=== PATIENT | female | born 1955 | race African-American/Black ===

== ENCOUNTER → 2016-05-21 | Outpatient (REF) | payer MEDICARE, MEDICAID ==
[~2016-05-21] MED LIST: /BISO10TA OR; /PANT40TA; /SUCR1TA OR; ACET65TA OR; ALDA25TA2 OR; ASPI1TAB PO; ASPI325T; ASPI325T OR; ASPI81TA85 PO; BISO5TAB5 PO; CARA1TAB2 PO; COLA100C2 OR; DOXY100T OR; DRIS50002 PO; FERR325T OR; FERR325T PO; FURO20TA2 PO; FURO40TA2 PO; LIPI20TA OR; LOPR50TA OR; MULTIVIT OR; OMEP40CA2 PO; PERC5TAB8 OR; PERC7.5T8 OR; POTA10CA PO; POTA20TA2 OR; PRIL40CA OR; PROT1TAB2 PO; SENO8.6T5 OR; SPIR25TA2 PO; TRAM50TA2 OR; VITA500C OR; VITA500T88 PO; VITMTA PO; ZANT150T OR; atenolol PO; protonix; protonix PO
[2016-05-21 20:23] LABS: ALBUMIN 3.7 GM/DL (3.2-5.2); ALBUMIN/GLOBULIN RATIO 0.95 (1.00-1.93); ALKALINE PHOSPHATASE 99 U/L (45-117); ALT/SGPT 21 U/L (12-78); ANION GAP 7 MEQ/L (8-16); AST/SGOT 15 U/L (15-37); BILIRUBIN,TOTAL 0.4 MG/DL (0.2-1.0); BLOOD UREA NITROGEN 18 MG/DL (7-18); CALCIUM LEVEL 8.6 MG/DL (8.8-10.2); CARBON DIOXIDE LEVEL 30 MEQ/L (21-32); CHLORIDE LEVEL 104 MEQ/L (98-107); CREATININE FOR GFR 0.69 MG/DL (0.55-1.02); GLOMERULAR FILTRATION RATE > 60.0 (>45); GLUCOSE, FASTING 80 MG/DL (80-110); PERCENT SATURATION 4.6 % (13.2-37.4); POTASSIUM SERUM 4.5 MEQ/L (3.5-5.1); SODIUM LEVEL 141 MEQ/L (136-145); TOTAL IRON BINDING CAPACITY 454 UG/DL (250-450); TOTAL PROTEIN 7.6 GM/DL (6.4-8.2)
[2016-05-21 20:27] LABS: BASO % 0.5 % (0.0-1.0); EOS # 0.1 K/mm3 (0.0-0.50); EOS % 1.1 % (0.0-3.0); LARGE UNSTAINED CELL # 0.3 K/mm3 (0.0-0.4); LARGE UNSTAINED CELL % 3.5 % (0.0-4.0); LYMPH # 1.7 K/mm3 (1.5-4.5); LYMPH % 23.4 % (24.0-44.0); MEAN CORPUSCULAR HGB CONC 27.5 g/dl (32.0-36.5); MONO # 0.9 K/mm3 (0.0-0.8); MONO % 12.5 % (0.0-5.0); NEUTROPHILS # 4.2 K/mm3 (1.8-7.7); NEUTROPHILS % 58.9 % (36.0-66.0); PLATELET COUNT, AUTOMATED 267 k/mm3 (150-450); RED CELL DISTRIBUTION WIDTH 18.9 % (11.5-14.5)
[2016-05-21 20:48] LABS: ADD MORPHOLOGY? YES
[2016-05-21 21:01] LABS: ANISOCYTOSIS 1+; HYPOCHROMASIA 2+; POLYCHROMASIA 1+
== END ==
LOC: M SFHCADAM 15:45
PROVIDERS: ATTEND Physician Assistant Medical
DX: D50.9 Iron deficiency anemia, unspecified (principal); R73.01 Impaired fasting glucose; E55.9 Vitamin D deficiency, unspecified
CPT/HCPCS: 80053; 82306; 83036; 83550; 85025; G0463

== ENCOUNTER 2016-05-22 18:03 | Outpatient (CLI) | payer MEDICARE, MEDICAID ==
[~2016-05-22] VITALS: Ht 160 cm; Wt 84.1 kg
[2016-05-22] VITALS (7 sets, daily range): BP systolic 138–150; BP diastolic 61–95
[~2016-05-22 18:03] MED LIST changes: -PROT1TAB2 PO
[2016-05-23 00:35] VITALS: BP 138/65
[2016-05-23 01:10] VITALS: BP 129/71
[2016-05-23 02:10] VITALS: BP 144/67
== END 2016-05-23 02:10 | disposition home or self-care (01) ==
LOC: M OPCLIPED 18:03 → M PED 18:05 → M OPCLIPED 05-23 02:10
PROVIDERS: ATTEND Physician Assistant Medical
DX: D50.9 Iron deficiency anemia, unspecified (principal); Z88.0 Allergy status to penicillin; Z88.2 Allergy status to sulfonamides; Z79.82 Long term (current) use of aspirin; Z79.899 Other long term (current) drug therapy
CPT/HCPCS: 36415; 36430; 86850; 86900; 86901; 86920; P9016

== ENCOUNTER 2016-06-04 08:51 | Outpatient (CLI) | payer MEDICARE, MEDICAID ==
[2016-06-04] MEDS ORDERED: IRON SUCROSE 25 MG in NS 50 ML IV ONE (09:15)
[2016-06-04] MEDS ORDERED: IRON SUCROSE 75 MG in NS 100 ML IV ONE (10:00)
== END 2016-06-04 12:25 | disposition home or self-care (01) ==
LOC: M INFU 08:51
PROVIDERS: ATTEND Physician Assistant Medical
DX: D50.9 Iron deficiency anemia, unspecified (principal); E66.2 Morbid (severe) obesity with alveolar hypoventilation; Z88.0 Allergy status to penicillin; Z88.2 Allergy status to sulfonamides; Z88.8 Allergy status to other drugs, medicaments and biological substances; Z79.82 Long term (current) use of aspirin; Z79.899 Other long term (current) drug therapy
CPT/HCPCS: 96365; 96366; J1756

== ENCOUNTER 2016-06-06 18:44 | Observation (INO) | payer MEDICARE, MEDICAID ==
[~2016-06-06] VITALS: Ht 160 cm; Wt 84.1 kg
[2016-06-06 20:15] LABS: INR 1.03
[2016-06-06 20:22] LABS: ANION GAP 8 MEQ/L (8-16); BLOOD UREA NITROGEN 26 MG/DL (7-18); CALCIUM LEVEL 8.3 MG/DL (8.8-10.2); CARBON DIOXIDE LEVEL 29 MEQ/L (21-32); CHLORIDE LEVEL 106 MEQ/L (98-107); CREATININE FOR GFR 0.81 MG/DL (0.55-1.02); GLOMERULAR FILTRATION RATE > 60.0 (>45); GLUCOSE, FASTING 183 MG/DL (80-110); POTASSIUM SERUM 3.9 MEQ/L (3.5-5.1); SODIUM LEVEL 143 MEQ/L (136-145)
[2016-06-06 20:27] LABS: BASO % 0.3 % (0.0-1.0); EOS # 0.2 K/mm3 (0.0-0.50); EOS % 1.6 % (0.0-3.0); LARGE UNSTAINED CELL # 0.3 K/mm3 (0.0-0.4); LARGE UNSTAINED CELL % 2.6 % (0.0-4.0); LYMPH # 1.9 K/mm3 (1.5-4.5); LYMPH % 17.9 % (24.0-44.0); MEAN CORPUSCULAR HEMOGLOBIN 24.3 pg (27.0-33.0); MEAN CORPUSCULAR HGB CONC 28.5 g/dl (32.0-36.5); MEAN CORPUSCULAR VOLUME 85.1 fl (80.0-96.0); MONO # 0.7 K/mm3 (0.0-0.8); MONO % 6.7 % (0.0-5.0); NEUTROPHILS # 7.4 K/mm3 (1.8-7.7); NEUTROPHILS % 70.9 % (36.0-66.0); PLATELET COUNT, AUTOMATED 192 k/mm3 (150-450); RED CELL DISTRIBUTION WIDTH 22.5 % (11.5-14.5); WHITE BLOOD COUNT 10.4 K/mm3 (4.0-10.0)
[2016-06-06 20:29] LABS: ADD MORPHOLOGY? YES
[2016-06-06 21:40] LABS: ANISOCYTOSIS 3+; POIKILOCYTOSIS 1+; TEAR DROP CELLS 1+
[2016-06-06 21:41] LABS: POLYCHROMASIA 1+; SCHISTOCYTES 1+
[2016-06-06 21:42] LABS: HYPOCHROMASIA 2+
[2016-06-06] MEDS ORDERED: ISOVUE-370 76% 100ML VIAL (Q9967) As Ordered ONE (23:43)
--- NOTE | 2016-06-07 00:30 | REPUSA ---
CLINICAL HISTORY: Dyspnea, exclude PE. TECHNIQUE: Multiple incremental axial, coronal and oblique images are obtained from the thoracic inle t to the upper abdomen. Intravenous contrast material was administered as per pulmonary embolism prot ocol. COMMENTS: There is excellent opacification of pulmonary arterial system without evidence for pulmonary embolism . Aorta is of normal caliber without evidence for dissection or aneurysm. RLL opacity is compaible with pnemonia. There is no evidence of pleural or parenchymal mass. There are no pleural effusions. There is no evid ence of hilar or mediastinal lymphadenopathy. The heart and great vessels are within normal limits. Images of the upper abdomen demonstrate no evidence of adrenal mass. The bony structures are free of lytic or blastic lesions. Multilevel degenerative changes are seen in volving the visualized thoracolumbar spine. Scattered calcifications are seen involving the aorta and major branches compatible with atherosclero sis. IMPRESSION: No evidence for pulmonary embolism. RLL opacity is compaible with pnemonia. Thank you for your kind referral of this patient.
[2016-06-07] MEDS ORDERED: ONDANSETRON 4 MG TAB (S0181) PO PRN (01:00)
[2016-06-07] MEDS ORDERED: PERCOCET 5MG/325MG TAB PO PRN (01:00)
[2016-06-07] MEDS ORDERED: ONDANSETRON 4MG/2ML VIAL (J2405) IV PRN (01:00)
[2016-06-07] MEDS ORDERED: ACETAMINOPHEN TAB 650MG DOSE (2X325MG) PO PRN (01:00)
--- NOTE | 2016-06-07 01:05 | ECGEPIP ---
Stationary ECG Study [facility] Test Date: 2016-06-06 Pat Name: GHADA GARNICA Department: Room: - Gender: F Apprentice: ion : 1955 Requested By: NIKOLAI Vieyra Order Number: [id number] Reading MD: Maximiliano Dodson Measurements Intervals [place] Rate: 105 P: 47 NC: 170 QRS: 60 QRSD: 82 T: 57 QT: 363 QTc: 480 Interpretive Statements SINUS TACHYCARDIA LEFT VENTRICULAR HYPERTROPHY AND ST-T CHANGES Last tracing on 03/27/2016 at 17:27:11. The is now less ST-T abnormality Electronically Signed On 06-07-2016 1:05:10 EST by Maximiliano Dodson
[2016-06-07] MEDS ORDERED: NS 1,000 ML IV SCH (01:26)
[2016-06-07] MEDS ORDERED: FUROSEMIDE 40 MG/4 ML VIAL (J1940) IV ONE (01:30)
[2016-06-07] MEDS ORDERED: diphenhydrAMINE 25 MG CAP PO ONE (01:30)
[2016-06-07] MEDS ORDERED: ACETAMINOPHEN TAB 650MG DOSE (2X325MG) PO ONE (01:30)
[2016-06-07] MEDS ORDERED: BISO5TAB5 PO (01:39)
[2016-06-07] MEDS ORDERED: PROT1TAB2 PO (01:39)
--- NOTE | 2016-06-07 01:56 | EDDOCDS ---
Nurse's Notes [facility] Name: Ghada Garnica Age: 60 yrs Sex: Female : 1955 Arrival Date: 06/06/2016 Time: 18:44 Bed OBSERVATION Private MD: Mattie Moseley N. Diagnosis: Anemia in chronic diseases classified elsewhere-symptomatic;Shortness of breath Presentation: 06/06 18:47 Presenting complaint: Patient states: chest tightness over past 2 weeks approx but over jjr past few days it takes less activity for pt to experience tightness and SOB, blood transfusion of 2 units 10 days ago and iron transfusion this past . Adult Sepsis Screening: The patient does not have new or worsening altered mentation. Patient has a respiratory rate of greater than or equal to 22 (1 point). Systolic blood pressure is greater than 100. Patient has a qSOFA score of 1- Negative Sepsis Screen. Suicide/Homicide risk assessment- the patient denies having any suicidal and/or homicidal ideations and does not present with any other emotional, behavioral or mental health complaints. Status: Patient is not a food service coordinator or dependent. Transition of care: patient was not received from another setting of care. 18:47 Acuity: HERBIE Level 3 jjr 18:47 Method Of Arrival: Walkin/Carried/Asstd jjr Triage Assessment: 18:53 General: Appears in no apparent distress. Pain: Location: chest. HIV screening NA for jjr this visit Offered previously. Respiratory: Onset: The symptoms/episode began/occurred gradually, Airway is patent Respiratory effort is even, labored, Respiratory pattern is regular. Historical: - Allergies: PENICILLINS (Upset stomach); SULFA (SULFONAMIDES) (Upset stomach, Vomit); - Home Meds: 1. aspirin 81 mg Oral tab 1 tab once daily 2. Carafate 1 gram Oral tab 1 tab 4 times per day 3. Colace 100 mg oral cap 1 cap prn PRN 4. ferrous sulfate 325 mg (65 mg iron) Oral tab daily 5. furosemide 40 mg Oral tab 1.5 tabs once daily 6. potassium chloride 20 mEq Oral TbER 1 tab once daily 7. Protonix 40 mg Oral TbEC 1 tab once daily 8. tramadol 50 mg Oral TbDL 50 mg every 6 hours 9. Zantac 150 mg Oral tab 1 tab once daily 10. Zebeta 7.5 mg oral tab 1 tab once daily 11. spironolactone Unknown Oral once daily - PMHx: CHF; Anemia; Hypertension; hypokalemia; - PSHx: Aortic valve replacement; Cholecystectomy; Hysterectomy; ; Colonoscopy; - Social history: Smoking status: Patient states was never smoker of tobacco. No barriers to communication noted, The patient speaks fluent Hungarian. - Family history: Not pertinent. - : The pt / caregiver states he / she is not on anticoagulants. Home medication list is obtained from the patient. - Exposure Risk Screening:: None identified. Screenin:44 Screening information is obtained from the patient. Fall risk: No risks identified. kas2 Assistance ADL's: requires no assistance with activities of daily living. Abuse/DV Screen: The patient / caregiver reports he/she is: not in a situation that causes fear, pain or injury. Nutritional screening: No deficits noted. Advance Directives: Currently, there is no health care proxy. There is no active DNR order. There is no living will. There is no Power of Community Service Manager. home support is adequate. Assessment: 19:42 General: Appears in no apparent distress, uncomfortable, well nourished, well groomed, kas2 Behavior is appropriate for age, cooperative. Pain: Location: chest Pain currently is 5 out of 10 on a pain scale. Pain does not radiate. Quality of pain is described as pressure, Pain began 2-3 days ago Is intermittent. Neurological: Level of Consciousness is awake, alert, Oriented to person, place, time. Cardiovascular: Capillary refill < 3 seconds Heart tones S1 S2 present Rhythm is sinus tachycardia No ectopy. Chest pain is described as Pain is 5 out of 10 on a pain scale. quality is pressure, is located in epigastric area radiates Does not radiate. episodes are intermittent. Respiratory: Airway is patent Respiratory effort is even, unlabored, Respiratory pattern is regular, symmetrical, Breath sounds are clear. Derm: Skin is intact, Skin is dry, Skin temperature is warm. Musculoskeletal: Circulation, motion, and sensation intact Range of motion intact in all extremities. Injury Description: No known injury. 20:15 General: Patient gone to Xray via stretcher with tech.. kas2 20:32 General: Patient back from Xray via stretcher with tech. Patient resettled in bed. No kas2 distress noted. Call sherwood within reach. Will continue to monitor.. 21:21 General: Appears in no apparent distress, comfortable, Behavior is appropriate for age, kas2 cooperative. Pain: Denies pain. Neurological: Level of Consciousness is awake, alert, Oriented to person, place, time. Cardiovascular: Rhythm is sinus tachycardia No ectopy. Respiratory: Airway is patent Respiratory effort is even, unlabored, Respiratory pattern is regular, symmetrical. Derm: Skin is intact, Skin is dry, Skin temperature is warm. 22:31 General: Patient resting in bed talking on the phone. No apparent distress. Appears kas2 comfortable. Call sherwood within reach. Will continue to monitor.. 23:26 General: Appears in no apparent distress, comfortable, Behavior is appropriate for age, kas2 cooperative. Pain: Denies pain. Neurological: Level of Consciousness is awake, alert, Oriented to person, place, time. Cardiovascular: Rhythm is sinus tachycardia No ectopy. Respiratory: Airway is patent Respiratory effort is even, unlabored, Respiratory pattern is regular, Breath sounds are clear bilaterally. Derm: Skin is intact, Skin is dry, Skin temperature is warm. 23:26 General: 1st unit of PRBC's initiated. VSS. RN in room at this time for first 15 min to kas2 monitor patient. Appears comfortable. No apparent distress. Airway patent and respiratory effort even and unlabored. . 06/07 00:05 General: Patient gone to CT scan with RN via stretcher.. kas2 00:14 General: Patient back from CT scan via stretcher with RN. Resettled in bed. No distress kas2 noted. Denies pain or discomfort. Call sherwood within reach. Will continue to monitor.. 01:14 General: 1st unit of PRBC's finished running. VSS. No reaction. Patient tolerated blood kas2 well. Hospitalist in the room assessing patient at this time.. Vital Signs: 06/06 18:46 BP 173 / 76; Pulse 123; Resp 22; Temp 99.0(O); Pulse Ox 99% on R/A; elp 19:19 BP 152 / 72 (auto/); kas2 19:19 Pulse 116 MON; Pulse Ox 96% ; kas2 19:34 BP 134 / 66 (auto/); kas2 19:34 Pulse 114 MON; Pulse Ox 95% ; kas2 19:49 BP 133 / 65 (auto/); kas2 19:49 Pulse 114 MON; Pulse Ox 96% ; kas2 20:19 BP 154 / 67 (auto/); kas2 20:19 Pulse 112 MON; Pulse Ox 94% ; kas2 20:34 BP 139 / 63 (auto/); kas2 20:34 Pulse 112 MON; Pulse Ox 96% ; kas2 20:49 BP 133 / 61 (auto/); kas2 20:49 Pulse 110 MON; Pulse Ox 96% ; kas2 21:04 BP 127 / 63 (auto/); kas2 21:04 Pulse 108 MON; Pulse Ox 96% ; kas2 21:19 BP 125 / 86 (auto/); kas2 21:19 Pulse 106 MON; Pulse Ox 94% ; kas2 21:34 BP 117 / 68 (auto/); kas2 21:34 Pulse 106 MON; Pulse Ox 94% ; kas2 21:49 BP 144 / 82 (auto/); kas2 21:49 Pulse 108 MON; Pulse Ox 96% ; kas2 22:04 BP 153 / 66 (auto/); kas2 22:04 Pulse 116 MON; Pulse Ox 92% ; kas2 22:19 BP 125 / 59 (auto/); kas2 22:19 Pulse 106 MON; Pulse Ox 96% ; kas2 22:34 BP 130 / 61 (auto/); kas2 22:34 Pulse 108 MON; Pulse Ox 94% ; kas2 22:49 BP 129 / 64 (auto/); kas2 22:49 Pulse 102 MON; Pulse Ox 92% ; kas2 23:04 BP 121 / 58 (auto/); kas2 23:04 Pulse 102 MON; Pulse Ox 93% ; kas2 23:19 BP 113 / 58 (auto/); kas2 23:19 Pulse 96 MON; Pulse Ox 96% ; kas2 23:28 Resp 18; Temp 97.7(O); Pain 0/10; kas2 23:34 BP 111 / 59 (auto/); kas2 23:34 Pulse 96 MON; Pulse Ox 96% ; kas2 23:41 BP 112 / 66 (auto/); kas2 23:41 Pulse 96 MON; Pulse Ox 96% ; kas2 23:49 BP 122 / 66 (auto/); kas2 23:49 Pulse 98 MON; Pulse Ox 95% ; kas2 06/07 00:04 BP 114 / 59 (auto/); kas2 00:04 Pulse 104 MON; Pulse Ox 95% ; kas2 00:19 BP 114 / 78 (auto/); kas2 00:19 Pulse 92 MON; Pulse Ox 94% ; kas2 00:34 BP 108 / 69 (auto/); kas2 00:34 Pulse 92 MON; Pulse Ox 93% ; kas2 00:41 BP 142 / 71 (auto/); kas2 00:41 Pulse 92 MON; Pulse Ox 95% ; kas2 00:49 BP 136 / 73 (auto/); kas2 00:49 Pulse 92 MON; Pulse Ox 94% ; kas2 01:04 BP 124 / 58 (auto/); kas2 01:04 Pulse 90 MON; Pulse Ox 96% ; kas2 01:10 BP 127 / 71 (auto/); kas2 01:10 Pulse 90 MON; Pulse Ox 96% ; kas2 01:15 Resp 18; Temp 98.0(O); Pain 0/10; [facility] 01:16 BP 127 / 71; Pulse 90; Resp 18; Temp 98.0(O); Pulse Ox 96% on R/A; Pain 0/10; [facility] Vitals: 06/06 18:46 Log In Time: June 06, 2016 at 18:44. RN notified that patient meets Red Flag elp criteria. ED Course: 18:46 Patient visited by Noreen Cain PCA. elp 18:46 Mattie Moseley is Private Physician. elp 18:46 Patient visited by Noreen Cain PCA. elp 18:46 Patient moved to Waiting elp 18:47 Patient moved to Pre RCE elp 18:50 Triage Initiated jjr 18:54 Adilene Felix,DINO is Primary Nurse. jjr 18:54 Patient moved to 5 jjr 19:09 Maryana Holt RN is Primary Nurse. kas2 19:33 Nikolai Goodson DO is Attending Physician. mm11 19:36 Patient visited by Nikolai Goodson DO. mm11 19:44 Inserted saline lock: 18 gauge in right antecubital area and blood collected. The kas2 patient tolerated the procedure well. No procedures done that require assistance. 19:45 Patient visited by Maryana Holt RN. kas2 19:46 Patient visited by Nikolai Goodson DO. mm11 19:49 Type & Screen Sent. kas2 19:49 B-Type Natiuretic Peptide Sent. kas2 19:49 Basic Metabolic Profile Sent. kas2 19:49 CBC with Diff Sent. kas2 19:49 Cardiac Injury Profile Sent. kas2 19:49 Partial Thromboplastin Time Sent. kas2 19:49 Prothrombin Time Profile\E\INR Sent. kas2 19:49 Troponin Sent. kas2 19:54 Patient visited by Maryana Holt RN. kas2 20:06 EKG done. (by ED staff). Reviewed by Nikolai Goodson DO. jmv 20:07 Patient visited by Eliezer Bowden PCA. jmv 20:37 Patient visited by Maryana Holt RN. kas2 21:18 Patient visited by Maryana Holt RN. kas2 21:22 Patient visited by Maryana Holt RN. kas2 22:04 Patient moved to OBSERVATION mm11 22:15 CARDIAC INJURY PROFILE Sent. kas2 22:17 Patient visited by Maryana Holt RN. kas2 22:20 EKG done. (by ED staff). Reviewed by Nikolai Goodson DO. jmv 22:21 Patient visited by Eliezer Bowden PCA. jmv 22:32 Patient visited by Maryana Holt RN. kas2 22:45 PACKED CELLS Sent. kas2 23:28 Patient visited by Maryana Holt RN. kas2 23:44 Patient visited by Maryana Holt RN. kas2 06/07 00:08 Patient name changed from Ghada\S\\S\Hibbler\S\ to Ghada\S\ \S\Hibbler. EDMS 00:09 [facility] Payment Agreement was scanned into [employer] and attached to record. [id number] 00:19 Patient visited by Maryana Holt RN. kas2 00:34 CT Chest Angio R/O PE Returned. EDMS 01:00 Geraldine Mason is Hospitalizing Provider. mm11 01:17 ELECTROCARDIOGRAM ADULT Returned. EDMS 01:19 Patient visited by Maryana Holt RN. kas2 01:28 The patient / caregiver is instructed regarding the plan of care and ED course. kas2 Administered Medications: 06/06 19:54 Drug: NS 0.9% 500 ml [sodium chloride 0.9 % intravenous solution] Route: IV; Rate: kas2 bolus; Site: right antecubital; 22:17 Follow up: IV Status: Completed infusion; IV Intake: 500ml kas2 Intake: 22:17 IV: 500.00ml; Total: 500.00ml. kas2 Order Results: Lab Order: B-Type Natiuretic Peptide; SPEC'M 06/06/16 19:32 Test: BRAIN NATRIURETIC PEPTIDE; Value: 43.3; Range: <100; Units: PG/ML; Status: F Lab Order: Basic Metabolic Profile; SPEC'M 06/06/16 19:32 Test: GLUCOSE, FASTING; Value: 183; Range: 80-110; Abnormal: Above high normal; Units: MG/DL; Status: F Test: BLOOD UREA NITROGEN; Value: 26; Range: 7-18; Abnormal: Above high normal; Units: MG/DL; Status: F Test: CREATININE FOR GFR; Value: 0.81; Range: 0.55-1.02; Units: MG/DL; Status: F Test: GLOMERULAR FILTRATION RATE; Value: > 60.0; Range: >45; Status: F Test: SODIUM LEVEL; Value: 143; Range: 136-145; Units: MEQ/L; Status: F Test: POTASSIUM SERUM; Value: 3.9; Range: 3.5-5.1; Units: MEQ/L; Status: F Test: CHLORIDE LEVEL; Value: 106; Range: 98-107; Units: MEQ/L; Status: F Test: CARBON DIOXIDE LEVEL; Value: 29; Range: 21-32; Units: MEQ/L; Status: F Test: ANION GAP; Value: 8; Range: 8-16; Units: MEQ/L; Status: F Test: CALCIUM LEVEL; Value: 8.3; Range: 8.8-10.2; Abnormal: Below low normal; Units: MG/DL; Status: F Test Note: ; Units are mL/min/1.73 m2 Chronic Kidney Disease Staging per NKF: Stage I & II GFR >=60 Normal to Mildly Decreased Stage III GFR 30-59 Moderately Decreased Stage IV GFR 15-29 Severely Decreased Stage V GFR <15 Very Little GFR Left ESRD GFR <15 on [facility] Lab Order: CBC with Diff; SPEC'M 06/06/16 19:32 Test: WHITE BLOOD COUNT; Value: 10.4; Range: 4.0-10.0; Abnormal: Above high normal; Units: K/mm3; Status: F Test: RED BLOOD COUNT; Value: 3.38; Range: 4.00-5.40; Abnormal: Below low normal; Units: M/mm3; Status: F Test: HEMOGLOBIN; Value: 8.2; Range: 12.0-16.0; Abnormal: Below low normal; Units: g/dl; Status: F Test: HEMATOCRIT; Value: 28.7; Range: 36.0-47.0; Abnormal: Below low normal; Units: %; Status: F Test: MEAN CORPUSCULAR VOLUME; Value: 85.1; Range: 80.0-96.0; Units: fl; Status: F Test: MEAN CORPUSCULAR HEMOGLOBIN; Value: 24.3; Range: 27.0-33.0; Abnormal: Below low normal; Units: pg; Status: F Test: MEAN CORPUSCULAR HGB CONC; Value: 28.5; Range: 32.0-36.5; Abnormal: Below low normal; Units: g/dl; Status: F Test: RED CELL DISTRIBUTION WIDTH; Value: 22.5; Range: 11.5-14.5; Abnormal: Above high normal; Units: %; Status: F Test: PLATELET COUNT, AUTOMATED; Value: 192; Range: 150-450; Units: k/mm3; Status: F Test: NEUTROPHILS %; Value: 70.9; Range: 36.0-66.0; Abnormal: Above high normal; Units: %; Status: F Test: LYMPH %; Value: 17.9; Range: 24.0-44.0; Abnormal: Below low normal; Units: %; Status: F Test: MONO %; Value: 6.7; Range: 0.0-5.0; Abnormal: Above high normal; Units: %; Status: F Test: EOS %; Value: 1.6; Range: 0.0-3.0; Units: %; Status: F Test: BASO %; Value: 0.3; Range: 0.0-1.0; Units: %; Status: F Test: LARGE UNSTAINED CELL %; Value: 2.6; Range: 0.0-4.0; Units: %; Status: F Test: NEUTROPHILS #; Value: 7.4; Range: 1.8-7.7; Units: K/mm3; Status: F Test: LYMPH #; Value: 1.9; Range: 1.5-4.5; Units: K/mm3; Status: F Test: MONO #; Value: 0.7; Range: 0.0-0.8; Units: K/mm3; Status: F Test: EOS #; Value: 0.2; Range: 0.0-0.50; Units: K/mm3; Status: F Test: BASO #; Value: 0.0; Range: 0.0-0.2; Units: K/mm3; Status: F Test: LARGE UNSTAINED CELL #; Value: 0.3; Range: 0.0-0.4; Units: K/mm3; Status: F Lab Order: Cardiac Injury Profile; [facility] 06/06/16 19:32 Test: CPK CREATINE PHOSPHOKINASE; Value: 165; Range: 26-192; Units: U/L; Status: F Test: CK-MB VALUE MASS; Value: 1.8; Range: 0.0-3.6; Units: NG/ML; Status: F Test: MB/CK RELATIVE INDEX; Value: 1.09; Range: < OR =4; Status: F Test Note: ; DIAGNOSIS CRITERIA MMB ng/ml Relative Index (RI) NON-AMI < or = 5 N/A MORGAN ZONE > 5 < or = 4 AMI > 5 > 4 Lab Order: Partial Thromboplastin Time; [facility] 06/06/16 19:32 Test: PARTIAL THROMBOPLASTIN TIME; Value: 30.8; Range: 26.6-37.1; Units: SECONDS; Status: F Lab Order: Prothrombin Time Profile\E\INR; [facility] 06/06/16 19:32 Test: PROTHROMBIN TIME; Value: 13.6; Range: 12.3-14.5; Units: SECONDS; Status: F Test: INR; Value: 1.03; Status: F Test Note: ; THERAPUTIC HUMAN INR VALUES INDICATIONS NORMAL RANGES PROPHYLAXIS/TREATMENT OF: VENOUS THROMBOSIS 2.0-3.0 PULMONARY EMBOLISM 2.0-3.0 PREVENTION OF SYSTEMIC EMBOLISM FROM: TISSUE HEART VALVES 2.0-3.0 ACUTE MYOCARDIAL INFARCTION 2.0-3.0 VALVULAR HEART DISEASE 2.0-3.0 ATRIAL FIBRILLATION 2.0-3.0 MECHANICAL VALVES(HIGH RISK) 2.5-3.5 RECURRENT MYOCARDIAL INFARCTION 2.5-3.5 Lab Order: Troponin; [facility] 06/06/16 19:32 Test: TROPONIN I; Value: 0.03; Range: < 0.10; Units: NG/ML; Status: F Test Note: ; Troponin I Reference Interval for Siemens [place] LOCI: 99th Percentile= 0.00-0.045 ng/ml Risk Stratification: <= 0.10 ng/ml Decreased Risk for Adverse Clinical Events. 0.10-1.50 ng/ml Increased Risk for Adverse Clinical Events. Evaluation of additional criterion and/or repeat testing in 2-6 hours is suggested to rule out myocardial damage. >= 1.50 ng/ml Indicative of Myocardial Injury. Lab Order: Type & Screen; [facility] 06/06/16 19:32 Test: BLOOD TYPE; Value: O POS; Status: F Test: AB SCREEN (INDIRECT HAYDEN)GEL; Value: NEGATIVE; Status: F Test: IMMEDIATE SPIN CROSSMATCH; Value: [id number] O NEGATIVE Compatible? Y; Status: F Test: IMMEDIATE SPIN CROSSMATCH; Value: [id number] O POSITIVE Compatible? Y; Status: F Lab Order: RBC MORPH PROF NO CHARGE; [facility] 06/06/16 19:32 Test: PLATELET ESTIMATE; Range: NORMAL; Status: I Test: POLYCHROMASIA; Value: 1+; Status: F Test: HYPOCHROMASIA; Value: 2+; Status: F Test: POIKILOCYTOSIS; Value: 1+; Status: F Test: BASOPHILIC STIPPLING; Value: 1+; Status: F Test: ANISOCYTOSIS; Value: 3+; Status: F Test: SCHISTOCYTES; Value: 1+; Status: F Test: TEAR DROP CELLS; Value: 1+; Status: F Test: PLATELET ESTIMATE; Value: NORMAL; Range: NORMAL; Status: F Lab Order: CARDIAC INJURY PROFILE; [facility] 06/06/16 22:09 Test: CPK CREATINE PHOSPHOKINASE; Value: 240; Range: 26-192; Abnormal: Above high normal; Units: U/L; Status: F Test: CK-MB VALUE MASS; Value: 1.3; Range: 0.0-3.6; Units: NG/ML; Status: F Test: MB/CK RELATIVE INDEX; Value: 0.54; Range: < OR =4; Status: F Test Note: ; DIAGNOSIS CRITERIA MMB ng/ml Relative Index (RI) NON-AMI < or = 5 N/A MORGAN ZONE > 5 < or = 4 AMI > 5 > 4 Lab Order: TROPONIN; SPEC'M 06/06/16 22:09 Test: TROPONIN I; Value: 0.03; Range: < 0.10; Units: NG/ML; Status: F Test Note: ; Troponin I Reference Interval for Siemens [place] LOCI: 99th Percentile= 0.00-0.045 ng/ml Risk Stratification: <= 0.10 ng/ml Decreased Risk for Adverse Clinical Events. 0.10-1.50 ng/ml Increased Risk for Adverse Clinical Events. Evaluation of additional criterion and/or repeat testing in 2-6 hours is suggested to rule out myocardial damage. >= 1.50 ng/ml Indicative of Myocardial Injury. Radiology Order: CT Chest Angio R/O PE Test: CT Chest Angio R/O PE REASON FOR EXAMINATION: Shortness of Breath; ; CLINICAL HISTORY: Dyspnea, exclude PE.; TECHNIQUE: Multiple incremental axial, coronal and oblique images are obtained from the thoracic inle; t to the upper abdomen. Intravenous contrast material was administered as per pulmonary embolism prot; ocol.; COMMENTS:; There is excellent opacification of pulmonary arterial system without evidence for pulmonary embolism; . Aorta is of normal caliber without evidence for dissection or aneurysm.; RLL opacity is compaible with pnemonia.; There is no evidence of pleural or parenchymal mass. There are no pleural effusions. There is no evid; ence of hilar or mediastinal lymphadenopathy. The heart and great vessels are within normal limits.; Images of the upper abdomen demonstrate no evidence of adrenal mass.; The bony structures are free of lytic or blastic lesions. Multilevel degenerative changes are seen in; volving the visualized thoracolumbar spine.; Scattered calcifications are seen involving the aorta and major branches compatible with atherosclero; sis.; IMPRESSION:; No evidence for pulmonary embolism.; RLL opacity is compaible with pnemonia.; Thank you for your kind referral of this patient.; ; Radiology Order: ELECTROCARDIOGRAM ADULT Test: ELECTROCARDIOGRAM ADULT REASON FOR EXAMINATION: REPEAT; Stationary ECG Study; [facility]; ; Test Date: 2016-06-06; Pat Name: GHADA GARNICA Department:; Room: -; Gender: F Bench Scientist: ion; : 1955 Requested By: NIKOLAI Vieyra; Order Number: [id number] Reading MD: Maximiliano Dodson; Measurements; Intervals [place]; Rate: 105 P: 47; HI: 170 QRS: 60; QRSD: 82 T: 57; QT: 363; QTc: 480; Interpretive Statements; SINUS TACHYCARDIA; LEFT VENTRICULAR HYPERTROPHY AND ST-T CHANGES; Last tracing on 03/27/2016 at 17:27:11. The is now less ST-T abnormality; Electronically Signed On 06-07-2016 1:05:10 EST by Maximiliano Dodson; Outcome: 06/07 01:01 Decision to Hospitalize by Provider. mm11 01:27 Discharge Assessment: patient administered narcotics - no. The following High Risk [facility] Discharge criteria are identified: None. Admitted to Med/Surg accompanied by tech, via stretcher, with chart. Condition: good Condition: stable Condition: improved. CT Study completed. Property :Personal belongings accompany Pt. 01:55 Patient left the ED. [facility] Signatures: Dispatcher [employer] EDMS Nikolai Goodson, DO DO mm11 Solange Gipson RN RN jjr Patchen, Erin, FIELD MARKETING LEAD FIELD MARKETING LEAD Tania Zavala, Reg Reg [id number] Maryana Holt RN RN kas2 Eliezer Bowden, FIELD MARKETING LEAD FIELD MARKETING LEAD jmv Corrections: (The following items were deleted from the chart) 06/06 22:24 22:17 PACKED CELLS+BBK sent. [facility] EDID [id number]
--- NOTE | 2016-06-07 01:56 | EDDOCDS ---
Physician Documentation [facility] Name: Nedra Astudillo Age: 60 yrs Sex: Female : 1955 Arrival Date: 06/06/2016 Time: 18:44 Bed OBSERVATION Private MD: Mattie Moseley N. Disposition: 06/07/16 01:01 Hospitalization ordered by Geraldine Mason for Inpatient Admission. Preliminary diagnosis are Anemia in chronic diseases classified elsewhere - symptomatic, Shortness of breath. - Bed requested for [address] [place]. - Status is Inpatient Admission. kas2 - Condition is Stable. - Problem is an acute exacerbation. - Symptoms have improved. Historical: - Allergies: PENICILLINS (Upset stomach); SULFA (SULFONAMIDES) (Upset stomach, Vomit); - Home Meds: 1. aspirin 81 mg Oral tab 1 tab once daily 2. Carafate 1 gram Oral tab 1 tab 4 times per day 3. Colace 100 mg oral cap 1 cap prn PRN 4. ferrous sulfate 325 mg (65 mg iron) Oral tab daily 5. furosemide 40 mg Oral tab 1.5 tabs once daily 6. potassium chloride 20 mEq Oral TbER 1 tab once daily 7. Protonix 40 mg Oral TbEC 1 tab once daily 8. tramadol 50 mg Oral TbDL 50 mg every 6 hours 9. Zantac 150 mg Oral tab 1 tab once daily 10. Zebeta 7.5 mg oral tab 1 tab once daily 11. spironolactone Unknown Oral once daily - PMHx: CHF; Anemia; Hypertension; hypokalemia; - PSHx: Aortic valve replacement; Cholecystectomy; Hysterectomy; ; Colonoscopy; - Social history: Smoking status: Patient states was never smoker of tobacco. No barriers to communication noted, The patient speaks fluent Khmer. - Family history: Not pertinent. - : The pt / caregiver states he / she is not on anticoagulants. Home medication list is obtained from the patient. - Exposure Risk Screening:: None identified. Vital Signs: 06/06 18:46 BP 173 / 76; Pulse 123; Resp 22; Temp 99.0(O); Pulse Ox 99% on R/A; elp 19:19 BP 152 / 72 (auto/); kas2 19:19 Pulse 116 MON; Pulse Ox 96% ; kas2 19:34 BP 134 / 66 (auto/); kas2 19:34 Pulse 114 MON; Pulse Ox 95% ; kas2 19:49 BP 133 / 65 (auto/); kas2 19:49 Pulse 114 MON; Pulse Ox 96% ; kas2 20:19 BP 154 / 67 (auto/); kas2 20:19 Pulse 112 MON; Pulse Ox 94% ; kas2 20:34 BP 139 / 63 (auto/); kas2 20:34 Pulse 112 MON; Pulse Ox 96% ; kas2 20:49 BP 133 / 61 (auto/); kas2 20:49 Pulse 110 MON; Pulse Ox 96% ; kas2 21:04 BP 127 / 63 (auto/); kas2 21:04 Pulse 108 MON; Pulse Ox 96% ; kas2 21:19 BP 125 / 86 (auto/); kas2 21:19 Pulse 106 MON; Pulse Ox 94% ; kas2 21:34 BP 117 / 68 (auto/); kas2 21:34 Pulse 106 MON; Pulse Ox 94% ; kas2 21:49 BP 144 / 82 (auto/); kas2 21:49 Pulse 108 MON; Pulse Ox 96% ; kas2 22:04 BP 153 / 66 (auto/); kas2 22:04 Pulse 116 MON; Pulse Ox 92% ; kas2 22:19 BP 125 / 59 (auto/); kas2 22:19 Pulse 106 MON; Pulse Ox 96% ; kas2 22:34 BP 130 / 61 (auto/); kas2 22:34 Pulse 108 MON; Pulse Ox 94% ; kas2 22:49 BP 129 / 64 (auto/); kas2 22:49 Pulse 102 MON; Pulse Ox 92% ; kas2 23:04 BP 121 / 58 (auto/); kas2 23:04 Pulse 102 MON; Pulse Ox 93% ; kas2 23:19 BP 113 / 58 (auto/); kas2 23:19 Pulse 96 MON; Pulse Ox 96% ; kas2 23:28 Resp 18; Temp 97.7(O); Pain 0/10; kas2 23:34 BP 111 / 59 (auto/); kas2 23:34 Pulse 96 MON; Pulse Ox 96% ; kas2 23:41 BP 112 / 66 (auto/); kas2 23:41 Pulse 96 MON; Pulse Ox 96% ; kas2 23:49 BP 122 / 66 (auto/); kas2 23:49 Pulse 98 MON; Pulse Ox 95% ; kas2 06/07 00:04 BP 114 / 59 (auto/); kas2 00:04 Pulse 104 MON; Pulse Ox 95% ; kas2 00:19 BP 114 / 78 (auto/); kas2 00:19 Pulse 92 MON; Pulse Ox 94% ; kas2 00:34 BP 108 / 69 (auto/); kas2 00:34 Pulse 92 MON; Pulse Ox 93% ; kas2 00:41 BP 142 / 71 (auto/); kas2 00:41 Pulse 92 MON; Pulse Ox 95% ; kas2 00:49 BP 136 / 73 (auto/); kas2 00:49 Pulse 92 MON; Pulse Ox 94% ; kas2 01:04 BP 124 / 58 (auto/); kas2 01:04 Pulse 90 MON; Pulse Ox 96% ; kas2 01:10 BP 127 / 71 (auto/); kas2 01:10 Pulse 90 MON; Pulse Ox 96% ; kas2 01:15 Resp 18; Temp 98.0(O); Pain 0/10; kas2 01:16 BP 127 / 71; Pulse 90; Resp 18; Temp 98.0(O); Pulse Ox 96% on R/A; Pain 0/10; kas2 MDM: 06/06 19:46 NS 0.9% 500 ml IV at bolus once ordered. mm11 19:46 Chemical Laboratory Chief/Pulse Ox/q 30 min VS ordered. mm11 19:46 IV Saline Lock ordered. mm11 19:46 Rhythm Strip to chart ordered. mm11 19:46 Undress patient appropriately for examination ordered. mm11 19:48 Chest, 2 View (pa\E\lat) Ordered. EDMS 19:48 B-Type Natiuretic Peptide Ordered. EDMS 19:48 Basic Metabolic Profile Ordered. EDMS 19:48 CBC with Diff Ordered. EDMS 19:48 Cardiac Injury Profile Ordered. EDMS 19:48 Partial Thromboplastin Time Ordered. EDMS 19:48 Prothrombin Time Profile\E\INR Ordered. EDMS 19:48 Troponin Ordered. EDMS 19:48 Type & Screen Ordered. EDMS 19:48 ECG WITH READING ER PHYS+CARDIAG ordered. EDMS 20:30 RBC MORPH PROF NO CHARGE Ordered. EDMS 21:03 Basic Metabolic Profile Reviewed. mm11 21:03 CBC with Diff Reviewed. mm11 21:03 B-Type Natiuretic Peptide Reviewed. mm11 21:03 Cardiac Injury Profile Reviewed. mm11 21:03 Partial Thromboplastin Time Reviewed. mm11 21:03 Prothrombin Time Profile\E\INR Reviewed. mm11 21:03 Troponin Reviewed. mm11 21:03 Type & Screen Reviewed. mm11 21:05 The patient was assigned to Observation Status due to uncertainty of mm11 diagnosis/disposition, The patient was assigned to Observation Status due to the intensity of required treatment, and remained under my care. 21:59 Redraw CIP &Troponin (put time in details section) ordered. mm11 21:59 Repeat EKG (put time details section) ordered. mm11 22:01 CT Chest Angio R/O PE Ordered. EDMS 22:01 Repeat EKG (put time details section) complete. jlm 22:01 Redraw CIP &Troponin (put time in details section) complete. jlm 22:03 CARDIAC INJURY PROFILE Ordered. EDMS 22:03 TROPONIN Ordered. EDMS 22:04 ELECTROCARDIOGRAM ADULT ordered. EDMS 22:19 CBC with Diff Reviewed. mm11 22:19 RBC MORPH PROF NO CHARGE Reviewed. mm11 22:24 PACKED CELLS Ordered. EDMS 22:25 Transfuse PRBC's 1 unit, ensure PRBCs ordered in lab ordered. mm11 22:56 CARDIAC INJURY PROFILE Reviewed. mm11 22:56 Type & Screen Reviewed. mm11 22:56 TROPONIN Reviewed. mm11 23:36 Financial registration complete. [facility] 06/07 00:09 [facility] Payment Agreement was scanned into [employer] and attached to record. [email or web address] 00:38 Type & Screen Reviewed. mm11 00:38 CT Chest Angio R/O PE Reviewed. mm11 01:00 Admission / Observation Status ordered. EDMS 01:00 NO ADDED SALT DIET ordered. EDMS 01:00 CARDIAC MARKER PANEL Ordered. EDMS 01:01 CARDIAC MARKER PANEL Ordered. EDMS 01:01 BED REQUEST+ADM ordered. EDMS 01:36 PACKED CELLS Ordered. EDMS 01:36 TYPE & SCREEN Ordered. EDMS Administered Medications: 06/06 19:54 Drug: NS 0.9% 500 ml [sodium chloride 0.9 % intravenous solution] Route: IV; Rate: kas2 bolus; Site: right antecubital; 22:17 Follow up: IV Status: Completed infusion; IV Intake: 500ml kas2 Signatures: Dispatcher [employer] EDMS Goodson Lenard, DO DO mm11 Solange Gipson, RN RN Lisa Hannah RN RN [email or web address] Nancy Oglesby, Quality Assurance Assessor Unit [facility] Tania Crandall, Reg Reg [email or web address] Maryana HoltRN RN kas2 The chart was reviewed and I authenticate all verbal orders and agree with the evaluation and treatment provided.Corrections: (The following items were deleted from the chart) 22: 22:01 PACKED CELLS+BBK ordered. EDMS EDMS : 22:02 TYPE & SCREEN ordered. EDMS EDMS Attachments: 06/07 00:09 [facility] Payment Agreement [email or web address] MTDD
[2016-06-07 02:00] VITALS: BP 130/77
--- NOTE | 2016-06-07 02:08 | HPEPDOC ---
Medical History and Physical Date of Admission Jun 07, 2016 at 00:54 History and Physical HISTORY AND PHYSICAL Date of admission: 06/07/2016 PCP: JESSE Chau Chief complaint: Short of breath with chest pressure HPI: 60-year-old female with chronic diastolic CHF, hypertension, aortic stenosis status post biosynthetic valve replacement, chronic anemia requiring monthly transfusions for the past 5 years, who presented with shortness of breath and chest pressure. She reports that her most recent transfusion was approximately 2 weeks ago when her hemoglobin was 8.0. She did not feel much better after this so her PCP ordered an iron transfusion which happened this past week. She states that over the last several days she has had severe progression of her shortness of breath and has also had central chest pressure any time she exerts herself even the slightest. She states that this chest pressure does not radiate anywhere. Her primary physicians suspect that this is secondary to her chronic GI bleed. The patient has had multiple scopes done, with the most recent EGD and colonoscopy being in 2014, but no bleed was ever identified. However, a small bowel capsule endoscopy in [place] did reveal the source to be from the second part of the duodenum. She states that she has also had some dizziness while standing, but she denies any dark or tarry stool. Past medical history: Chronic diastolic CHF, hypertension, aortic stenosis status post biosynthetic valve replacement, chronic anemia requiring monthly transfusions Past surgical history: Hysterectomy, BSO, cholecystectomy, , bioprosthetic aortic valve replacement Family history: Diabetes mellitus, pancreatic cancer Social history: The patient does not smoke, drink any alcohol, or use drugs. She is normally independent at baseline. She is a mother of 4, and currently has one of her children living with her. Allergies: Penicillin, sulfa Review of systems: General: Positive for chills. Negative for fever Eyes: Negative for vision changes and ocular discharge ENT: Negative for sore throat and nose bleed Cardiovascular: Positive for chest pressure, negative for palpitations Respiratory: Positive for shortness of breath, negative for cough GI: Negative for nausea, vomiting, diarrhea, constipation Musculoskeletal: Negative for neck and back pain Skin: Negative for rash Neuro: Positive for headache and dizziness with exertion, negative for numbness and tingling Psych: Negative for depression and suicidal ideation Endocrine: Negative for polyuria : Negative for dysuria Heme: Negative for bruising and bleeding Home meds: See below Physical exam: Vital signs: Blood pressure 127/71, HR 89, temperature 99.0, O2 sat 97% on room air, RR 16 Gen.: awake, alert, no acute distress Eyes: Extraocular movements intact, normal sclera ENT: Moist mucous membranes Cardiovascular: RRR, no murmurs rubs or gallops Lungs: clear to auscultation bilaterally, no rales, rhonchi, or wheeze Abdomen: Soft, NT/ND, normal BS Musculoskeletal: normal range of motion Extremities: No peripheral edema Neuro: alert and oriented 3, normal speech, no focal deficits Psych: Normal mood with congruent affect Labs and radiology: See below Hemoglobin 8.2 Troponin negative [address] of the chest is negative for pulmonary embolism does show a potential right lower lobe infiltrate Assessment and plan: 60-year-old female with chronic diastolic CHF, hypertension, aortic stenosis status post biosynthetic valve replacement, chronic anemia requiring monthly transfusions for the past 5 years, who presented with shortness of breath and chest pressure. She is admitted for symptomatic anemia. 1. Symptomatic anemia: The patient has a known chronic GI bleed, requiring recurrent transfusion. Her most recent transfusion was 2 weeks ago when her hemoglobin was 8.0. She is only at 8.2 today and demonstrates classic symptoms of anemia, with chest pressure and shortness of breath that worsened with exertion. We will transfuse her another 2 units of PRBCs. Continue home iron and PPI. 2. Shortness of breath: I suspect that this is entirely secondary to her symptomatic anemia. The CT of her chest does not show any pulmonary embolism, but it does report a possible right lower lobe infiltrate. Since she is afebrile , has a normal white count, and denies cough, I do not suspect that this is pneumonia. However, we will continue to follow her vital signs and clinical course closely. 3. Chest pressure: Again, I suspect that this is entirely secondary to her symptomatic anemia. Her EKG is unchanged, and her initial 2 troponins are negative. We will check another troponin, but I do not suspect that this will be revealing. 4. Chronic diastolic CHF: The patient currently appears compensated. We will continue her home Lasix, spironolactone, and potassium supplement. We will give her a dose of IV Lasix after her transfusion. 5. Hypertension: Continue home beta desirae, spironolactone, and Lasix. 6. Aortic stenosis status post biosynthetic valve replacement: Continue home baby aspirin. DVT prophylaxis: SCDs Dispo: in place in observation status on the service of Dr. Moy CODE STATUS: Full code Vital Signs see above Laboratory Data Labs 24H Laboratory Tests 2 06/06/16 19:32: Activated Partial Thromboplast Time 30.8, Anion Gap 8, Anisocytosis 3+, B-Type Natriuretic Peptide 43.3, Basophilic Stippling 1+, White Blood Count 10.4H, Red Blood Count 3.38L, Hemoglobin 8.2L, Hematocrit 28.7L, Mean Corpuscular Volume 85.1, Mean Corpuscular Hemoglobin 24.3L, Mean Corpuscular Hemoglobin Concent 28.5L, Red Cell Distribution Width 22.5H, Platelet Count 192, Neutrophils (%) ( Auto) 70.9H, Lymphocytes (%) (Auto) 17.9L, Monocytes (%) (Auto) 6.7H, Eosinophils (%) (Auto) 1.6, Basophils (%) (Auto) 0.3, Neutrophils # (Auto) 7.4, Lymphocytes # (Auto) 1.9, Monocytes # (Auto) 0.7, Eosinophils # (Auto) 0.2, Basophils # (Auto) 0.0, Blood Urea Nitrogen 26H, Creatinine 0.81, Sodium Level 143, Potassium Level 3.9, Chloride Level 106, Carbon Dioxide Level 29, Calcium Level 8.3L, Total Creatine Kinase 165, Creatine Kinase MB 1.8, Creatine Kinase MB Relative Index 1.09, Glomerular Filtration Rate > 60.0, Hypochromasia 2+, Large Unclassified Cells # 0.3, Large Unclassified Cells % 2.6, Platelet Estimate NORMAL, Poikilocytosis 1+, Polychromasia 1+, Prothromb Time International Ratio 1.03, Prothrombin Time 13.6, Schistocytes 1+, Tear Drop Cells 1+, Troponin I 0.03 06/06/16 22:09: Total Creatine Kinase 240H, Creatine Kinase MB 1.3, Creatine Kinase MB Relative Index 0.54, Troponin I 0.03 CBC/BMP Laboratory Tests 06/06/16 19:32 Calcium Level 8.3 L, Total Creatine Kinase 165, Red Blood Count 3.38 L, Mean Corpuscular Volume 85.1, Mean Corpuscular Hemoglobin 24.3 L, Mean Corpuscular Hemoglobin Concent 28.5 L, Red Cell Distribution Width 22.5 H, Neutrophils (%) ( Auto) 70.9 H, Lymphocytes (%) (Auto) 17.9 L, Monocytes (%) (Auto) 6.7 H, Eosinophils (%) (Auto) 1.6, Basophils (%) (Auto) 0.3, Neutrophils # (Auto) 7.4, Lymphocytes # (Auto) 1.9, Monocytes # (Auto) 0.7, Eosinophils # (Auto) 0.2, Basophils # (Auto) 0.0 Home Medications Scheduled Aspirin (Aspirin 81) 81 Mg Tab 81 MG PO DAILY Bisoprolol Fumarate (Bisoprolol Fumarate) 5 Mg Tab 5 MG PO DAILY Ferrous Sulfate (Ferrous Sulfate) 325 Mg Tab 325 MG PO DAILY Furosemide (Furosemide) 40 Mg Tab 60 MG PO DAILY Pantoprazole Sodium Sesquihydr (Protonix) 40 Mg Tab 40 MG PO DAILY Potassium Chloride (Klor-Con M10) 10 Meq Tabcr 20 MEQ PO DAILY Spironolactone (Spironolactone) 25 Mg Tab 25 MG PO DAILY Sucralfate (Carafate) 1 Gm Tab 1 GM PO QID Allergies Coded Allergies: Sulfa Drugs (Verified Adverse Reaction, Intermediate, UPSET STOMACH, ) Sulfamethoxazole (Verified Adverse Reaction, Intermediate, UPSET STOMACH, 08/10/12) Trimethoprim (Verified Adverse Reaction, Intermediate, UPSET STOMACH, ) Penicillins (Verified Adverse Reaction, Mild, UPSET STOMACH, 08/10/12) NAUSEA CRISTAL LIU Jun 07, 2016 02:08
[2016-06-07] MEDS ORDERED: FUROSEMIDE 100 MG/10 ML VIAL (J1940) IV ONE (02:15)
[2016-06-07 06:00] VITALS: BP 122/74
[2016-06-07 06:18] LABS: MEAN CORPUSCULAR HEMOGLOBIN 25.8 pg (27.0-33.0); MEAN CORPUSCULAR HGB CONC 30.7 g/dl (32.0-36.5); MEAN CORPUSCULAR VOLUME 84.2 fl (80.0-96.0); RED CELL DISTRIBUTION WIDTH 22.6 % (11.5-14.5); WHITE BLOOD COUNT 8.8 K/mm3 (4.0-10.0)
[2016-06-07] MEDS ORDERED: SUCRALFATE 1 GM TAB PO SCH (09:00)
[2016-06-07] MEDS ORDERED: SPIRONOLACTONE 25 MG TAB PO SCH (09:00)
[2016-06-07] MEDS ORDERED: ASPIRIN 81 MG ENTERIC TAB PO SCH (09:00)
[2016-06-07] MEDS ORDERED: PANTOPRAZOLE 40MG TAB (PROTONIX) PO SCH (09:00)
[2016-06-07] MEDS ORDERED: POTASSIUM CHLORIDE 10 MEQ SR TABLET PO SCH (09:00)
[2016-06-07] MEDS ORDERED: FERROUS SULFATE 325MG TAB PO SCH (09:00)
[2016-06-07] MEDS ORDERED: BISOPROLOL FUMARATE 5 MG TAB PO SCH (09:00)
[2016-06-07] MEDS ORDERED: FUROSEMIDE 20 MG TAB PO SCH (09:00)
[2016-06-07 09:01] VITALS: BP 122/74
--- NOTE | 2016-06-07 15:46 | ECGEPIP ---
Stationary ECG Study [facility] - ED Test Date: 2016-06-06 Pat Name: GHADA GARNICA Department: Room: [place] [address] Gender: F Etiology Teacher: ion : 1955 Requested By: NIKOLAI Vieyra Order Number: [id number] Reading MD: Geeta Morrow Measurements Intervals [place] Rate: 111 P: 24 UT: 120 QRS: 64 QRSD: 85 T: 51 QT: 351 QTc: 478 Interpretive Statements SINUS TACHYCARDIA LEFT VENTRICULAR HYPERTROPHY AND ST-T CHANGE VS ISCHEMIA INCREASED RATE 03/27/16 Electronically Signed On 06-07-2016 15:45:47 EST by Geeta Morrow
--- NOTE | 2016-06-08 11:06 | REP ---
PA and lateral chest: Comparison is 03/27/2016. There is elevation of both hemidiaphragms, as previously. There is chronic atelectasis above the elevated right hemidiaphragm. There is a large air bubble in the gastric fundus beneath the left hemidiaphragm. These findings are unchanged. The lung cunha otherwise clear. Cardiac size is normal. The jaden, mediastinum, and bony thorax are unremarkable. There is a prosthetic cardiac valve, unchanged. Impression: No new or acute cardiopulmonary findings. No change from the previous study. Signed by Baltazar Huff MD 06/07/2016 08:21 A
--- NOTE | 2016-06-09 02:56 | EDDOCDS ---
Nurse's Notes [facility] Name: Nedra Garnica Age: 60 yrs Sex: Female : 1955 Arrival Date: 06/06/2016 Time: 18:44 Bed OBSERVATION Private MD: Mattie Moseley N. Diagnosis: Anemia in chronic diseases classified elsewhere-symptomatic;Shortness of breath Presentation: 06/06 18:47 Presenting complaint: Patient states: chest tightness over past 2 weeks approx but over jjr past few days it takes less activity for pt to experience tightness and SOB, blood transfusion of 2 units 10 days ago and iron transfusion this past . Adult Sepsis Screening: The patient does not have new or worsening altered mentation. Patient has a respiratory rate of greater than or equal to 22 (1 point). Systolic blood pressure is greater than 100. Patient has a qSOFA score of 1- Negative Sepsis Screen. Suicide/Homicide risk assessment- the patient denies having any suicidal and/or homicidal ideations and does not present with any other emotional, behavioral or mental health complaints. Status: Patient is not a check services clerk or dependent. Transition of care: patient was not received from another setting of care. 18:47 Acuity: HERBIE Level 3 jjr 18:47 Method Of Arrival: Walkin/Carried/Asstd jjr Triage Assessment: 18:53 General: Appears in no apparent distress. Pain: Location: chest. HIV screening NA for jjr this visit Offered previously. Respiratory: Onset: The symptoms/episode began/occurred gradually, Airway is patent Respiratory effort is even, labored, Respiratory pattern is regular. Historical: - Allergies: PENICILLINS (Upset stomach); SULFA (SULFONAMIDES) (Upset stomach, Vomit); - Home Meds: 1. aspirin 81 mg Oral tab 1 tab once daily 2. Carafate 1 gram Oral tab 1 tab 4 times per day 3. Colace 100 mg oral cap 1 cap prn PRN 4. ferrous sulfate 325 mg (65 mg iron) Oral tab daily 5. furosemide 40 mg Oral tab 1.5 tabs once daily 6. potassium chloride 20 mEq Oral TbER 1 tab once daily 7. Protonix 40 mg Oral TbEC 1 tab once daily 8. tramadol 50 mg Oral TbDL 50 mg every 6 hours 9. Zantac 150 mg Oral tab 1 tab once daily 10. Zebeta 7.5 mg oral tab 1 tab once daily 11. spironolactone Unknown Oral once daily - PMHx: CHF; Anemia; Hypertension; hypokalemia; - PSHx: Aortic valve replacement; Cholecystectomy; Hysterectomy; ; Colonoscopy; - Social history: Smoking status: Patient states was never smoker of tobacco. No barriers to communication noted, The patient speaks fluent Nepali. - Family history: Not pertinent. - : The pt / caregiver states he / she is not on anticoagulants. Home medication list is obtained from the patient. - Exposure Risk Screening:: None identified. Screenin:44 Screening information is obtained from the patient. Fall risk: No risks identified. kas2 Assistance ADL's: requires no assistance with activities of daily living. Abuse/DV Screen: The patient / caregiver reports he/she is: not in a situation that causes fear, pain or injury. Nutritional screening: No deficits noted. Advance Directives: Currently, there is no health care proxy. There is no active DNR order. There is no living will. There is no Power of Medical Pathology Teacher. home support is adequate. Assessment: 19:42 General: Appears in no apparent distress, uncomfortable, well nourished, well groomed, kas2 Behavior is appropriate for age, cooperative. Pain: Location: chest Pain currently is 5 out of 10 on a pain scale. Pain does not radiate. Quality of pain is described as pressure, Pain began 2-3 days ago Is intermittent. Neurological: Level of Consciousness is awake, alert, Oriented to person, place, time. Cardiovascular: Capillary refill < 3 seconds Heart tones S1 S2 present Rhythm is sinus tachycardia No ectopy. Chest pain is described as Pain is 5 out of 10 on a pain scale. quality is pressure, is located in epigastric area radiates Does not radiate. episodes are intermittent. Respiratory: Airway is patent Respiratory effort is even, unlabored, Respiratory pattern is regular, symmetrical, Breath sounds are clear. Derm: Skin is intact, Skin is dry, Skin temperature is warm. Musculoskeletal: Circulation, motion, and sensation intact Range of motion intact in all extremities. Injury Description: No known injury. 20:15 General: Patient gone to Xray via stretcher with tech.. kas2 20:32 General: Patient back from Xray via stretcher with tech. Patient resettled in bed. No kas2 distress noted. Call sherwood within reach. Will continue to monitor.. 21:21 General: Appears in no apparent distress, comfortable, Behavior is appropriate for age, kas2 cooperative. Pain: Denies pain. Neurological: Level of Consciousness is awake, alert, Oriented to person, place, time. Cardiovascular: Rhythm is sinus tachycardia No ectopy. Respiratory: Airway is patent Respiratory effort is even, unlabored, Respiratory pattern is regular, symmetrical. Derm: Skin is intact, Skin is dry, Skin temperature is warm. 22:31 General: Patient resting in bed talking on the phone. No apparent distress. Appears kas2 comfortable. Call sherwood within reach. Will continue to monitor.. 23:26 General: Appears in no apparent distress, comfortable, Behavior is appropriate for age, kas2 cooperative. Pain: Denies pain. Neurological: Level of Consciousness is awake, alert, Oriented to person, place, time. Cardiovascular: Rhythm is sinus tachycardia No ectopy. Respiratory: Airway is patent Respiratory effort is even, unlabored, Respiratory pattern is regular, Breath sounds are clear bilaterally. Derm: Skin is intact, Skin is dry, Skin temperature is warm. 23:26 General: 1st unit of PRBC's initiated. VSS. RN in room at this time for first 15 min to kas2 monitor patient. Appears comfortable. No apparent distress. Airway patent and respiratory effort even and unlabored. . 06/07 00:05 General: Patient gone to CT scan with RN via stretcher.. kas2 00:14 General: Patient back from CT scan via stretcher with RN. Resettled in bed. No distress kas2 noted. Denies pain or discomfort. Call sherwood within reach. Will continue to monitor.. 01:14 General: 1st unit of PRBC's finished running. VSS. No reaction. Patient tolerated blood kas2 well. Hospitalist in the room assessing patient at this time.. Vital Signs: 06/06 18:46 BP 173 / 76; Pulse 123; Resp 22; Temp 99.0(O); Pulse Ox 99% on R/A; elp 19:19 BP 152 / 72 (auto/); kas2 19:19 Pulse 116 MON; Pulse Ox 96% ; kas2 19:34 BP 134 / 66 (auto/); kas2 19:34 Pulse 114 MON; Pulse Ox 95% ; kas2 19:49 BP 133 / 65 (auto/); kas2 19:49 Pulse 114 MON; Pulse Ox 96% ; kas2 20:19 BP 154 / 67 (auto/); kas2 20:19 Pulse 112 MON; Pulse Ox 94% ; kas2 20:34 BP 139 / 63 (auto/); kas2 20:34 Pulse 112 MON; Pulse Ox 96% ; kas2 20:49 BP 133 / 61 (auto/); kas2 20:49 Pulse 110 MON; Pulse Ox 96% ; kas2 21:04 BP 127 / 63 (auto/); kas2 21:04 Pulse 108 MON; Pulse Ox 96% ; kas2 21:19 BP 125 / 86 (auto/); kas2 21:19 Pulse 106 MON; Pulse Ox 94% ; kas2 21:34 BP 117 / 68 (auto/); kas2 21:34 Pulse 106 MON; Pulse Ox 94% ; kas2 21:49 BP 144 / 82 (auto/); kas2 21:49 Pulse 108 MON; Pulse Ox 96% ; kas2 22:04 BP 153 / 66 (auto/); kas2 22:04 Pulse 116 MON; Pulse Ox 92% ; kas2 22:19 BP 125 / 59 (auto/); kas2 22:19 Pulse 106 MON; Pulse Ox 96% ; kas2 22:34 BP 130 / 61 (auto/); kas2 22:34 Pulse 108 MON; Pulse Ox 94% ; kas2 22:49 BP 129 / 64 (auto/); kas2 22:49 Pulse 102 MON; Pulse Ox 92% ; kas2 23:04 BP 121 / 58 (auto/); kas2 23:04 Pulse 102 MON; Pulse Ox 93% ; kas2 23:19 BP 113 / 58 (auto/); kas2 23:19 Pulse 96 MON; Pulse Ox 96% ; kas2 23:28 Resp 18; Temp 97.7(O); Pain 0/10; kas2 23:34 BP 111 / 59 (auto/); kas2 23:34 Pulse 96 MON; Pulse Ox 96% ; kas2 23:41 BP 112 / 66 (auto/); kas2 23:41 Pulse 96 MON; Pulse Ox 96% ; kas2 23:49 BP 122 / 66 (auto/); kas2 23:49 Pulse 98 MON; Pulse Ox 95% ; kas2 06/07 00:04 BP 114 / 59 (auto/); kas2 00:04 Pulse 104 MON; Pulse Ox 95% ; kas2 00:19 BP 114 / 78 (auto/); kas2 00:19 Pulse 92 MON; Pulse Ox 94% ; kas2 00:34 BP 108 / 69 (auto/); kas2 00:34 Pulse 92 MON; Pulse Ox 93% ; kas2 00:41 BP 142 / 71 (auto/); kas2 00:41 Pulse 92 MON; Pulse Ox 95% ; kas2 00:49 BP 136 / 73 (auto/); kas2 00:49 Pulse 92 MON; Pulse Ox 94% ; kas2 01:04 BP 124 / 58 (auto/); kas2 01:04 Pulse 90 MON; Pulse Ox 96% ; kas2 01:10 BP 127 / 71 (auto/); kas2 01:10 Pulse 90 MON; Pulse Ox 96% ; kas2 01:15 Resp 18; Temp 98.0(O); Pain 0/10; [facility] 01:16 BP 127 / 71; Pulse 90; Resp 18; Temp 98.0(O); Pulse Ox 96% on R/A; Pain 0/10; [facility] Vitals: 06/06 18:46 Log In Time: June 06, 2016 at 18:44. RN notified that patient meets Red Flag elp criteria. ED Course: 18:46 Patient visited by Noreen Cain PCA. elp 18:46 Mattie Moseley is Private Physician. elp 18:46 Patient visited by Noreen Cain PCA. elp 18:46 Patient moved to Waiting elp 18:47 Patient moved to Pre RCE elp 18:50 Triage Initiated jjr 18:54 Adilene Felix,DINO is Primary Nurse. jjr 18:54 Patient moved to 5 jjr 19:09 Maryana Holt RN is Primary Nurse. kas2 19:33 Nikolai Goodson DO is Attending Physician. mm11 19:36 Patient visited by Nikolai Goodson DO. mm11 19:44 Inserted saline lock: 18 gauge in right antecubital area and blood collected. The kas2 patient tolerated the procedure well. No procedures done that require assistance. 19:45 Patient visited by Maryana Holt RN. kas2 19:46 Patient visited by Nikolai Goodson DO. mm11 19:49 Type & Screen Sent. kas2 19:49 B-Type Natiuretic Peptide Sent. kas2 19:49 Basic Metabolic Profile Sent. kas2 19:49 CBC with Diff Sent. kas2 19:49 Cardiac Injury Profile Sent. kas2 19:49 Partial Thromboplastin Time Sent. kas2 19:49 Prothrombin Time Profile\E\INR Sent. kas2 19:49 Troponin Sent. kas2 19:54 Patient visited by Maryana Holt RN. kas2 20:06 EKG done. (by ED staff). Reviewed by Nikolai Goodson DO. jmv 20:07 Patient visited by Eliezer Bowden PCA. jmv 20:37 Patient visited by Maryana Holt RN. kas2 21:18 Patient visited by Maryana Holt RN. kas2 21:22 Patient visited by Maryana Holt RN. kas2 22:04 Patient moved to OBSERVATION mm11 22:15 CARDIAC INJURY PROFILE Sent. kas2 22:17 Patient visited by Maryana Holt RN. kas2 22:20 EKG done. (by ED staff). Reviewed by Nikolai Goodson DO. jmv 22:21 Patient visited by Eliezer Bowden PCA. jmv 22:32 Patient visited by Maryana Holt RN. kas2 22:45 PACKED CELLS Sent. kas2 23:28 Patient visited by Maryana Holt RN. kas2 23:44 Patient visited by Maryana Holt RN. kas2 06/07 00:08 Patient name changed from Nedra\S\\S\Hibbler\S\ to Nedra\S\ \S\Hibbler. EDMS 00:09 [facility] Payment Agreement was scanned into [employer] and attached to record. ks16 00:19 Patient visited by Maryana Holt RN. kas2 00:34 CT Chest Angio R/O PE Returned. EDMS 01:00 Geraldine Mason is Hospitalizing Provider. mm11 01:17 ELECTROCARDIOGRAM ADULT Returned. EDMS 01:19 Patient visited by Maryana Holt RN. kas2 01:28 The patient / caregiver is instructed regarding the plan of care and ED course. kas2 02:10 Patient visited by Maryana Holt RN. kas2 19:30 Radiology Report was scanned into [employer] and attached to record. kf3 19:30 Consents was scanned into [employer] and attached to record. kf3 19:31 ECG/EKG was scanned into [employer] and attached to record. kf3 19:31 Trend VS was scanned into [employer] and attached to record. kf3 20:29 T-Sheet-- Draft Copy was scanned into [employer] and attached to record. klr Administered Medications: 06/06 19:54 Drug: NS 0.9% 500 ml [sodium chloride 0.9 % intravenous solution] Route: IV; Rate: kas2 bolus; Site: right antecubital; 22:17 Follow up: IV Status: Completed infusion; IV Intake: 500ml kas2 Attachments: 19:30 Consents kf3 19:31 Trend VS kf3 Intake: 06/06 22:17 IV: 500.00ml; Total: 500.00ml. kas2 Order Results: Lab Order: B-Type Natiuretic Peptide; SPEC'M 06/06/16 19:32 Test: BRAIN NATRIURETIC PEPTIDE; Value: 43.3; Range: <100; Units: PG/ML; Status: F Lab Order: Basic Metabolic Profile; SPEC'M 06/06/16 19:32 Test: GLUCOSE, FASTING; Value: 183; Range: 80-110; Abnormal: Above high normal; Units: MG/DL; Status: F Test: BLOOD UREA NITROGEN; Value: 26; Range: 7-18; Abnormal: Above high normal; Units: MG/DL; Status: F Test: CREATININE FOR GFR; Value: 0.81; Range: 0.55-1.02; Units: MG/DL; Status: F Test: GLOMERULAR FILTRATION RATE; Value: > 60.0; Range: >45; Status: F Test: SODIUM LEVEL; Value: 143; Range: 136-145; Units: MEQ/L; Status: F Test: POTASSIUM SERUM; Value: 3.9; Range: 3.5-5.1; Units: MEQ/L; Status: F Test: CHLORIDE LEVEL; Value: 106; Range: 98-107; Units: MEQ/L; Status: F Test: CARBON DIOXIDE LEVEL; Value: 29; Range: 21-32; Units: MEQ/L; Status: F Test: ANION GAP; Value: 8; Range: 8-16; Units: MEQ/L; Status: F Test: CALCIUM LEVEL; Value: 8.3; Range: 8.8-10.2; Abnormal: Below low normal; Units: MG/DL; Status: F Test Note: ; Units are mL/min/1.73 m2 Chronic Kidney Disease Staging per NKF: Stage I & II GFR >=60 Normal to Mildly Decreased Stage III GFR 30-59 Moderately Decreased Stage IV GFR 15-29 Severely Decreased Stage V GFR <15 Very Little GFR Left ESRD GFR <15 on PLANT PULLER Lab Order: CBC with Diff; SPEC'M 06/06/16 19:32 Test: WHITE BLOOD COUNT; Value: 10.4; Range: 4.0-10.0; Abnormal: Above high normal; Units: K/mm3; Status: F Test: RED BLOOD COUNT; Value: 3.38; Range: 4.00-5.40; Abnormal: Below low normal; Units: M/mm3; Status: F Test: HEMOGLOBIN; Value: 8.2; Range: 12.0-16.0; Abnormal: Below low normal; Units: g/dl; Status: F Test: HEMATOCRIT; Value: 28.7; Range: 36.0-47.0; Abnormal: Below low normal; Units: %; Status: F Test: MEAN CORPUSCULAR VOLUME; Value: 85.1; Range: 80.0-96.0; Units: fl; Status: F Test: MEAN CORPUSCULAR HEMOGLOBIN; Value: 24.3; Range: 27.0-33.0; Abnormal: Below low normal; Units: pg; Status: F Test: MEAN CORPUSCULAR HGB CONC; Value: 28.5; Range: 32.0-36.5; Abnormal: Below low normal; Units: g/dl; Status: F Test: RED CELL DISTRIBUTION WIDTH; Value: 22.5; Range: 11.5-14.5; Abnormal: Above high normal; Units: %; Status: F Test: PLATELET COUNT, AUTOMATED; Value: 192; Range: 150-450; Units: k/mm3; Status: F Test: NEUTROPHILS %; Value: 70.9; Range: 36.0-66.0; Abnormal: Above high normal; Units: %; Status: F Test: LYMPH %; Value: 17.9; Range: 24.0-44.0; Abnormal: Below low normal; Units: %; Status: F Test: MONO %; Value: 6.7; Range: 0.0-5.0; Abnormal: Above high normal; Units: %; Status: F Test: EOS %; Value: 1.6; Range: 0.0-3.0; Units: %; Status: F Test: BASO %; Value: 0.3; Range: 0.0-1.0; Units: %; Status: F Test: LARGE UNSTAINED CELL %; Value: 2.6; Range: 0.0-4.0; Units: %; Status: F Test: NEUTROPHILS #; Value: 7.4; Range: 1.8-7.7; Units: K/mm3; Status: F Test: LYMPH #; Value: 1.9; Range: 1.5-4.5; Units: K/mm3; Status: F Test: MONO #; Value: 0.7; Range: 0.0-0.8; Units: K/mm3; Status: F Test: EOS #; Value: 0.2; Range: 0.0-0.50; Units: K/mm3; Status: F Test: BASO #; Value: 0.0; Range: 0.0-0.2; Units: K/mm3; Status: F Test: LARGE UNSTAINED CELL #; Value: 0.3; Range: 0.0-0.4; Units: K/mm3; Status: F Lab Order: Cardiac Injury Profile; SPEC'M 06/06/16 19:32 Test: CPK CREATINE PHOSPHOKINASE; Value: 165; Range: 26-192; Units: U/L; Status: F Test: CK-MB VALUE MASS; Value: 1.8; Range: 0.0-3.6; Units: NG/ML; Status: F Test: MB/CK RELATIVE INDEX; Value: 1.09; Range: < OR =4; Status: F Test Note: ; DIAGNOSIS CRITERIA MMB ng/ml Relative Index (RI) NON-AMI < or = 5 N/A MORGAN ZONE > 5 < or = 4 AMI > 5 > 4 Lab Order: Partial Thromboplastin Time; SPEC'M 06/06/16 19:32 Test: PARTIAL THROMBOPLASTIN TIME; Value: 30.8; Range: 26.6-37.1; Units: SECONDS; Status: F Lab Order: Prothrombin Time Profile\E\INR; SPEC'M 06/06/16 19:32 Test: PROTHROMBIN TIME; Value: 13.6; Range: 12.3-14.5; Units: SECONDS; Status: F Test: INR; Value: 1.03; Status: F Test Note: ; THERAPUTIC HUMAN INR VALUES INDICATIONS NORMAL RANGES PROPHYLAXIS/TREATMENT OF: VENOUS THROMBOSIS 2.0-3.0 PULMONARY EMBOLISM 2.0-3.0 PREVENTION OF SYSTEMIC EMBOLISM FROM: TISSUE HEART VALVES 2.0-3.0 ACUTE MYOCARDIAL INFARCTION 2.0-3.0 VALVULAR HEART DISEASE 2.0-3.0 ATRIAL FIBRILLATION 2.0-3.0 MECHANICAL VALVES(HIGH RISK) 2.5-3.5 RECURRENT MYOCARDIAL INFARCTION 2.5-3.5 Lab Order: Troponin; SPEC'M 06/06/16 19:32 Test: TROPONIN I; Value: 0.03; Range: < 0.10; Units: NG/ML; Status: F Test Note: ; Troponin I Reference Interval for [employer] LOCI: 99th Percentile= 0.00-0.045 ng/ml Risk Stratification: <= 0.10 ng/ml Decreased Risk for Adverse Clinical Events. 0.10-1.50 ng/ml Increased Risk for Adverse Clinical Events. Evaluation of additional criterion and/or repeat testing in 2-6 hours is suggested to rule out myocardial damage. >= 1.50 ng/ml Indicative of Myocardial Injury. Lab Order: Type & Screen; SPEC'M 06/06/16 19:32 Test: BLOOD TYPE; Value: O POS; Status: F Test: AB SCREEN (INDIRECT HAYDEN)GEL; Value: NEGATIVE; Status: F Test: IMMEDIATE SPIN CROSSMATCH; Value: [id number] O NEGATIVE Compatible? Y; Status: F Test: IMMEDIATE SPIN CROSSMATCH; Value: [id number] O POSITIVE Compatible? Y; Status: F Lab Order: RBC MORPH PROF NO CHARGE; SPEC'M 06/06/16 19:32 Test: PLATELET ESTIMATE; Range: NORMAL; Status: I Test: POLYCHROMASIA; Value: 1+; Status: F Test: HYPOCHROMASIA; Value: 2+; Status: F Test: POIKILOCYTOSIS; Value: 1+; Status: F Test: BASOPHILIC STIPPLING; Value: 1+; Status: F Test: ANISOCYTOSIS; Value: 3+; Status: F Test: SCHISTOCYTES; Value: 1+; Status: F Test: TEAR DROP CELLS; Value: 1+; Status: F Test: PLATELET ESTIMATE; Value: NORMAL; Range: NORMAL; Status: F Lab Order: CARDIAC INJURY PROFILE; SPEC'M 06/06/16 22:09 Test: CPK CREATINE PHOSPHOKINASE; Value: 240; Range: 26-192; Abnormal: Above high normal; Units: U/L; Status: F Test: CK-MB VALUE MASS; Value: 1.3; Range: 0.0-3.6; Units: NG/ML; Status: F Test: MB/CK RELATIVE INDEX; Value: 0.54; Range: < OR =4; Status: F Test Note: ; DIAGNOSIS CRITERIA MMB ng/ml Relative Index (RI) NON-AMI < or = 5 N/A MORGAN ZONE > 5 < or = 4 AMI > 5 > 4 Lab Order: TROPONIN; SPEC'M 06/06/16 22:09 Test: TROPONIN I; Value: 0.03; Range: < 0.10; Units: NG/ML; Status: F Test Note: ; Troponin I Reference Interval for [employer] LOCI: 99th Percentile= 0.00-0.045 ng/ml Risk Stratification: <= 0.10 ng/ml Decreased Risk for Adverse Clinical Events. 0.10-1.50 ng/ml Increased Risk for Adverse Clinical Events. Evaluation of additional criterion and/or repeat testing in 2-6 hours is suggested to rule out myocardial damage. >= 1.50 ng/ml Indicative of Myocardial Injury. Radiology Order: CT Chest Angio R/O PE Test: CT Chest Angio R/O PE REASON FOR EXAMINATION: Shortness of Breath; ; CLINICAL HISTORY: Dyspnea, exclude PE.; TECHNIQUE: Multiple incremental axial, coronal and oblique images are obtained from the thoracic inle; t to the upper abdomen. Intravenous contrast material was administered as per pulmonary embolism prot; ocol.; COMMENTS:; There is excellent opacification of pulmonary arterial system without evidence for pulmonary embolism; . Aorta is of normal caliber without evidence for dissection or aneurysm.; RLL opacity is compaible with pnemonia.; There is no evidence of pleural or parenchymal mass. There are no pleural effusions. There is no evid; ence of hilar or mediastinal lymphadenopathy. The heart and great vessels are within normal limits.; Images of the upper abdomen demonstrate no evidence of adrenal mass.; The bony structures are free of lytic or blastic lesions. Multilevel degenerative changes are seen in; volving the visualized thoracolumbar spine.; Scattered calcifications are seen involving the aorta and major branches compatible with atherosclero; sis.; IMPRESSION:; No evidence for pulmonary embolism.; RLL opacity is compaible with pnemonia.; Thank you for your kind referral of this patient.; ; Radiology Order: ELECTROCARDIOGRAM ADULT Test: ELECTROCARDIOGRAM ADULT REASON FOR EXAMINATION: REPEAT; Stationary ECG Study; [facility]; ; Test Date: 2016-06-06; Pat Name: NEDRA GARNICA Department:; Room: -; Gender: F Plant Operator Helper: ion; : 1955 Requested By: NIKOLAI Vieyra; Order Number: [id number] Reading MD: Maximiliano Dodson; Measurements; Intervals [place]; Rate: 105 P: 47; MO: 170 QRS: 60; QRSD: 82 T: 57; QT: 363; QTc: 480; Interpretive Statements; SINUS TACHYCARDIA; LEFT VENTRICULAR HYPERTROPHY AND ST-T CHANGES; Last tracing on 03/27/2016 at 17:27:11. The is now less ST-T abnormality; Electronically Signed On 06-07-2016 1:05:10 EST by Maximiliano Dodson; Outcome: 06/07 01:01 Decision to Hospitalize by Provider. mm11 01:27 Discharge Assessment: patient administered narcotics - no. The following High Risk [facility] Discharge criteria are identified: None. Admitted to Med/Surg accompanied by tech, via stretcher, with chart. Condition: good Condition: stable Condition: improved. CT Study completed. Property :Personal belongings accompany Pt. 01:55 Patient left the ED. kas2 Signatures: Dispatcher [employer] Nikolai Connors DO DO mm11 Carlos Rainey, Reg Reg kf3 Solange Gipson, RN RN bertinr Noreen Cain, DIRECTOR OF SPECIAL EVENTS DIRECTOR OF SPECIAL EVENTS Tania Zavala, Reg Reg ks16 Maryana HoltRN RN kas2 Emmy Duval Jose, JOSELITO DIRECTOR OF SPECIAL EVENTS jmv Corrections: (The following items were deleted from the chart) 06/06 22:24 22:17 PACKED CELLS+BBK sent. tho DUQUE Chart Complete MTDD
--- NOTE | 2016-06-09 02:56 | EDDOCDS ---
Physician Documentation [facility] Name: Nedra Astudillo Age: 60 yrs Sex: Female : 1955 Arrival Date: 06/06/2016 Time: 18:44 Bed OBSERVATION Private MD: Mattie Moseley N. Disposition: 06/07/16 01:01 Hospitalization ordered by Geraldine Mason for Inpatient Admission. Preliminary diagnosis are Anemia in chronic diseases classified elsewhere - symptomatic, Shortness of breath. - Bed requested for 4 [place]. - Status is Inpatient Admission. kas2 - Condition is Stable. - Problem is an acute exacerbation. - Symptoms have improved. Historical: - Allergies: PENICILLINS (Upset stomach); SULFA (SULFONAMIDES) (Upset stomach, Vomit); - Home Meds: 1. aspirin 81 mg Oral tab 1 tab once daily 2. Carafate 1 gram Oral tab 1 tab 4 times per day 3. Colace 100 mg oral cap 1 cap prn PRN 4. ferrous sulfate 325 mg (65 mg iron) Oral tab daily 5. furosemide 40 mg Oral tab 1.5 tabs once daily 6. potassium chloride 20 mEq Oral TbER 1 tab once daily 7. Protonix 40 mg Oral TbEC 1 tab once daily 8. tramadol 50 mg Oral TbDL 50 mg every 6 hours 9. Zantac 150 mg Oral tab 1 tab once daily 10. Zebeta 7.5 mg oral tab 1 tab once daily 11. spironolactone Unknown Oral once daily - PMHx: CHF; Anemia; Hypertension; hypokalemia; - PSHx: Aortic valve replacement; Cholecystectomy; Hysterectomy; ; Colonoscopy; - Social history: Smoking status: Patient states was never smoker of tobacco. No barriers to communication noted, The patient speaks fluent Georgian. - Family history: Not pertinent. - : The pt / caregiver states he / she is not on anticoagulants. Home medication list is obtained from the patient. - Exposure Risk Screening:: None identified. Vital Signs: 06/06 18:46 BP 173 / 76; Pulse 123; Resp 22; Temp 99.0(O); Pulse Ox 99% on R/A; elp 19:19 BP 152 / 72 (auto/); kas2 19:19 Pulse 116 MON; Pulse Ox 96% ; kas2 19:34 BP 134 / 66 (auto/); kas2 19:34 Pulse 114 MON; Pulse Ox 95% ; kas2 19:49 BP 133 / 65 (auto/); kas2 19:49 Pulse 114 MON; Pulse Ox 96% ; kas2 20:19 BP 154 / 67 (auto/); kas2 20:19 Pulse 112 MON; Pulse Ox 94% ; kas2 20:34 BP 139 / 63 (auto/); kas2 20:34 Pulse 112 MON; Pulse Ox 96% ; kas2 20:49 BP 133 / 61 (auto/); kas2 20:49 Pulse 110 MON; Pulse Ox 96% ; kas2 21:04 BP 127 / 63 (auto/); kas2 21:04 Pulse 108 MON; Pulse Ox 96% ; kas2 21:19 BP 125 / 86 (auto/); kas2 21:19 Pulse 106 MON; Pulse Ox 94% ; kas2 21:34 BP 117 / 68 (auto/); kas2 21:34 Pulse 106 MON; Pulse Ox 94% ; kas2 21:49 BP 144 / 82 (auto/); kas2 21:49 Pulse 108 MON; Pulse Ox 96% ; kas2 22:04 BP 153 / 66 (auto/); kas2 22:04 Pulse 116 MON; Pulse Ox 92% ; kas2 22:19 BP 125 / 59 (auto/); kas2 22:19 Pulse 106 MON; Pulse Ox 96% ; kas2 22:34 BP 130 / 61 (auto/); kas2 22:34 Pulse 108 MON; Pulse Ox 94% ; kas2 22:49 BP 129 / 64 (auto/); kas2 22:49 Pulse 102 MON; Pulse Ox 92% ; kas2 23:04 BP 121 / 58 (auto/); kas2 23:04 Pulse 102 MON; Pulse Ox 93% ; kas2 23:19 BP 113 / 58 (auto/); kas2 23:19 Pulse 96 MON; Pulse Ox 96% ; kas2 23:28 Resp 18; Temp 97.7(O); Pain 0/10; kas2 23:34 BP 111 / 59 (auto/); kas2 23:34 Pulse 96 MON; Pulse Ox 96% ; kas2 23:41 BP 112 / 66 (auto/); kas2 23:41 Pulse 96 MON; Pulse Ox 96% ; kas2 23:49 BP 122 / 66 (auto/); kas2 23:49 Pulse 98 MON; Pulse Ox 95% ; kas2 06/07 00:04 BP 114 / 59 (auto/); kas2 00:04 Pulse 104 MON; Pulse Ox 95% ; kas2 00:19 BP 114 / 78 (auto/); kas2 00:19 Pulse 92 MON; Pulse Ox 94% ; kas2 00:34 BP 108 / 69 (auto/); kas2 00:34 Pulse 92 MON; Pulse Ox 93% ; kas2 00:41 BP 142 / 71 (auto/); kas2 00:41 Pulse 92 MON; Pulse Ox 95% ; kas2 00:49 BP 136 / 73 (auto/); kas2 00:49 Pulse 92 MON; Pulse Ox 94% ; kas2 01:04 BP 124 / 58 (auto/); kas2 01:04 Pulse 90 MON; Pulse Ox 96% ; kas2 01:10 BP 127 / 71 (auto/); kas2 01:10 Pulse 90 MON; Pulse Ox 96% ; kas2 01:15 Resp 18; Temp 98.0(O); Pain 0/10; kas2 01:16 BP 127 / 71; Pulse 90; Resp 18; Temp 98.0(O); Pulse Ox 96% on R/A; Pain 0/10; kas2 MDM: 06/06 19:46 NS 0.9% 500 ml IV at bolus once ordered. mm11 19:46 [employer] Supervisor/Pulse Ox/q 30 min VS ordered. mm11 19:46 IV Saline Lock ordered. mm11 19:46 Rhythm Strip to chart ordered. mm11 19:46 Undress patient appropriately for examination ordered. mm11 19:48 Chest, 2 View (pa\E\lat) Ordered. EDMS 19:48 B-Type Natiuretic Peptide Ordered. EDMS 19:48 Basic Metabolic Profile Ordered. EDMS 19:48 CBC with Diff Ordered. EDMS 19:48 Cardiac Injury Profile Ordered. EDMS 19:48 Partial Thromboplastin Time Ordered. EDMS 19:48 Prothrombin Time Profile\E\INR Ordered. EDMS 19:48 Troponin Ordered. EDMS 19:48 Type & Screen Ordered. EDMS 19:48 ECG WITH READING ER PHYS+CARDIAG ordered. EDMS 20:30 RBC MORPH PROF NO CHARGE Ordered. EDMS 21:03 Basic Metabolic Profile Reviewed. mm11 21:03 CBC with Diff Reviewed. mm11 21:03 B-Type Natiuretic Peptide Reviewed. mm11 21:03 Cardiac Injury Profile Reviewed. mm11 21:03 Partial Thromboplastin Time Reviewed. mm11 21:03 Prothrombin Time Profile\E\INR Reviewed. mm11 21:03 Troponin Reviewed. mm11 21:03 Type & Screen Reviewed. mm11 21:05 The patient was assigned to Observation Status due to uncertainty of mm11 diagnosis/disposition, The patient was assigned to Observation Status due to the intensity of required treatment, and remained under my care. 21:59 Redraw CIP &Troponin (put time in details section) ordered. mm11 21:59 Repeat EKG (put time details section) ordered. mm11 22:01 CT Chest Angio R/O PE Ordered. EDMS 22:01 Repeat EKG (put time details section) complete. jlm 22:01 Redraw CIP &Troponin (put time in details section) complete. jlm 22:03 CARDIAC INJURY PROFILE Ordered. EDMS 22:03 TROPONIN Ordered. EDMS 22:04 ELECTROCARDIOGRAM ADULT ordered. EDMS 22:19 CBC with Diff Reviewed. mm11 22:19 RBC MORPH PROF NO CHARGE Reviewed. mm11 22:24 PACKED CELLS Ordered. EDMS 22:25 Transfuse PRBC's 1 unit, ensure PRBCs ordered in lab ordered. mm11 22:56 CARDIAC INJURY PROFILE Reviewed. mm11 22:56 Type & Screen Reviewed. mm11 22:56 TROPONIN Reviewed. mm11 23:36 Financial registration complete. [email or web address] 06/07 00:09 [facility] Payment Agreement was scanned into [employer] and attached to record. [email or web address] 00:38 Type & Screen Reviewed. mm11 00:38 CT Chest Angio R/O PE Reviewed. mm11 01:00 Admission / Observation Status ordered. EDMS 01:00 NO ADDED SALT DIET ordered. EDMS 01:00 CARDIAC MARKER PANEL Ordered. EDMS 01:01 CARDIAC MARKER PANEL Ordered. EDMS 01:01 BED REQUEST+ADM ordered. EDMS 01:36 PACKED CELLS Ordered. EDMS 01:36 TYPE & SCREEN Ordered. EDMS 19:30 Radiology Report was scanned into [employer] and attached to record. kf3 19:31 Consents was scanned into [employer] and attached to record. kf3 19:31 ECG/EKG was scanned into [employer] and attached to record. kf3 19:31 Trend VS was scanned into [employer] and attached to record. kf3 20:29 T-Sheet-- Draft Copy was scanned into [employer] and attached to record. klr Administered Medications: 06/06 19:54 Drug: NS 0.9% 500 ml [sodium chloride 0.9 % intravenous solution] Route: IV; Rate: kas2 bolus; Site: right antecubital; 22:17 Follow up: IV Status: Completed infusion; IV Intake: 500ml kas2 Signatures: Dispatcher [employer] EDMS Lenard Goodson, DO mm11 Carlos Rainey, Reg Reg kf3 Solange Gipson, RN RN Lisa Hannah RN RN [email or web address] Nancy Oglesby, Paramedic Rn Unit jlTania Renee, Reg Reg ks16 Maryana Holt RN RN kas2 Emmy Duval The chart was reviewed and I authenticate all verbal orders and agree with the evaluation and treatment provided.Corrections: (The following items were deleted from the chart) 22:24 22:01 PACKED CELLS+BBK ordered. EDMS EDMS 22: 22:02 TYPE & SCREEN ordered. EDMS EDMS Attachments: 06/07 00:09 [facility] Payment Agreement [email or web address] 19:31 ECG/EKG kf3 20:29 T-Sheet-- Draft Copy klr Chart Complete MTDD
== END 2016-06-07 11:44 | disposition home or self-care (01) ==
LOC: M ED 18:44 → M MSPAV 18:45 → UNDOADMOB 06-07 00:54 → M ED INP 06-07 00:54 → M MSPAV 06-07 02:00 → M ED INP 06-07 02:00 → UNDODISOB 06-07 11:44
PROVIDERS: ADMIT Hospitalist; ATTEND Family Medicine
DX: I10 Essential (primary) hypertension (principal); D63.8 Anemia in other chronic diseases classified elsewhere; I35.0 Nonrheumatic aortic (valve) stenosis; I50.32 Chronic diastolic (congestive) heart failure; Z95.2 Presence of prosthetic heart valve; Z88.0 Allergy status to penicillin; Z88.2 Allergy status to sulfonamides; Z79.82 Long term (current) use of aspirin; Z79.899 Other long term (current) drug therapy
CPT/HCPCS: 36415; 36430; 71020; 71275; 80048; 82550; 82553; 83880; 84484; 85025; 85027; 85610; 85730; 86850; 86900; 86901; 86920; 93005; 93041; 96360; 96361; 99285; G0378; J1940; P9016; Q9967

== ENCOUNTER → 2016-06-09 | Outpatient (REF) | payer MEDICARE, MEDICAID ==
[~2016-06-09] MED LIST changes: +PROT1TAB2 PO
[2016-06-09 11:13] LABS: MEAN CORPUSCULAR HEMOGLOBIN 25.4 pg (27.0-33.0); MEAN CORPUSCULAR HGB CONC 29.4 g/dl (32.0-36.5); MEAN CORPUSCULAR VOLUME 86.3 fl (80.0-96.0); RED CELL DISTRIBUTION WIDTH 22.7 % (11.5-14.5); WHITE BLOOD COUNT 8.1 K/mm3 (4.0-10.0)
== END ==
LOC: M SFHCPLAZ 09:48
PROVIDERS: ATTEND Physician Assistant Medical
DX: D50.9 Iron deficiency anemia, unspecified (principal)

== ENCOUNTER 2016-06-11 11:33 | Outpatient (CLI) | payer MEDICARE, MEDICAID ==
[~2016-06-11] VITALS: Ht 157.5 cm; Wt 85.0 kg
[2016-06-11] MEDS ORDERED: IRON SUCROSE 25 MG in NS 50 ML IV ONE (12:00)
[2016-06-11] MEDS ORDERED: IRON SUCROSE IV ONE (13:00)
[2016-06-11] MEDS ORDERED: NS IV ONE (13:00)
[2016-06-11] MEDS ORDERED: IRON SUCROSE 200 MG in NS 200 ML IV ONE (13:00)
== END 2016-06-11 15:10 | disposition home or self-care (01) ==
LOC: M INFU 11:33
PROVIDERS: ATTEND Physician Assistant Medical
DX: D50.9 Iron deficiency anemia, unspecified (principal); I50.32 Chronic diastolic (congestive) heart failure; I11.0 Hypertensive heart disease with heart failure; Z88.0 Allergy status to penicillin; Z88.2 Allergy status to sulfonamides; Z88.8 Allergy status to other drugs, medicaments and biological substances
CPT/HCPCS: 96365; 96366; J1756

== ENCOUNTER → 2016-06-16 | Outpatient (REF) | payer MEDICARE, MEDICAID ==
[2016-06-16 12:20] LABS: FOLATE 17.6 NG/ML
[2016-06-16 12:26] LABS: FREE T4 1.11 NG/DL (0.76-1.46)
== END ==
LOC: M SFHCPLAZ 08:09
PROVIDERS: ATTEND Physician Assistant Medical
DX: I50.32 Chronic diastolic (congestive) heart failure (principal); D50.9 Iron deficiency anemia, unspecified; R73.01 Impaired fasting glucose

== ENCOUNTER 2016-06-18 08:57 | Outpatient (CLI) | payer MEDICARE, MEDICAID ==
[~2016-06-18] VITALS: Ht 157.5 cm; Wt 85.0 kg
[2016-06-18] MEDS ORDERED: IRON SUCROSE 175 MG in NS 100 ML IV ONE (10:00)
[2016-06-18] MEDS ORDERED: IRON SUCROSE 25 MG in NS 50 ML IV ONE (10:00)
== END 2016-06-18 12:00 | disposition home or self-care (01) ==
LOC: M INFU 08:57
PROVIDERS: ATTEND Physician Assistant Medical
DX: D50.9 Iron deficiency anemia, unspecified (principal); Z79.82 Long term (current) use of aspirin; Z79.899 Other long term (current) drug therapy; Z88.8 Allergy status to other drugs, medicaments and biological substances; Z88.0 Allergy status to penicillin; Z88.2 Allergy status to sulfonamides
CPT/HCPCS: 96365; 96366; J1756

== ENCOUNTER → 2016-06-25 | Outpatient (REF) | payer MEDICARE, MEDICAID ==
[2016-06-25 13:29] LABS: MEAN CORPUSCULAR HEMOGLOBIN 27.1 pg (27.0-33.0); MEAN CORPUSCULAR HGB CONC 28.6 g/dl (32.0-36.5); MEAN CORPUSCULAR VOLUME 94.6 fl (80.0-96.0); RED CELL DISTRIBUTION WIDTH 20.4 % (11.5-14.5)
== END ==
LOC: M SFHCPLAZ 12:13
PROVIDERS: ATTEND Physician Assistant Medical
DX: D50.9 Iron deficiency anemia, unspecified (principal)

== ENCOUNTER → 2016-06-29 | Outpatient (REF) | payer MEDICARE, MEDICAID ==
[2016-06-29 14:08] LABS: MEAN CORPUSCULAR HEMOGLOBIN 26.3 pg (27.0-33.0); MEAN CORPUSCULAR HGB CONC 28.8 g/dl (32.0-36.5); MEAN CORPUSCULAR VOLUME 91.2 fl (80.0-96.0); RED CELL DISTRIBUTION WIDTH 19.6 % (11.5-14.5); WHITE BLOOD COUNT 5.9 K/mm3 (4.0-10.0)
== END ==
LOC: M SFHCADAM 10:06
PROVIDERS: ATTEND Physician Assistant Medical
DX: D50.9 Iron deficiency anemia, unspecified (principal)

== ENCOUNTER 2016-07-04 10:32 | Outpatient (CLI) | payer MEDICARE, MEDICAID ==
[~2016-07-04] VITALS: Ht 160 cm; Wt 84.1 kg
[2016-07-04 11:40] VITALS: BP 135/60
== END 2016-07-04 19:00 | disposition home or self-care (01) ==
LOC: M OPCLIPED 10:32 → M PED 11:33 → M OPCLIPED 19:00
PROVIDERS: ATTEND Physician Assistant Medical
DX: D50.9 Iron deficiency anemia, unspecified (principal)
CPT/HCPCS: 36415; 36430; 86850; 86900; 86901; 86920; P9016

== ENCOUNTER → 2016-07-31 | Outpatient (REF) | payer MEDICARE, MEDICAID ==
[2016-07-31 13:01] LABS: PERCENT SATURATION 12.9 % (13.2-37.4)
== END ==
LOC: M LAB REF 11:56
PROVIDERS: ATTEND Internal Medicine Medical Oncology
DX: D50.9 Iron deficiency anemia, unspecified (principal)

== ENCOUNTER → 2016-10-22 | Outpatient (REF) | payer MEDICARE, MEDICAID ==
[2016-10-22 17:56] LABS: PERCENT SATURATION 15.4 % (13.2-37.4)
== END ==
LOC: M LAB REF 16:42
PROVIDERS: ATTEND Internal Medicine Medical Oncology
DX: D50.9 Iron deficiency anemia, unspecified (principal)

== ENCOUNTER → 2016-12-23 | Outpatient (REF) | payer MEDICARE, MEDICAID ==
[~2016-12-23] MED LIST changes: -CARA1TAB2 PO; +CARA1TAB6 PO; +FERR1TAB8 PO; -FERR325T PO
[2016-12-23 15:03] LABS: PERCENT SATURATION 20.9 % (13.2-45.0)
== END ==
LOC: M LAB REF 12:56
PROVIDERS: ATTEND Internal Medicine Medical Oncology
DX: D50.9 Iron deficiency anemia, unspecified (principal)

== ENCOUNTER 2017-03-31 18:34 | Inpatient (IN) | payer MEDICAID, MEDICARE ==
[~2017-03-31] VITALS: Ht 157.5 cm; Wt 87.5 kg
[2017-03-31] MEDS ORDERED: OMEP40CA2 PO (18:48)
[2017-03-31] MEDS ORDERED: ASPIRIN 325 MG TAB PO ONE (19:30)
[2017-03-31] MEDS ORDERED: METOPROLOL TART 50 MG TAB PO ONE (19:30)
[2017-03-31 19:35] LABS: BASO % 0.2 % (0.0-1.0); EOS # 0.1 10^3/uL (0.0-0.50); EOS % 0.5 % (0.0-3.0); IMMATURE GRANULOCYTE % 1.9 % (0-0); LYMPH # 2.1 10^3/uL (1.5-4.5); LYMPH % 17.1 % (24.0-44.0); MEAN CORPUSCULAR HEMOGLOBIN 27.9 pg (27.0-33.0); MEAN CORPUSCULAR HGB CONC 30.3 g/dl (32.0-36.5); MEAN CORPUSCULAR VOLUME 92.2 fl (80.0-96.0); MONO # 1.7 10^3/uL (0.0-0.8); MONO % 14.1 % (0.0-5.0); NEUTROPHILS % 66.2 % (36.0-66.0); PLATELET COUNT, AUTOMATED 244 10^3/uL (150-450); RED CELL DISTRIBUTION WIDTH 14.6 % (11.5-14.5)
[2017-03-31] MEDS ORDERED: METOPROLOL TART 25 MG TABLET PO ONE (19:45)
[2017-03-31 19:52] LABS: INR 0.97
[2017-03-31 19:54] LABS: ANION GAP 5 MEQ/L (8-16); BLOOD UREA NITROGEN 17 MG/DL (7-18); CALCIUM LEVEL 9.1 MG/DL (8.8-10.2); CARBON DIOXIDE LEVEL 33 MEQ/L (21-32); CHLORIDE LEVEL 99 MEQ/L (98-107); CREATININE FOR GFR 0.73 MG/DL (0.55-1.02); GLOMERULAR FILTRATION RATE > 60.0 (>45); GLUCOSE, FASTING 153 MG/DL (80-110); POTASSIUM SERUM 3.6 MEQ/L (3.5-5.1); SODIUM LEVEL 137 MEQ/L (136-145)
[2017-03-31] MEDS ORDERED: VITMTA PO (20:25)
[2017-03-31] MEDS ORDERED: K-TA1TAB PO (20:25)
--- NOTE | 2017-03-31 22:12 | HPE ---
DATE OF ADMISSION: 03/31/2017 The patient, Nedra Astudillo, is a 61-year-old female. The patient comes in with a chief complaint of exertional chest pain. The patient notes that over the past couple of days she has been having increasing shortness of breath and chest pain. When she is at rest it does not bother her. However, when she moves around it increases based on parallel exertional effort. Patient had a similar episode like this nearly a year ago, the end of May 2016. At that time, the patient came in and was found to have anemia secondary to blood loss. She received transfusions at the time and her symptoms resolved. At this time, patient comes in also anemic, even more so than last time, however, there are also T wave inversions on EKG. Patient's previous medical history is chronic diastolic congestive heart failure (CHF), hypertension, aortic stenosis with bi-valve replacement, and at one point chronic anemia requiring multi-transfusions. The patient is a nonsmoker, does not drink alcohol or use drugs. Family history of diabetes mellitus and pancreatic cancer. The patient has had a hysterectomy, bilateral salpingo-oophorectomy (BSO), cholecystectomy, section, and bioprosthetic aortic valve replacement. ALLERGIES: The patient is allergic to PENICILLIN and SULFA. On review of systems, patient denies any other acute complaints other than black tarry stools over the past couple of days. Patient's home medications include: - aspirin - furosemide - multivitamins - omeprazole - potassium - spironolactone - sucralfate PHYSICAL EXAMINATION: The patient was sitting comfortably in no acute distress when I came in to see her. Vital signs show a temperature of 99.5, pulse 117, respiratory rate 18, blood pressure 179/73, pulse oximetry 96% on room air. Patient is alert and oriented times three. Cranial nerve (CN) II-XII grossly intact. Patient with grossly normal hearing. Patient able to see in all four quadrants. Neck is supple without any rigidity. Ears, nose, and throat (ENT) normal, no apparent lymphadenopathy. No ashen or grayish look. Nails not overly white. Conjunctivae are not particularly pale. Good inspiratory and expiratory effort. No wheezes, rhonchi, or rales. Very loud murmur, almost holosystolic. Abdomen is soft, nontender to palpation. Strength is 4/4 in all four extremities. No significant edema. Normal affect and normal mood. Skin is warm and dry. LABORATORY EXAM: Shows WBC 12.0, hemoglobin and hematocrit 7.9/26.1, platelet count is 244. Coagulation is within normal limits. Chemistry shows sodium 137, potassium 3.6, chloride 99, carbon dioxide 33, BUN and creatinine 17/0.73, fasting glucose 153, which was not fasting in reality, glomerular filtration rate is greater than 60. First troponin is negative. EKG as noted above, inverted T waves on multiple leads, QRS very large voltage. Large voltage unchanged, new inversion of T waves are changed. Chest x-ray done, official report pending. ASSESSMENT AND PLAN: The patient is a 61-year-old female with a previous medical history as noted above. The patient comes in with chest pain, admitted for symptomatic anemia with EKG changes. EKG changes are indicative of relative ischemia. This may be related to the patient's symptomatic anemia. Nevertheless, continue troponins. Despite possible source and negative first set, it behooves me to make sure there is not an underlying ischemic event with the anemia being a distractor. Anemia. Will hold anticoagulants and antiplatelets for now. Telemetry monitoring. Transfusion of two packed red blood cells (PRBCs) to be given, complete blood count (CBC) to be taken afterwards. Thereafter, the time differential of complete blood count (CBCs) to be decided based on results. Gastroenterology (GI) contacted. Patient to be nothing by mouth pending gastroenterology (GI) evaluation, possible scope. Spoke with gastroenterology (GI) via phone, they are aware of consult. Deep venous thrombosis (DVT) prophylaxis. Intermittent pneumonic compression. Gastrointestinal (GI) prophylaxis. Proton pump inhibitors (PPIs) as per gastroenterology ( GI) recommendations. Continue patient's cardiac medications for now except any antiplatelets. Patient not on anticoagulants at home. Patient first seen 03/31/2017. Given the EKG changes, the necessity for progressive care unit (PCU) followup and gastroenterology (GI) evaluation for symptomatic anemia with positive findings for gastrointestinal (GI) bleed, I expect admission to be greater than two midnights.
[2017-04-01] MEDS ORDERED: PANTOPRAZOLE 40MG TAB (PROTONIX) PO STA (05:09)
[2017-04-01 07:47] LABS: BASO % 0.2 % (0.0-1.0); EOS # 0.1 10^3/uL (0.0-0.50); EOS % 0.6 % (0.0-3.0); IMMATURE GRANULOCYTE % 1.5 % (0-0); LYMPH # 1.8 10^3/uL (1.5-4.5); LYMPH % 18.5 % (24.0-44.0); MEAN CORPUSCULAR HEMOGLOBIN 27.9 pg (27.0-33.0); MEAN CORPUSCULAR HGB CONC 31.8 g/dl (32.0-36.5); MEAN CORPUSCULAR VOLUME 87.8 fl (80.0-96.0); MONO # 1.5 10^3/uL (0.0-0.8); NEUTROPHILS # 6.1 10^3/uL (1.8-7.7); NEUTROPHILS % 63.2 % (36.0-66.0); PLATELET COUNT, AUTOMATED 202 10^3/uL (150-450); RED CELL DISTRIBUTION WIDTH 15.7 % (11.5-14.5); WHITE BLOOD COUNT 9.6 10^3/uL (4.0-10.0)
[2017-04-01 08:00] LABS: ANION GAP 4 MEQ/L (8-16); BLOOD UREA NITROGEN 19 MG/DL (7-18); CALCIUM LEVEL 8.5 MG/DL (8.8-10.2); CARBON DIOXIDE LEVEL 33 MEQ/L (21-32); CHLORIDE LEVEL 103 MEQ/L (98-107); CREATININE FOR GFR 0.63 MG/DL (0.55-1.02); GLOMERULAR FILTRATION RATE > 60.0 (>45); GLUCOSE, FASTING 139 MG/DL (80-110); POTASSIUM SERUM 3.6 MEQ/L (3.5-5.1); SODIUM LEVEL 140 MEQ/L (136-145)
[2017-04-01] MEDS: POTASSIUM CHLORIDE 10 MEQ SR TABLET PO SCH (08:34)
[2017-04-01] MEDS: MULTIVITAMINS/MINERALS THERAP 1 TAB PO SCH (08:34)
[2017-04-01] MEDS: OMEPRAZOLE 20 MG CAP PO SCH (08:34)
[2017-04-01] MEDS: SUCRALFATE 1 GM TAB PO SCH (08:34)
[2017-04-01] MEDS ORDERED: D5W/0.9% SODIUM CHLORIDE 1,000 ML IV SCH (10:15)
[2017-04-01 12:40] VITALS: BP 116/61
[2017-04-01 15:13] VITALS: BP 112/62
--- NOTE | 2017-04-01 15:32 | IPNPDOC ---
Subjective Date Seen The patient was seen on 04/01/17. Subjective Chief Complaint/HPI The patient is a 61-year-old female admitted with a reason for visit of Symptomatic Anemia. Events since last encounter Patient is a states that she is feeling fine. She is currently not noticing any weakness. The chest pain that she was having earlier has resolved after receiving blood. She is continuing to complain of a little abdominal pain. She did have some chills last night. She is also reporting that prior to admission she was having dark stool. ENT: Denies: Other Symptoms (dizziness, lightheadedness) Pulmonary: Denies: Dyspnea Cardiovascular: Denies: Chest Pain Gastrointestinal: Reports: Abdominal Pain Objective Physical Examination General Exam: Positive: Alert, No Acute Distress Chest Exam: Positive: Normal air movement, Rales (faint bibasilar), Negative: Rhonchi, Wheezing Heart Exam: Positive: Rate Normal, Regular Rhythm, Normal S1, Normal S2, Murmurs (3/6 systolic murmur best heard at right sternal border), Negative: Gallops, Rubs Abdomen Exam: Positive: Normal bowel sounds, Soft, Negative: Tenderness, Hepatospenomegaly, Mass Extremity Exam: Positive: Edema (bilateral to level of knee) Assessment /Plan Problems (1) Gastrointestinal hemorrhage Status: Acute Problem Text: 04/01: Patient with positive Hemoccult in emergency department. Hemoglobin has been stable this morning, continue every 6 hours hemoglobin and hematocrit. Gastroenterology has been consulted and will see the patient. (2) Symptomatic anemia Status: Acute Problem Text: 04/01: Improving, patient is no longer complaining of chest pain. Continue to monitor hemoglobin and hematocrit every 6 hours (3) Hypotension Problem Text: 04/01: Patient was hypotensive earlier today, blood pressure 95/ 62, she was started on D5 normal saline at rate of 50 per hour. Since that time her blood pressure has risen to 112/62. Due to her history of heart failure we will discontinue fluids as to not cause her fluid overload and we will continue to monitor. (4) Diastolic congestive heart failure Status: Chronic Problem Text: 04/01: Stable, continue to monitor (5) GERD (gastroesophageal reflux disease) Status: Chronic Problem Text: 04/01: Stable, continue omeprazole 40 mg daily Plan/VTE VTE Prophylaxis Ordered?: Yes Plan Diet: Continue Current (nothing by mouth) VS, I&O, 24H, [facility] Vital Signs/I&O Vital Signs Date Time Temp Pulse Resp B/P (MAP) Pulse Ox O2 Delivery O2 Flow Rate FiO2 04/01/17 15:13 112/62 (79) 04/01/17 12:40 99.3 85 18 96 Room Air 03/31/17 20:05 2.0 I&O- Last 24 Hours up to 6 AM 04/02/17 06:00 Intake Total 770 ml Output Total 500 ml Balance 270 ml Laboratory Data 24H LABS Laboratory Tests 2 03/31/17 19:20: Immature Granulocyte % (Auto) 1.9H, White Blood Count 12.0H, Red Blood Count 2.83L, Hemoglobin 7.9L, Hematocrit 26.1L, Mean Corpuscular Volume 92.2, Mean Corpuscular Hemoglobin 27.9, Mean Corpuscular Hemoglobin Concent 30.3L, Red Cell Distribution Width 14.6H, Platelet Count 244, Neutrophils (%) (Auto) 66.2H , Lymphocytes (%) (Auto) 17.1L, Monocytes (%) (Auto) 14.1H, Eosinophils (%) ( Auto) 0.5, Basophils (%) (Auto) 0.2, Neutrophils # (Auto) 8.0H, Lymphocytes # ( Auto) 2.1, Monocytes # (Auto) 1.7H, Eosinophils # (Auto) 0.1, Basophils # (Auto ) 0.0, Immature Granulocyte # (Auto) 0.2H, Nucleated Red Blood Cells % (auto) 0.7H, Prothrombin Time 13.0, Prothromb Time International Ratio 0.97, Activated Partial Thromboplast Time 28.1, Anion Gap 5L, Glomerular Filtration Rate > 60.0 , Blood Urea Nitrogen 17, Creatinine 0.73, Sodium Level 137, Potassium Level 3.6 , Chloride Level 99, Carbon Dioxide Level 33H, Calcium Level 9.1, Total Creatine Kinase 126, Creatine Kinase MB 1.5, Creatine Kinase MB Relative Index 1.19, Troponin I < 0.02 04/01/17 03:15: Total Creatine Kinase 97, Creatine Kinase MB 1.6, Creatine Kinase MB Relative Index 1.64, Troponin I < 0.02 04/01/17 07:35: Immature Granulocyte % (Auto) 1.5H, White Blood Count 9.6, Red Blood Count 3.37L , Hemoglobin 9.4L, Hematocrit 29.6L, Mean Corpuscular Volume 87.8, Mean Corpuscular Hemoglobin 27.9, Mean Corpuscular Hemoglobin Concent 31.8L, Red Cell Distribution Width 15.7H, Platelet Count 202, Neutrophils (%) (Auto) 63.2, Lymphocytes (%) (Auto) 18.5L, Monocytes (%) (Auto) 16.0H, Eosinophils (%) (Auto ) 0.6, Basophils (%) (Auto) 0.2, Neutrophils # (Auto) 6.1, Lymphocytes # (Auto) 1.8, Monocytes # (Auto) 1.5H, Eosinophils # (Auto) 0.1, Basophils # (Auto) 0.0, Immature Granulocyte # (Auto) 0.1H, Nucleated Red Blood Cells % (auto) 0.6H, Anion Gap 4L, Glomerular Filtration Rate > 60.0, Blood Urea Nitrogen 19H, Creatinine 0.63, Sodium Level 140, Potassium Level 3.6, Chloride Level 103, Carbon Dioxide Level 33H, Calcium Level 8.5L 04/01/17 11:16: Total Creatine Kinase 86, Creatine Kinase MB 1.4, Creatine Kinase MB Relative Index 1.62, Troponin I 0.02 CBC/BMP Laboratory Tests 03/31/17 19:20 Red Blood Count 2.83 L, Mean Corpuscular Volume 92.2, Mean Corpuscular Hemoglobin 27.9, Mean Corpuscular Hemoglobin Concent 30.3 L, Red Cell Distribution Width 14.6 H, Neutrophils (%) (Auto) 66.2 H, Lymphocytes (%) (Auto ) 17.1 L, Monocytes (%) (Auto) 14.1 H, Eosinophils (%) (Auto) 0.5, Basophils (% ) (Auto) 0.2, Neutrophils # (Auto) 8.0 H, Lymphocytes # (Auto) 2.1, Monocytes # (Auto) 1.7 H, Eosinophils # (Auto) 0.1, Basophils # (Auto) 0.0, Calcium Level 9.1, Total Creatine Kinase 126 04/01/17 07:35 Red Blood Count 3.37 L, Mean Corpuscular Volume 87.8, Mean Corpuscular Hemoglobin 27.9, Mean Corpuscular Hemoglobin Concent 31.8 L, Red Cell Distribution Width 15.7 H, Neutrophils (%) (Auto) 63.2, Lymphocytes (%) (Auto) 18.5 L, Monocytes (%) (Auto) 16.0 H, Eosinophils (%) (Auto) 0.6, Basophils (%) ( Auto) 0.2, Neutrophils # (Auto) 6.1, Lymphocytes # (Auto) 1.8, Monocytes # (Auto ) 1.5 H, Eosinophils # (Auto) 0.1, Basophils # (Auto) 0.0, Calcium Level 8.5 L 04/01/17 09:07 04/01/17 14:16 GME ATTESTATION GME ATTESTATION My faculty preceptor for this patient encounter was physically present during the encounter and was fully available. All aspects of the patient interview, examination, medical decision making process, and medical care plan development were reviewed and approved by the faculty preceptor. The faculty preceptor is aware and concurs with the plan as stated in the body of this note and will attest to such by his/her cosignature. ATTENDING NOTE I saw Ms. Astudillo this morning; I discussed her care with Dr. Terrazas this morning and I agree with his note as documented. The patient's chest pain had resolved this morning after she received 2 units of pRBCs. H/H has been stable since receiving pRBCs. We will recheck one additional H/H this evening and if it is stable, we will change to daily CBCs starting tomorrow morning. She did receive some gentle IV hydration earlier today but then was noted by Dr. Terrazas to have some bibasilar crackles on exam, so IVF was stopped. She does have a history of CHF though did not appear volume overloaded when I saw her this morning. We will communicate with the nurses and give fluids as tolerated while she remains NPO. (KES) TERESA TERRAZAS DO Apr 01, 2017 15:32 ILIA CHU MD Apr 01, 2017 16:33
[2017-04-01] MEDS ORDERED: SLF 3 ML SYR IV PRN (15:45)
[2017-04-01 16:00] VITALS: BP 112/63
[2017-04-01 20:00] VITALS: BP 128/88
[2017-04-01] MEDS: SLF 3 ML SYR IV SCH (21:05)
[2017-04-02] VITALS: BP 101/53
[2017-04-02 04:00] VITALS: BP 108/61
[2017-04-02] MEDS: SLF 3 ML SYR IV SCH ×3 (05:13→21:24)
[2017-04-02 05:24] LABS: BASO % 0.3 % (0.0-1.0); EOS # 0.1 10^3/uL (0.0-0.50); EOS % 0.8 % (0.0-3.0); IMMATURE GRANULOCYTE % 1.3 % (0-0); LYMPH # 1.2 10^3/uL (1.5-4.5); LYMPH % 16.2 % (24.0-44.0); MEAN CORPUSCULAR HEMOGLOBIN 26.9 pg (27.0-33.0); MEAN CORPUSCULAR HGB CONC 30.9 g/dl (32.0-36.5); MEAN CORPUSCULAR VOLUME 87.1 fl (80.0-96.0); MONO # 1.3 10^3/uL (0.0-0.8); MONO % 18.3 % (0.0-5.0); NEUTROPHILS # 4.5 10^3/uL (1.8-7.7); NEUTROPHILS % 63.1 % (36.0-66.0); PLATELET COUNT, AUTOMATED 196 10^3/uL (150-450); RED CELL DISTRIBUTION WIDTH 16.2 % (11.5-14.5); WHITE BLOOD COUNT 7.2 10^3/uL (4.0-10.0)
[2017-04-02 05:47] LABS: ANION GAP 6 MEQ/L (8-16); BLOOD UREA NITROGEN 19 MG/DL (7-18); CARBON DIOXIDE LEVEL 31 MEQ/L (21-32); CHLORIDE LEVEL 104 MEQ/L (98-107); CREATININE FOR GFR 0.67 MG/DL (0.55-1.02); GLOMERULAR FILTRATION RATE > 60.0 (>45); GLUCOSE, FASTING 152 MG/DL (80-110); SODIUM LEVEL 141 MEQ/L (136-145)
--- NOTE | 2017-04-02 06:03 | ECGEPIP ---
Stationary ECG Study [facility] - ED Test Date: 2017-03-31 Pat Name: GHADA GARNICA Department: Room: [place] [address] Gender: F Academic Affairs Dean: ALEXANDER : 1955 Requested By: Melvin Boss Order Number: [id number] Reading MD: Melvin Tello Measurements Intervals [place] Rate: 111 P: 53 WV: 161 QRS: 62 QRSD: 90 T: 233 QT: 330 QTc: 449 Interpretive Statements SINUS TACHYCARDIA LEFT VENTRICULAR HYPERTROPHY AND ST-T CHANGES, INCREASED FROM 06/06/16 Electronically Signed On 04-02-2017 6:03:21 EST by Melvin Tello
[2017-04-02 08:04] VITALS: BP 126/60
[2017-04-02] MEDS: OMEPRAZOLE 20 MG CAP PO SCH (09:33)
[2017-04-02] MEDS: MULTIVITAMINS/MINERALS THERAP 1 TAB PO SCH (09:33)
[2017-04-02] MEDS: POTASSIUM CHLORIDE 10 MEQ SR TABLET PO SCH (09:33)
[2017-04-02] MEDS: MIRALAX *UNIT DOSE* 17GM PACKET PO SCH (09:33)
--- NOTE | 2017-04-02 09:38 | CR.PDOC ---
[facility] Consultation Consultation DATE OF CONSULTATION: Apr 01, 2017 at 15:34 ( respective note - patient examined yesterday). Primary physician/ hospitalist: Dr. Terrazas Reason for consult: Anemia HPI: 61 year old woman with Diastolic CHF, HTN, Aortic stenosis and s/p bioprosthetic [place] replacement, chronic anemia, requiring multiple transfusions in past, s/p EGD and Colonoscopy ( in [address] Zafar) and capsule enteroscopy in [place] non diagnostic as per patient, presented to ER for complaints of shortness of breath and severe fatigue. Labs noted slight decrese in Hb.HCT from her baseline and GI consulted for the same. Patient reports that these symptoms were always present but recently over the last few days got worse. Patient denies any overt external bleeding any time, but notices dark colored but formed stools and sometimes even hard stools. Patient also reports epigastric abdominal pain which is ongoing for few days. Pertinent negative GI symptoms: Patient denies nausea, vomiting, diarrhea, loss of appetite, early satiety or unintentional weight loss. No history of hematemesis, melena or hematochezia. Review of Systems: GI: as stated above CVS: No chest pain, No palpitations, No leg swelling. 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 Skin: No rash : No hematuria, No burning sensation of the urine ENT: No ear discharge/ pain, No dysphagia. Eyes: No photophobia. Home medications: reviewed. Antithrombotic agents - none Medical h/o: As above. Surgical h/o: None on abdomen. Social h/o: Denies Alcohol, smoking, IVDA/ drugs . Family h/o of GI cancers - None Prior Endoscopies: - done by Dr. Zafar. --- EGD Normal. --- Colonoscopy diverticulosis. Prior GI evaluation: Previously seen Dr. Wang. Exam: Vitals: reviewed General: Alert and oriented x 3, not in distress HEENT: NO pallor, no icterus. Normal oropharynx, NO cervical lymph nodes. Chest: symmetric with bilateral clear air entry, CVS: S1, S2 heard, normal, no murmurs . Abdomen: non-distended, no surgical scars, soft, reports mild epigastric tenderness, no palpable masses, normal bowel sounds heard. Rectal exam: dark formed hard stools. No melena. Extremities: no pedal edema, pulses palpable. 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 Moves all extremities Skin: no rash. Labs: reviewed. Imaging: reviewed Impression: - Acute anemia with h/o bioprosthetic aortic valve replacement in past DDx- Small bowel AVMs ( likely hydes syndrome) vs PUD vs hemolytic anemia. No Overt active GI bleeding. - Epigastric abdominal pain with normal EGD In past needs re- evaluation in view of the new onset of symptoms. Recommendations: - Patient educated about the test results, possible differential diagnoses and All questions answered. - Continue PPI for now. - Obtain LDH, Peripheral smear, Haptoglobin level - Will schedule for elective EGD and push enteroscopy on Wednesday. - NPO after midnight on Wednesday. - The procedure, indications, risks (bleeding, perforation, infection, hypotension, respiratory depression, allergy, need for endotracheal intubation, surgery, colostomy, cardiac arrest, even ), benefits, limitations (e.g., missing a lesion), and all other alternatives (including no intervention) were explained to the patient who understood and agreed for the procedure. Plan of care discussed with patient and primary team. Patient verbalized understanding and agreed with the plan. Allergies Coded Allergies: Sulfa Drugs (Verified Adverse Reaction, Intermediate, UPSET STOMACH, ) Sulfamethoxazole (Verified Adverse Reaction, Intermediate, UPSET STOMACH, 08/10/12) Trimethoprim (Verified Adverse Reaction, Intermediate, UPSET STOMACH, ) Penicillins (Verified Adverse Reaction, Mild, UPSET STOMACH, 08/10/12) NAUSEA Home Medications Scheduled Aspirin (Aspirin 81) 81 Mg Tab, 81 MG PO DAILY, (Reported) Furosemide (Furosemide) 40 Mg Tab, 60 MG PO DAILY, (Reported) Multivitamins *[facility] STOCKED* (Thera M Plus *[facility] STOCKED*) 1 Tab Tab, 1 TAB PO DAILY, (Reported) Omeprazole (Omeprazole) 40 Mg Cap, 40 MG PO DAILY, (Reported) Potassium Chloride (K-Tab) 20 Meq Tab, 20 MEQ PO DAILY, (Reported) Spironolactone (Spironolactone) 25 Mg Tab, 25 MG PO DAILY, (Reported) Sucralfate (Carafate) 1 Gm Tab, 1 GM PO DAILY, (Reported) SARKIS SPIVEY MD Apr 02, 2017 09:38
[2017-04-02 11:35] LABS: MEAN CORPUSCULAR HEMOGLOBIN 27.1 pg (27.0-33.0); MEAN CORPUSCULAR HGB CONC 30.7 g/dl (32.0-36.5); MEAN CORPUSCULAR VOLUME 88.3 fl (80.0-96.0); PLATELET COUNT, AUTOMATED 211 10^3/uL (150-450); RED CELL DISTRIBUTION WIDTH 15.9 % (11.5-14.5); WHITE BLOOD COUNT 7.1 10^3/uL (4.0-10.0)
[2017-04-02] MEDS: SUCRALFATE 1 GM TAB PO SCH (11:47)
[2017-04-02 12:04] VITALS: BP 108/55
--- NOTE | 2017-04-02 13:32 | IPNPDOC ---
Subjective Date Seen The patient was seen on 04/02/17. Subjective Chief Complaint/HPI The patient is a 61-year-old female admitted with a reason for visit of Symptomatic Anemia. Events since last encounter Patient states she is doing good today. She mentions that she is feeling stronger and is asking if she could be able to walk today. She does report continued dark bowel movements. She denies any dizziness, lightheadedness. Constitutional: Denies: Chills, Fever Pulmonary: Denies: Dyspnea Cardiovascular: Denies: Chest Pain Objective Physical Examination General Exam: Positive: Alert, No Acute Distress Chest Exam: Positive: Normal air movement, Negative: Rales, Rhonchi, Wheezing Heart Exam: Positive: Rate Normal, Regular Rhythm, Normal S1, Normal S2, Murmurs (3/6 systolic murmur best heard at right sternal border), Negative: Gallops, Rubs Telemetry: Positive: Sinus Abdomen Exam: Positive: Normal bowel sounds, Soft, Tenderness (epigastric tenderness without rebound), Negative: Hepatospenomegaly, Mass Extremity Exam: Positive: Edema (bilateral to below-knee) Assessment /Plan Problems (1) Gastrointestinal hemorrhage Status: Acute Problem Text: 04/02: Patient seen by gastroenterology, currently planning for endoscopy next Wednesday. Hemoglobin had dropped to 8.3 this morning, a repeat CBC was placed for later this morning, repeat level came back at 8.8. Continue to monitor with CBC tomorrow morning 04/01: Patient with positive Hemoccult in emergency department. Hemoglobin has been stable this morning, continue every 6 hours hemoglobin and hematocrit. Gastroenterology has been consulted and will see the patient. (2) Acute blood loss anemia Permanent Comment: Secondary to GI bleed Last Edited By: Teresa Terrazas DO on Apr 02, 2017 13:27 Problem Text: 04/02: hemoglobin had dropped to 8.3 this morning, a repeat CBC was placed for later this morning, repeat level came back at 8.8. Continue to monitor with CBC tomorrow morning (3) Symptomatic anemia Status: Acute Problem Text: 04/02: See acute blood loss anemia 04/01: Improving, patient is no longer complaining of chest pain. Continue to monitor hemoglobin and hematocrit every 6 hours (4) Hypotension Problem Text: 04/02: Blood pressure stable between 101-126/55-61 since midnight 04/01: Patient was hypotensive earlier today, blood pressure 95/62, she was started on D5 normal saline at rate of 50 per hour. Since that time her blood pressure has risen to 112/62. Due to her history of heart failure we will discontinue fluids as to not cause her fluid overload and we will continue to monitor. (5) Diastolic congestive heart failure Status: Chronic Problem Text: 04/01: Stable, continue to monitor (6) GERD (gastroesophageal reflux disease) Status: Chronic Problem Text: 04/01: Stable, continue omeprazole 40 mg daily Plan/VTE VTE Prophylaxis Ordered?: Yes Plan Diet: Advance (advanced to regular diet yesterday evening by gastroenterology) Patient was seen and examined by myself and her care was reviewed with the resident physician on service VS, I&O, [facility] Vital Signs/I&O Vital Signs Date Time Temp Pulse Resp B/P (MAP) Pulse Ox O2 Delivery O2 Flow Rate FiO2 04/02/17 12:04 97.7 94 20 108/55 (72) 97 Room Air 03/31/17 20:05 2.0 I&O- Last 24 Hours up to 6 AM 04/03/17 06:00 Intake Total 480 ml Balance 480 ml Laboratory Data 24H LABS Laboratory Tests 2 04/02/17 04:43: Immature Granulocyte % (Auto) 1.3H, White Blood Count 7.2, Red Blood Count 3.09L , Hemoglobin 8.3L, Hematocrit 26.9L, Mean Corpuscular Volume 87.1, Mean Corpuscular Hemoglobin 26.9L, Mean Corpuscular Hemoglobin Concent 30.9L, Red Cell Distribution Width 16.2H, Platelet Count 196, Neutrophils (%) (Auto) 63.1, Lymphocytes (%) (Auto) 16.2L, Monocytes (%) (Auto) 18.3H, Eosinophils (%) (Auto ) 0.8, Basophils (%) (Auto) 0.3, Neutrophils # (Auto) 4.5, Lymphocytes # (Auto) 1.2L, Monocytes # (Auto) 1.3H, Eosinophils # (Auto) 0.1, Basophils # (Auto) 0.0 , Immature Granulocyte # (Auto) 0.1H, Nucleated Red Blood Cells % (auto) 0.6H, Anion Gap 6L, Glomerular Filtration Rate > 60.0, Blood Urea Nitrogen 19H, Creatinine 0.67, Sodium Level 141, Potassium Level 4.0, Chloride Level 104, Carbon Dioxide Level 31, Calcium Level 8.0L 04/02/17 11:02: Nucleated Red Blood Cells % (auto) 0.4H CBC/BMP Laboratory Tests 04/01/17 14:16 04/02/17 04:43 Red Blood Count 3.09 L, Mean Corpuscular Volume 87.1, Mean Corpuscular Hemoglobin 26.9 L, Mean Corpuscular Hemoglobin Concent 30.9 L, Red Cell Distribution Width 16.2 H, Neutrophils (%) (Auto) 63.1, Lymphocytes (%) (Auto) 16.2 L, Monocytes (%) (Auto) 18.3 H, Eosinophils (%) (Auto) 0.8, Basophils (%) ( Auto) 0.3, Neutrophils # (Auto) 4.5, Lymphocytes # (Auto) 1.2 L, Monocytes # ( Auto) 1.3 H, Eosinophils # (Auto) 0.1, Basophils # (Auto) 0.0, Calcium Level 8.0 L 04/02/17 11:02 Red Blood Count 3.25 L, Mean Corpuscular Volume 88.3, Mean Corpuscular Hemoglobin 27.1, Mean Corpuscular Hemoglobin Concent 30.7 L, Red Cell Distribution Width 15.9 H TERESA TERRAZAS DO Apr 02, 2017 13:32 Tyrone Keane M.D. Apr 02, 2017 16:44
[2017-04-02 16:11] VITALS: BP 137/63
[2017-04-02 20:00] VITALS: BP 142/71
[2017-04-03] VITALS (7 sets, daily range): BP systolic 107–146; BP diastolic 55–69
[2017-04-03] MEDS: SLF 3 ML SYR IV SCH ×3 (05:23→21:41)
[2017-04-03 05:27] LABS: BASO % 0.1 % (0.0-1.0); EOS # 0.1 10^3/uL (0.0-0.50); EOS % 1.3 % (0.0-3.0); IMMATURE GRANULOCYTE % 1.2 % (0-0); LYMPH # 1.9 10^3/uL (1.5-4.5); LYMPH % 25.7 % (24.0-44.0); MEAN CORPUSCULAR HEMOGLOBIN 26.6 pg (27.0-33.0); MEAN CORPUSCULAR HGB CONC 30.5 g/dl (32.0-36.5); MEAN CORPUSCULAR VOLUME 87.2 fl (80.0-96.0); MONO # 1.5 10^3/uL (0.0-0.8); MONO % 19.5 % (0.0-5.0); NEUTROPHILS # 3.9 10^3/uL (1.8-7.7); NEUTROPHILS % 52.2 % (36.0-66.0); PLATELET COUNT, AUTOMATED 218 10^3/uL (150-450); RED CELL DISTRIBUTION WIDTH 15.5 % (11.5-14.5); WHITE BLOOD COUNT 7.4 10^3/uL (4.0-10.0)
[2017-04-03 05:43] LABS: ANION GAP 4 MEQ/L (8-16); BLOOD UREA NITROGEN 19 MG/DL (7-18); CALCIUM LEVEL 8.4 MG/DL (8.8-10.2); CARBON DIOXIDE LEVEL 31 MEQ/L (21-32); CHLORIDE LEVEL 104 MEQ/L (98-107); CREATININE FOR GFR 0.63 MG/DL (0.55-1.02); GLOMERULAR FILTRATION RATE > 60.0 (>45); GLUCOSE, FASTING 160 MG/DL (80-110); POTASSIUM SERUM 4.2 MEQ/L (3.5-5.1); SODIUM LEVEL 139 MEQ/L (136-145)
[2017-04-03] MEDS: SUCRALFATE 1 GM TAB PO SCH (08:40)
[2017-04-03] MEDS: MULTIVITAMINS/MINERALS THERAP 1 TAB PO SCH (08:40)
[2017-04-03] MEDS: POTASSIUM CHLORIDE 10 MEQ SR TABLET PO SCH (08:40)
[2017-04-03] MEDS: OMEPRAZOLE 20 MG CAP PO SCH (08:41)
[2017-04-03] MEDS: MIRALAX *UNIT DOSE* 17GM PACKET PO SCH (08:41)
[2017-04-03] MEDS ORDERED: PREPARATION H OINTMENT (HEMORRHOID) PR PRN (10:00)
[2017-04-03 13:46] LABS: FERRITIN 10 NG/ML (8-252); PERCENT SATURATION 5.3 % (13.2-45.0); TOTAL IRON BINDING CAPACITY 374 UG/DL (250-450)
[2017-04-03] MEDS ORDERED: GASTROGRAFIN SOLUTION 30ML (Q9963) PO ONE (14:00)
[2017-04-03] MEDS ORDERED: GASTROGRAFIN SOLUTION 30ML PO ONE (14:30)
--- NOTE | 2017-04-03 14:43 | IPNPDOC ---
Subjective Date Seen The patient was seen on 04/03/17. Subjective Chief Complaint/HPI The patient is a 61-year-old female admitted with a reason for visit of Symptomatic Anemia. Events since last encounter Patient states that she has been doing good, she reports that she has been up walking around she has not had any problems walking. Constitutional: Denies: Chills, Fever ENT: Denies: Other Symptoms (dizziness or lightheadedness with walking) Pulmonary: Denies: Dyspnea Cardiovascular: Denies: Chest Pain (with walking) Gastrointestinal: Reports: Abdominal Pain Objective Physical Examination General Exam: Positive: Alert, No Acute Distress Chest Exam: Positive: Clear to auscultation, Normal air movement, Negative: Rales, Rhonchi, Wheezing Heart Exam: Positive: Rate Normal, Regular Rhythm, Normal S1, Normal S2, Murmurs (3/6 systolic murmur best heard at right sternal border), Negative: Gallops, Rubs Telemetry: Positive: Sinus Abdomen Exam: Positive: Normal bowel sounds, Soft, Tenderness (epigastric tenderness without rebound), Negative: Hepatospenomegaly, Mass Extremity Exam: Positive: Edema (bilateral to below-knee) Assessment /Plan Problems (1) Gastrointestinal hemorrhage Status: Acute Problem Text: 04/03: Patient with continued pain, she will have further evaluation with CT of her abdomen and pelvis, H pylori antigen. Scheduled to have endoscopy on Monday 04/02: Patient seen by gastroenterology, currently planning for endoscopy next Wednesday. Hemoglobin had dropped to 8.3 this morning, a repeat CBC was placed for later this morning, repeat level came back at 8.8. Continue to monitor with CBC tomorrow morning 04/01: Patient with positive Hemoccult in emergency department. Hemoglobin has been stable this morning, continue every 6 hours hemoglobin and hematocrit. Gastroenterology has been consulted and will see the patient. (2) Acute blood loss anemia Permanent Comment: Secondary to GI bleed Last Edited By: Teresa Terrazas DO on Apr 02, 2017 13:27 Problem Text: 04/03: Stable, patient will be further evaluated with TIBC, ferritin, vitamin B12, RBC folate 04/02: hemoglobin had dropped to 8.3 this morning, a repeat CBC was placed for later this morning, repeat level came back at 8.8. Continue to monitor with CBC tomorrow morning (3) Symptomatic anemia Status: Acute Problem Text: 04/02: See acute blood loss anemia 04/01: Improving, patient is no longer complaining of chest pain. Continue to monitor hemoglobin and hematocrit every 6 hours (4) Hypotension Problem Text: 04/02: Blood pressure stable between 101-126/55-61 since midnight 04/01: Patient was hypotensive earlier today, blood pressure 95/62, she was started on D5 normal saline at rate of 50 per hour. Since that time her blood pressure has risen to 112/62. Due to her history of heart failure we will discontinue fluids as to not cause her fluid overload and we will continue to monitor. (5) Diastolic congestive heart failure Status: Chronic Problem Text: 04/01: Stable, continue to monitor (6) GERD (gastroesophageal reflux disease) Status: Chronic Problem Text: 04/03: Patient to be further evaluated with H pylori antigen 04/01: Stable, continue omeprazole 40 mg daily Plan/VTE VTE Prophylaxis Ordered?: Yes Plan Diet: Advance (advanced to regular diet yesterday evening by gastroenterology) VS, [facility]&O[facility] Vital Signs/I&O Vital Signs Date Time Temp Pulse Resp B/P (MAP) Pulse Ox O2 Delivery O2 Flow Rate FiO2 04/03/17 11:43 97.2 98 18 107/55 (72) 97 Room Air 03/31/17 20:05 2.0 I&O- Last 24 Hours up to 6 AM 04/04/17 06:00 Intake Total 300 ml Balance 300 ml Laboratory Data 24H LABS Laboratory Tests 2 04/03/17 04:35: 04/03/17 04:37: Immature Granulocyte % (Auto) 1.2H, White Blood Count 7.4, Red Blood Count 3.27L , Hemoglobin 8.7L, Hematocrit 28.5L, Mean Corpuscular Volume 87.2, Mean Corpuscular Hemoglobin 26.6L, Mean Corpuscular Hemoglobin Concent 30.5L, Red Cell Distribution Width 15.5H, Platelet Count 218, Neutrophils (%) (Auto) 52.2, Lymphocytes (%) (Auto) 25.7, Monocytes (%) (Auto) 19.5H, Eosinophils (%) (Auto) 1.3, Basophils (%) (Auto) 0.1, Neutrophils # (Auto) 3.9, Lymphocytes # (Auto) 1.9, Monocytes # (Auto) 1.5H, Eosinophils # (Auto) 0.1, Basophils # (Auto) 0.0, Immature Granulocyte # (Auto) 0.1H, Nucleated Red Blood Cells % (auto) 0.4H, Anion Gap 4L, Glomerular Filtration Rate > 60.0, Blood Urea Nitrogen 19H, Creatinine 0.63, Sodium Level 139, Potassium Level 4.2, Chloride Level 104, Carbon Dioxide Level 31, Calcium Level 8.4L, Iron Level 20L, Total Iron Binding Capacity 374, Transferrin % Saturation 5.3L, Ferritin 10 CBC/BMP Laboratory Tests 04/03/17 04:35 04/03/17 04:37 Red Blood Count 3.27 L, Mean Corpuscular Volume 87.2, Mean Corpuscular Hemoglobin 26.6 L, Mean Corpuscular Hemoglobin Concent 30.5 L, Red Cell Distribution Width 15.5 H, Neutrophils (%) (Auto) 52.2, Lymphocytes (%) (Auto) 25.7, Monocytes (%) (Auto) 19.5 H, Eosinophils (%) (Auto) 1.3, Basophils (%) ( Auto) 0.1, Neutrophils # (Auto) 3.9, Lymphocytes # (Auto) 1.9, Monocytes # (Auto ) 1.5 H, Eosinophils # (Auto) 0.1, Basophils # (Auto) 0.0, Calcium Level 8.4 L GME ATTESTATION GME ATTESTATION My faculty preceptor for this patient encounter was physically present during the encounter and was fully available. All aspects of the patient interview, examination, medical decision making process, and medical care plan development were reviewed and approved by the faculty preceptor. The faculty preceptor is aware and concurs with the plan as stated in the body of this note and will attest to such by his/her cosignature. TERESA TERRAZAS DO Apr 03, 2017 14:43
[2017-04-03] MEDS ORDERED: ISOVUE-370 76% 100ML VIAL (Q9967) As Ordered ONE (15:14)
--- NOTE | 2017-04-03 16:33 | REP ---
Clinical: Abdominal pain with GI bleeding. Technique: Axial contrast enhanced images from the lung bases to the pubic symphysis using oral (per protocol) and 100 ml Isovue 370 intravenous contrast material with coronal and sagittal re-formations. Comparison: 12/07/2011. Findings: Lung bases demonstrate mild right middle lobe right lower lobe and left lower lobe atelectasis. Visualized portions of the heart and pericardium are normal; evidence of prior aortic valve repair. Fatty infiltration to the liver noted without focal hepatic lesion. Prior cholecystectomy. Spleen, pancreas, bilateral adrenal glands and kidneys are normal. The enteric system is without obstruction or acute inflammatory process. Normal terminal ileum and appendix are identified in the right lower quadrant. Colonic and sigmoid diverticula noted without acute diverticulitis. Pelvis demonstrates collapsed normal bladder and evidence for prior hysterectomy. Small fat containing left inguinal hernia. No ascites. No free air. No adenopathy. Abdominal aorta and vasculature without aneurysm or dissection. Musculoskeletal structures are intact without focal osseous abnormality. Impression: 1. Mild right middle lobe, right lower lobe and left lower lobe atelectasis. 2. No acute abdominopelvic pathology appreciated. 3. Sigmoid diverticula without acute diverticulitis. 4. Fat containing left inguinal hernia. Signed by Oviido Esquivel MD 04/03/2017 04:24 P
[2017-04-04 05:40] LABS: BASO % 0.3 % (0.0-1.0); EOS # 0.1 10^3/uL (0.0-0.50); EOS % 1.8 % (0.0-3.0); IMMATURE GRANULOCYTE % 0.9 % (0-0); LYMPH # 1.8 10^3/uL (1.5-4.5); LYMPH % 23.8 % (24.0-44.0); MEAN CORPUSCULAR HEMOGLOBIN 26.6 pg (27.0-33.0); MEAN CORPUSCULAR HGB CONC 29.9 g/dl (32.0-36.5); MONO # 1.4 10^3/uL (0.0-0.8); MONO % 18.6 % (0.0-5.0); NEUTROPHILS # 4.1 10^3/uL (1.8-7.7); NEUTROPHILS % 54.6 % (36.0-66.0); PLATELET COUNT, AUTOMATED 239 10^3/uL (150-450); RED CELL DISTRIBUTION WIDTH 15.3 % (11.5-14.5); WHITE BLOOD COUNT 7.4 10^3/uL (4.0-10.0)
[2017-04-04 05:52] LABS: ANION GAP 5 MEQ/L (8-16); BLOOD UREA NITROGEN 15 MG/DL (7-18); CALCIUM LEVEL 8.1 MG/DL (8.8-10.2); CARBON DIOXIDE LEVEL 31 MEQ/L (21-32); CHLORIDE LEVEL 106 MEQ/L (98-107); CREATININE FOR GFR 0.69 MG/DL (0.55-1.02); GLOMERULAR FILTRATION RATE > 60.0 (>45); GLUCOSE, FASTING 176 MG/DL (80-110); POTASSIUM SERUM 4.4 MEQ/L (3.5-5.1); SODIUM LEVEL 142 MEQ/L (136-145)
[2017-04-04 05:56] VITALS: BP 116/56
[2017-04-04] MEDS: SLF 3 ML SYR IV SCH ×3 (06:00→21:01)
[2017-04-04 08:00] VITALS: BP 131/68
[2017-04-04] MEDS: SUCRALFATE 1 GM TAB PO SCH ×3 (08:43→21:00)
[2017-04-04] MEDS: OMEPRAZOLE 20 MG CAP PO SCH ×2 (08:43→21:01)
[2017-04-04] MEDS: POTASSIUM CHLORIDE 10 MEQ SR TABLET PO SCH (08:43)
[2017-04-04] MEDS: MULTIVITAMINS/MINERALS THERAP 1 TAB PO SCH (08:43)
[2017-04-04] MEDS: MIRALAX *UNIT DOSE* 17GM PACKET PO SCH (08:43)
[2017-04-04 12:00] VITALS: BP 123/56
--- NOTE | 2017-04-04 15:21 | IPNPDOC ---
Subjective Date Seen The patient was seen on 04/04/17. Subjective Chief Complaint/HPI The patient is a 61-year-old female admitted with a reason for visit of Symptomatic Anemia. Constitutional: Denies: Chills, Fever Eyes: Denies: Pain ENT: Denies: Head Aches Skin: Denies: Rash Pulmonary: Denies: Dyspnea Cardiovascular: Denies: Chest Pain, Palpitations Gastrointestinal: Denies: Nausea, Vomiting Genitourinary: Denies: Dysuria, Frequency Objective Physical Examination General Exam: Positive: Alert, No Acute Distress Chest Exam: Positive: Clear to auscultation, Normal air movement, Negative: Rales, Rhonchi, Wheezing Heart Exam: Positive: Rate Normal, Regular Rhythm, Normal S1, Normal S2, Murmurs (3/6 systolic murmur best heard at right sternal border), Negative: Gallops, Rubs Telemetry: Positive: Sinus Abdomen Exam: Positive: Normal bowel sounds, Soft, Tenderness (epigastric tenderness without rebound), Negative: Hepatospenomegaly, Mass Extremity Exam: Positive: Edema (bilateral to below-knee) Assessment /Plan Problems (1) Dyspepsia Status: Acute Problem Text: chronic, worse ~30 min PP Asx on BID PPI/Carafate ACTID/QHS h/o PUD (2) Gastrointestinal hemorrhage Status: Acute Problem Text: planned EGD on 04/05 04/01: Patient with positive Hemoccult in emergency department. 04/03 CT AP: Impression: 1. Mild right middle lobe, right lower lobe and left lower lobe atelectasis. 2. No acute abdominopelvic pathology appreciated. 3. Sigmoid diverticula without acute diverticulitis. 4. Fat containing left inguinal hernia. (3) Acute blood loss anemia Permanent Comment: Secondary to GI bleed Last Edited By: Abril Terrazas DO on Apr 02, 2017 13:27 Problem Text: 04/04 hgb stable at 8.5 03/31 7.9-symptomatic; therefore, + 2u PRBCs 04/04 5%, 10; therefore, repeat Venofer 250 x 2 (has received regularly as outpx from Onc) per patient previous fierro by Dr. Mendel canales ? duodenal lesion by capsule, but c EGD only dried blood (4) Diastolic congestive heart failure Status: Chronic Problem Text: Euvolemic Plan/VTE VTE Prophylaxis Ordered?: Yes Plan Diet: Advance (advanced to regular diet yesterday evening by gastroenterology) [facility] Vital Signs/I&O Vital Signs Date Time Temp Pulse Resp B/P (MAP) Pulse Ox O2 Delivery O2 Flow Rate FiO2 04/04/17 12:00 97.8 90 18 123/56 (78) 100 Room Air 03/31/17 20:05 2.0 I&O- Last 24 Hours up to 6 AM 04/05/17 06:00 Intake Total 840 ml Balance 840 ml Laboratory Data 24H LABS Laboratory Tests 2 04/04/17 04:51: Immature Granulocyte % (Auto) 0.9H, White Blood Count 7.4, Red Blood Count 3.19L , Hemoglobin 8.5L, Hematocrit 28.4L, Mean Corpuscular Volume 89.0, Mean Corpuscular Hemoglobin 26.6L, Mean Corpuscular Hemoglobin Concent 29.9L, Red Cell Distribution Width 15.3H, Platelet Count 239, Neutrophils (%) (Auto) 54.6, Lymphocytes (%) (Auto) 23.8L, Monocytes (%) (Auto) 18.6H, Eosinophils (%) (Auto ) 1.8, Basophils (%) (Auto) 0.3, Neutrophils # (Auto) 4.1, Lymphocytes # (Auto) 1.8, Monocytes # (Auto) 1.4H, Eosinophils # (Auto) 0.1, Basophils # (Auto) 0.0, Immature Granulocyte # (Auto) 0.1H, Nucleated Red Blood Cells % (auto) 0.0, Anion Gap 5L, Glomerular Filtration Rate > 60.0, Blood Urea Nitrogen 15, Creatinine 0.69, Sodium Level 142, Potassium Level 4.4, Chloride Level 106, Carbon Dioxide Level 31, Calcium Level 8.1L CBC/BMP Laboratory Tests 04/04/17 04:51 Red Blood Count 3.19 L, Mean Corpuscular Volume 89.0, Mean Corpuscular Hemoglobin 26.6 L, Mean Corpuscular Hemoglobin Concent 29.9 L, Red Cell Distribution Width 15.3 H, Neutrophils (%) (Auto) 54.6, Lymphocytes (%) (Auto) 23.8 L, Monocytes (%) (Auto) 18.6 H, Eosinophils (%) (Auto) 1.8, Basophils (%) ( Auto) 0.3, Neutrophils # (Auto) 4.1, Lymphocytes # (Auto) 1.8, Monocytes # (Auto ) 1.4 H, Eosinophils # (Auto) 0.1, Basophils # (Auto) 0.0, Calcium Level 8.1 L Noel Starr M.D. Apr 04, 2017 15:21
[2017-04-04 16:00] VITALS: BP 132/63
[2017-04-04] MEDS: IRON SUCROSE 250 MG in NS 250 ML IV SCH (16:45)
[2017-04-04 20:00] VITALS: BP 148/71
[2017-04-04 23:59] VITALS: BP 118/71
[2017-04-05] VITALS (8 sets, daily range): BP systolic 109–135; BP diastolic 54–67
[2017-04-05] MEDS: SLF 3 ML SYR IV SCH ×3 (04:20→20:53)
[2017-04-05 05:31] LABS: BASO % 0.4 % (0.0-1.0); EOS # 0.1 10^3/uL (0.0-0.50); EOS % 0.9 % (0.0-3.0); LYMPH # 1.3 10^3/uL (1.5-4.5); LYMPH % 17.4 % (24.0-44.0); MEAN CORPUSCULAR HGB CONC 29.6 g/dl (32.0-36.5); MEAN CORPUSCULAR VOLUME 87.8 fl (80.0-96.0); MONO # 1.3 10^3/uL (0.0-0.8); MONO % 16.9 % (0.0-5.0); NEUTROPHILS # 4.8 10^3/uL (1.8-7.7); NEUTROPHILS % 63.4 % (36.0-66.0); PLATELET COUNT, AUTOMATED 245 10^3/uL (150-450); RED CELL DISTRIBUTION WIDTH 15.2 % (11.5-14.5); WHITE BLOOD COUNT 7.6 10^3/uL (4.0-10.0)
[2017-04-05 05:53] LABS: ANION GAP 4 MEQ/L (8-16); BLOOD UREA NITROGEN 13 MG/DL (7-18); CALCIUM LEVEL 8.2 MG/DL (8.8-10.2); CARBON DIOXIDE LEVEL 32 MEQ/L (21-32); CHLORIDE LEVEL 105 MEQ/L (98-107); CREATININE FOR GFR 0.63 MG/DL (0.55-1.02); GLOMERULAR FILTRATION RATE > 60.0 (>45); GLUCOSE, FASTING 207 MG/DL (80-110); POTASSIUM SERUM 4.2 MEQ/L (3.5-5.1); SODIUM LEVEL 141 MEQ/L (136-145)
[2017-04-05] MEDS: SUCRALFATE 1 GM TAB PO SCH ×4 (07:30→20:52)
[2017-04-05] MEDS: MIRALAX *UNIT DOSE* 17GM PACKET PO SCH (07:57)
[2017-04-05] MEDS: POTASSIUM CHLORIDE 10 MEQ SR TABLET PO SCH (07:57)
[2017-04-05] MEDS: OMEPRAZOLE 20 MG CAP PO SCH ×2 (07:57→20:52)
[2017-04-05] MEDS: MULTIVITAMINS/MINERALS THERAP 1 TAB PO SCH (07:57)
[2017-04-05] MEDS ORDERED: IRON SUCROSE 100MG 5ML VIAL (J1756 PER 1MG) IV SCH (09:00)
--- NOTE | 2017-04-05 09:13 | REP ---
Clinical: Chest pain. Comparison: 06/06/2016. Findings: Examination is limited by portable technique and poor inspiratory effort. Bibasilar fibroatelectatic changes are similar to prior examination. Superimposed trace atelectasis cannot be excluded. No definite effusion. No pneumothorax. Skeletal structures intact. Impression: Chronic stable changes. Cannot exclude trace basilar atelectasis. Signed by Ovidio Esquivel MD 04/05/2017 09:05 A
--- NOTE | 2017-04-05 13:28 | IPNPDOC ---
Subjective Date Seen The patient was seen on 04/05/17. Subjective Chief Complaint/HPI The patient is a 61-year-old female admitted with a reason for visit of Symptomatic Anemia. Events since last encounter Patient reports she is feeling great today, she is scheduled for endoscopy today. She does not have any acute concerns. Constitutional: Denies: Chills, Fever Pulmonary: Denies: Dyspnea Cardiovascular: Denies: Chest Pain Gastrointestinal: Denies: Nausea, Vomiting, Abdominal Pain Objective Physical Examination General Exam: Positive: Alert, No Acute Distress Chest Exam: Positive: Clear to auscultation, Normal air movement, Negative: Rales, Wheezing Heart Exam: Positive: Rate Normal, Regular Rhythm, Normal S1, Normal S2, Murmurs (3/6 systolic murmur best heard at right sternal border), Negative: Rubs Telemetry: Positive: Sinus Abdomen Exam: Positive: Normal bowel sounds, Soft, Negative: Tenderness, Hepatospenomegaly, Mass Extremity Exam: Positive: Edema (bilateral to below-knee) Assessment /Plan Problems (1) Gastrointestinal hemorrhage Status: Acute Problem Text: 04/05: EGD scheduled for today, further evaluation, treatment as per results of EGD 04/03 CT AP: Impression: 1. Mild right middle lobe, right lower lobe and left lower lobe atelectasis. 2. No acute abdominopelvic pathology appreciated. 3. Sigmoid diverticula without acute diverticulitis. 4. Fat containing left inguinal hernia. 04/01: Patient with positive Hemoccult in emergency department. (2) Acute blood loss anemia Permanent Comment: Secondary to GI bleed Last Edited By: Teresa Terrazas DO on Apr 02, 2017 13:27 Problem Text: 04/05: Hemoglobin stable at 8.5 04/04 hgb stable at 8.5 03/31 7.9-symptomatic; therefore, + 2u PRBCs 04/04 5%, 10; therefore, repeat Venofer 250 x 2 (has received regularly as outpx from Onc) per patient previous fierro by Dr. Mendel canales ? duodenal lesion by capsule, but c EGD only dried blood (3) Dyspepsia Status: Acute Problem Text: 04/05: Continue omeprazole 40 mg by mouth twice a day, Carafate 1 g by mouth every before meals, at bedtime (4) Diastolic congestive heart failure Status: Chronic Problem Text: Euvolemic Plan/VTE VTE Prophylaxis Ordered?: Yes VS, I&O, 24H, Fishbone Vital Signs/I&O Vital Signs Date Time Temp Pulse Resp B/P (MAP) Pulse Ox O2 Delivery O2 Flow Rate FiO2 04/05/17 12:00 98.4 93 16 113/59 (77) 95 Room Air 03/31/17 20:05 2.0 I&O- Last 24 Hours up to 6 AM 04/06/17 06:00 Intake Total 0 ml Output Total 0 ml Balance 0 ml Laboratory Data 24H LABS Laboratory Tests 2 04/05/17 04:58: Immature Granulocyte % (Auto) 1.0H, White Blood Count 7.6, Red Blood Count 3.27L , Hemoglobin 8.5L, Hematocrit 28.7L, Mean Corpuscular Volume 87.8, Mean Corpuscular Hemoglobin 26.0L, Mean Corpuscular Hemoglobin Concent 29.6L, Red Cell Distribution Width 15.2H, Platelet Count 245, Neutrophils (%) (Auto) 63.4, Lymphocytes (%) (Auto) 17.4L, Monocytes (%) (Auto) 16.9H, Eosinophils (%) (Auto ) 0.9, Basophils (%) (Auto) 0.4, Neutrophils # (Auto) 4.8, Lymphocytes # (Auto) 1.3L, Monocytes # (Auto) 1.3H, Eosinophils # (Auto) 0.1, Basophils # (Auto) 0.0 , Immature Granulocyte # (Auto) 0.1H, Nucleated Red Blood Cells % (auto) 0.3H, Anion Gap 4L, Glomerular Filtration Rate > 60.0, Blood Urea Nitrogen 13, Creatinine 0.63, Sodium Level 141, Potassium Level 4.2, Chloride Level 105, Carbon Dioxide Level 32, Calcium Level 8.2L CBC/BMP Laboratory Tests 04/05/17 04:58 Red Blood Count 3.27 L, Mean Corpuscular Volume 87.8, Mean Corpuscular Hemoglobin 26.0 L, Mean Corpuscular Hemoglobin Concent 29.6 L, Red Cell Distribution Width 15.2 H, Neutrophils (%) (Auto) 63.4, Lymphocytes (%) (Auto) 17.4 L, Monocytes (%) (Auto) 16.9 H, Eosinophils (%) (Auto) 0.9, Basophils (%) ( Auto) 0.4, Neutrophils # (Auto) 4.8, Lymphocytes # (Auto) 1.3 L, Monocytes # ( Auto) 1.3 H, Eosinophils # (Auto) 0.1, Basophils # (Auto) 0.0, Calcium Level 8.2 L GME ATTESTATION GME ATTESTATION My faculty preceptor for this patient encounter was physically present during the encounter and was fully available. All aspects of the patient interview, examination, medical decision making process, and medical care plan development were reviewed and approved by the faculty preceptor. The faculty preceptor is aware and concurs with the plan as stated in the body of this note and will attest to such by his/her cosignature. TERESA TERRAZAS DO Apr 05, 2017 13:28
[2017-04-05] MEDS ORDERED: PROPOFOL 200 MG/20 ML VIAL As Ordered ONE (14:05)
[2017-04-05] MEDS ORDERED: LIDOCAINE 2% INJ 100 MG/5 ML SDV (FOR ANES.) As Ordered ONE (14:05)
[2017-04-05] MEDS ORDERED: fentaNYL 100 MCG/2 ML INJECTION (J3010) As Ordered ONE (15:30)
--- NOTE | 2017-04-05 16:19 | ROOR ---
Patient Name: Nedra Astudillo Procedure Date: 04/05/2017 3:30 PM Date of : 1955 Age: 61 Room: [facility], [facility] Gender: Female Note Status: Finalized Procedure: Upper GI endoscopy Indications: Suspected upper gastrointestinal bleeding in patient with chronic blood loss, Iron deficiency anemia due to suspected upper gastrointestinal bleeding Providers: Berto Mitchell MD Referring MD: Asia Madsen MD Requesting Provider: Medicines: Monitored Anesthesia Care Complications: No immediate complications. Procedure: Pre-Anesthesia Assessment: - Prior to the procedure, a History and Physical was performed, and patient medications and allergies were reviewed. The patient is competent. The risks and benefits of the procedure and the sedation options and risks were discussed with the patient. All questions were answered and informed consent was obtained. Patient identification and proposed procedure were verified by the physician, the nurse and the anesthesiologist in the procedure room. Mental Status Examination: alert and oriented. Airway Examination: normal oropharyngeal airway and neck mobility. Respiratory Examination: clear to auscultation. CV Examination: normal. Prophylactic Antibiotics: The patient does not require prophylactic antibiotics. Prior Anticoagulants: The patient has taken no previous anticoagulant or antiplatelet agents. ASA Grade Assessment: III - A patient with severe systemic disease. After reviewing the risks and benefits, the patient was deemed in satisfactory condition to undergo the procedure. The anesthesia plan was to use monitored anesthesia care (MAC). Immediately prior to administration of medications, the patient was re-assessed for adequacy to receive sedatives. The heart rate, respiratory rate, oxygen saturations, blood pressure, adequacy of pulmonary ventilation, and response to care were monitored throughout the procedure. The physical status of the patient was re-assessed after the procedure. The Colonoscope was introduced through the mouth, and advanced to the second part of duodenum. The upper GI endoscopy was accomplished without difficulty. The patient tolerated the procedure well. Findings: The examined esophagus was normal. Multiple dispersed, 5 mm non-bleeding erosions were found in the gastric antrum. There were no stigmata of recent bleeding. Biopsies were taken with a cold forceps for Helicobacter pylori testing. Verification of patient identification for the specimen was done by the physician and nurse using the patient's name, date and medical record number. Estimated blood loss was minimal. A few diffuse erosions without bleeding were found in the duodenal bulb. The second portion of the duodenum, third portion of the duodenum and fourth portion of the duodenum were normal. The examined jejunum was normal. Impression: - Normal esophagus. - Non-bleeding erosive gastropathy. Biopsied. - Duodenal erosions without bleeding. - Normal second portion of the duodenum, third portion of the duodenum and fourth portion of the duodenum. - Normal examined jejunum. Recommendation: - Patient has a contact number available for emergencies. The signs and symptoms of potential delayed complications were discussed with the patient. Return to normal activities tomorrow. Written discharge instructions were provided to the patient. - Resume previous diet. - Continue present medications. 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 - Await pathology results. - To visualize the small bowel, perform video capsule endoscopy at appointment to be scheduled. - Return to GI clinic in 2 weeks. Please call [phone] for appointment. - Return to primary care physician. Berto Mitchell MD Berto Mitchell MD 04/05/2017 4:19:31 PM This report has been signed electronically. Number of Addenda: 0 Note Initiated On: 04/05/2017 3:30 PM Estimated Blood Loss: Estimated blood loss was minimal.
[2017-04-05] MEDS: IRON SUCROSE 250 MG in NS 250 ML IV SCH (16:57)
[2017-04-06] VITALS: BP 134/70
[2017-04-06] MEDS: SLF 3 ML SYR IV SCH (05:45)
[2017-04-06 07:35] LABS: MEAN CORPUSCULAR HEMOGLOBIN 26.2 pg (27.0-33.0); MEAN CORPUSCULAR HGB CONC 29.8 g/dl (32.0-36.5); MEAN CORPUSCULAR VOLUME 88.1 fl (80.0-96.0); PLATELET COUNT, AUTOMATED 257 10^3/uL (150-450); RED CELL DISTRIBUTION WIDTH 15.6 % (11.5-14.5); WHITE BLOOD COUNT 9.3 10^3/uL (4.0-10.0)
[2017-04-06] MEDS: SUCRALFATE 1 GM TAB PO SCH (07:35)
[2017-04-06 07:46] LABS: ANION GAP 7 MEQ/L (8-16); BLOOD UREA NITROGEN 13 MG/DL (7-18); CALCIUM LEVEL 8.3 MG/DL (8.8-10.2); CARBON DIOXIDE LEVEL 30 MEQ/L (21-32); CHLORIDE LEVEL 103 MEQ/L (98-107); CREATININE FOR GFR 0.55 MG/DL (0.55-1.02); GLOMERULAR FILTRATION RATE > 60.0 (>45); GLUCOSE, FASTING 161 MG/DL (80-110); SODIUM LEVEL 140 MEQ/L (136-145)
[2017-04-06 08:00] VITALS: BP 114/56
[2017-04-06] MEDS: POTASSIUM CHLORIDE 10 MEQ SR TABLET PO SCH (09:09)
[2017-04-06] MEDS: MIRALAX *UNIT DOSE* 17GM PACKET PO SCH (09:09)
[2017-04-06] MEDS: MULTIVITAMINS/MINERALS THERAP 1 TAB PO SCH (09:09)
[2017-04-06] MEDS: OMEPRAZOLE 20 MG CAP PO SCH (09:09)
[2017-04-06] MEDS ORDERED: SUCR1TA PO (09:12)
[2017-04-06] MEDS ORDERED: OMEP20CA3 PO (09:12)
[2017-04-06] MEDS ORDERED: PEG1POW PO (09:12)
[2017-04-06 11:08] LABS: PRETREATED FOLATE FOR RBCFOL 13.2 NG/ML
--- NOTE | 2017-04-06 14:24 | DSES ---
DATE OF ADMISSION: 03/31/2017 DATE OF DISCHARGE: 04/06/2017 BRIEF HISTORY AND PHYSICAL The patient is a 61-year-old patient of Mattie Moseley who presented with increased shortness of breath and chest pain with exertion. PAST MEDICAL HISTORY: Significant for chronic diastolic congestive heart failure, hypertension, aortic stenosis with valve replacement and history of chronic anemia requiring multiple transfusions in the past. LABORATORIES: On admission: White count 12, hemoglobin 7.9, platelets 244,000. Sodium 137, potassium 3.6, BUN 7, creatinine 0.7, glucose 153, troponin was negative. EKG showed inverted T-waves on multiple leads. Chest x-ray showed chronic changes. CT of the abdomen and pelvis showed mild right middle lobe, right lower lobe and left lower lobe atelectasis. No acute abdominal pelvic pathology. Sigmoid diverticula without acute diverticulitis. Fat containing large inguinal hernia on the left. HOSPITAL COURSE: 1. The patient was admitted for symptomatic anemia. Transfused 2 units of packed red blood cells during the hospitalization, hemoglobin improved and remained stable throughout the rest of the hospitalization, hemoglobin was 8.6 at the time of discharge, and she had no further chest pain or shortness of breath and has been ambulating without symptoms. She underwent upper endoscopy on 04/05/[address] Mitchell. It showed normal esophagus, nonbleeding erosive gastropathy, which has been biopsied. The pathology is pending at the time of discharge. She had duodenal erosions without bleeding. Normal second portion of the duodenum, third and fourth portion of duodenum, and jejunum. The patient will be discharged home on twice a day Protonix and Carafate before food and nightly with a followup with Dr. Mitchell per his office. Aspirin has been held. 2. Shortness of breath and chest pain with exertion related to her anemia. CIP and troponins were negative serially. EKG on admission did show some ST-T wave changes that were increased related to the June 06, 2016 EKG. She has not seen cardiology in quite a while and should followup with them as an outpatient. It may be beneficial to have another stress test. In the meantime, however, her aspirin has been held due to the above GI bleeding. 3. Chronic diastolic congestive heart failure. Diuretics were held during the hospitalization but will be restarted at her usual home dose upon discharge home. She will need monitoring of her blood pressure. DISPOSITION: She is stable for discharge. Followup with Mattie Moseley next week. Followup with Dr. Mitchell per his office. Followup with cardiology per their office. Medications: - omeprazole 40 mg twice a day - MiraLax daily - Carafate 1 gram before food and nightly - furosemide 60 mg daily - spironolactone 25 mg daily - potassium 20 mEq daily - multivitamin daily Her aspirin has been discontinued. DISCHARGE DIAGNOSES: 1. Anemia secondary to upper GI bleed with nonbleeding erosive gastropathy and duodenal erosions without bleeding on upper endoscopy. 2. EKG changes suggestive of ischemia with negative CIP and troponin. 3. Chronic diastolic congestive heart failure.
== END 2017-04-06 11:10 | disposition home or self-care (01) | DRG 378 ==
LOC: M ED 18:34 → M ED INP 20:55 → M PCU 04-01 12:37 → M PED 04-05 19:52
PROVIDERS: ADMIT Internal Medicine; ATTEND Family Medicine
PROC: 30233N1 Transfusion of Nonautologous Red Blood Cells into Peripheral Vein, Percutaneous Approach (ICD-10-PCS; 2017-03-31)
PROC: 0DB78ZX Excision of Stomach, Pylorus, Via Natural or Artificial Opening Endoscopic, Diagnostic (ICD-10-PCS; principal; 2017-04-05 16:30)
DX: K92.2 Gastrointestinal hemorrhage, unspecified (principal); D62 Acute posthemorrhagic anemia; I50.32 Chronic diastolic (congestive) heart failure; K29.60 Other gastritis without bleeding; K21.9 Gastro-esophageal reflux disease without esophagitis; I11.0 Hypertensive heart disease with heart failure; Z95.2 Presence of prosthetic heart valve; Z90.710 Acquired absence of both cervix and uterus; Z90.722 Acquired absence of ovaries, bilateral; Z88.0 Allergy status to penicillin; Z88.2 Allergy status to sulfonamides; Z79.899 Other long term (current) drug therapy

== ENCOUNTER → 2017-04-14 | Outpatient (REF) | payer MEDICARE ==
[~2017-04-14] MED LIST changes: +K-TA1TAB PO; +OMEP20CA3 PO; +PEG1POW PO; +SUCR1TA PO
== END ==
LOC: M LAB REF 13:43
PROVIDERS: ATTEND Internal Medicine Medical Oncology
DX: D50.9 Iron deficiency anemia, unspecified (principal)

== ENCOUNTER → 2017-06-24 | Outpatient (REF) | payer MEDICARE ==
[2017-06-24 13:24] LABS: BASO % 0.3 % (0.0-1.0); EOS # 0.1 10^3/uL (0.0-0.50); EOS % 1.1 % (0.0-3.0); HEMATOCRIT 32.1 % (36.0-47.0); HEMOGLOBIN 9.6 g/dl (12.0-16.0); IMMATURE GRANULOCYTE % 0.8 % (0-3.0); LYMPH # 1.2 10^3/uL (1.5-4.5); LYMPH % 16.6 % (24.0-44.0); MEAN CORPUSCULAR HEMOGLOBIN 27.9 pg (27.0-33.0); MEAN CORPUSCULAR HGB CONC 29.9 g/dl (32.0-36.5); MEAN CORPUSCULAR VOLUME 93.3 fl (80.0-96.0); MONO % 13.1 % (0.0-5.0); NEUTROPHILS # 4.9 10^3/uL (1.8-7.7); NEUTROPHILS % 68.1 % (36.0-66.0); PLATELET COUNT, AUTOMATED 284 10^3/uL (150-450); RED BLOOD COUNT 3.44 10^6/uL (4.00-5.40); RED CELL DISTRIBUTION WIDTH 21.2 % (11.5-14.5); WHITE BLOOD COUNT 7.2 10^3/uL (4.0-10.0)
[2017-06-24 14:03] LABS: ALBUMIN 3.5 GM/DL (3.2-5.2); ALBUMIN/GLOBULIN RATIO 1.09 (1.00-1.93); ALKALINE PHOSPHATASE 123 U/L (45-117); ALT/SGPT 34 U/L (12-78); AST/SGOT 19 U/L (7-37); BILIRUBIN,DIRECT < 0.1 MG/DL (0.0-0.2); BILIRUBIN,TOTAL 0.2 MG/DL (0.2-1.0); CALCIUM LEVEL 8.3 MG/DL (8.8-10.2); CREATININE FOR GFR 0.54 MG/DL (0.55-1.30); GLOMERULAR FILTRATION RATE > 60.0 (>45); TOTAL PROTEIN 6.7 GM/DL (6.4-8.2)
[2017-06-24 14:20] LABS: TOTAL 25(OH) VITAMIN D 16.5 NG/ML (30.0-100.0)
[2017-06-29 00:06] LABS: VITAMIN D 1,25 DIHYDROXY 69.7 pg/mL (19.9-79.3)
[2017-06-29 00:06] LABS: ANGIOTENSIN 1 CONVERTING ENZYM 23 U/L (14-82)
== END ==
LOC: M LAB REF 12:46
DX: R06.00 Dyspnea, unspecified (principal); E55.9 Vitamin D deficiency, unspecified
CPT/HCPCS: 82310

== ENCOUNTER → 2017-06-28 | Outpatient (REF) | payer MEDICARE, MEDICAID ==
[2017-06-28 14:07] LABS: FERRITIN 59 NG/ML (8-252); IRON (FE) 38 UG/DL (50-170); PERCENT SATURATION 12.5 % (13.2-45.0); TOTAL IRON BINDING CAPACITY 303 UG/DL (250-450)
== END ==
LOC: M LAB REF 13:27
DX: D50.9 Iron deficiency anemia, unspecified (principal)
CPT/HCPCS: 83550

== ENCOUNTER 2017-07-23 12:17 | Outpatient (CLI) | payer MEDICARE ==
[2017-07-23] MEDS: ACETAMINOPHEN TAB 650MG DOSE (2X325MG) PO ×2 (14:39)
[2017-07-23] MEDS: diphenhydrAMINE 25 MG CAP PO ×2 (14:40)
[2017-07-23 15:19] LABS: IMMEDIATE SPIN CROSSMATCH 1 2
== END 2017-07-23 20:05 | disposition home or self-care (01) ==
LOC: M OPCLI4PR 12:17 → M PED 12:29
DX: D50.9 Iron deficiency anemia, unspecified (principal); E55.9 Vitamin D deficiency, unspecified; R73.01 Impaired fasting glucose; R06.00 Dyspnea, unspecified; J47.9 Bronchiectasis, uncomplicated; J98.4 Other disorders of lung; J98.6 Disorders of diaphragm; Z95.4 Presence of other heart-valve replacement; Z88.0 Allergy status to penicillin; Z88.2 Allergy status to sulfonamides
CPT/HCPCS: 36430

== ENCOUNTER → 2017-07-27 | Outpatient (CLI) | payer MEDICARE | LOC: M RAD 09:26 | DX: R06.00 Dyspnea, unspecified (principal); J47.9 Bronchiectasis, uncomplicated; J98.4 Other disorders of lung; J98.6 Disorders of diaphragm; Z95.4 Presence of other heart-valve replacement; Z79.899 Other long term (current) drug therapy; D50.9 Iron deficiency anemia, unspecified; E55.9 Vitamin D deficiency, unspecified; R73.01 Impaired fasting glucose | CPT/HCPCS: 71250 ==

== ENCOUNTER → 2017-07-27 | Outpatient (REF) | payer MEDICARE, MEDICAID ==
[2017-07-27 12:23] LABS: BASO % 0.1 % (0.0-1.0); EOS # 0.1 10^3/uL (0.0-0.50); EOS % 0.8 % (0.0-3.0); HEMATOCRIT 26.4 % (36.0-47.0); HEMOGLOBIN 7.7 g/dl (12.0-16.0); IMMATURE GRANULOCYTE % 0.8 % (0-3.0); LYMPH # 1.4 10^3/uL (1.5-4.5); LYMPH % 19.8 % (24.0-44.0); MEAN CORPUSCULAR HEMOGLOBIN 25.9 pg (27.0-33.0); MEAN CORPUSCULAR HGB CONC 29.2 g/dl (32.0-36.5); MEAN CORPUSCULAR VOLUME 88.9 fl (80.0-96.0); MONO # 1.2 10^3/uL (0.0-0.8); MONO % 16.4 % (0.0-5.0); NEUTROPHILS # 4.4 10^3/uL (1.8-7.7); NEUTROPHILS % 62.1 % (36.0-66.0); PLATELET COUNT, AUTOMATED 222 10^3/uL (150-450); RED BLOOD COUNT 2.97 10^6/uL (4.00-5.40); RED CELL DISTRIBUTION WIDTH 18.2 % (11.5-14.5); WHITE BLOOD COUNT 7.1 10^3/uL (4.0-10.0)
[2017-07-27 12:57] LABS: ALBUMIN 3.4 GM/DL (3.2-5.2); ALBUMIN/GLOBULIN RATIO 1.06 (1.00-1.93); ALKALINE PHOSPHATASE 103 U/L (45-117); ALT/SGPT 25 U/L (12-78); ANION GAP 7 MEQ/L (8-16); AST/SGOT 13 U/L (7-37); BILIRUBIN,TOTAL 0.3 MG/DL (0.2-1.0); BLOOD UREA NITROGEN 18 MG/DL (7-18); CALCIUM LEVEL 8.2 MG/DL (8.8-10.2); CARBON DIOXIDE LEVEL 29 MEQ/L (21-32); CHLORIDE LEVEL 104 MEQ/L (98-107); CHOLESTEROL LEVEL 94 MG/DL (<200); CHOLESTEROL RISK RATIO 2.937 (<5); CREATININE FOR GFR 0.51 MG/DL (0.55-1.30); FREE T4 1.13 NG/DL (0.76-1.46); GLOMERULAR FILTRATION RATE > 60.0 (>45); GLUCOSE, FASTING 158 MG/DL (70-100); HDL CHOLESTEROL 32 MG/DL (>40); LDL CHOLESTEROL 45.2 MG/DL (<100); NON-HDL-C 62 MG/DL; POTASSIUM SERUM 4.1 MEQ/L (3.5-5.1); SODIUM LEVEL 140 MEQ/L (136-145); THYROID STIMULATING HORMONE 0.842 uIU/ML (0.358-3.740); TOTAL PROTEIN 6.6 GM/DL (6.4-8.2); TRIGLYCERIDES LEVEL 84 MG/DL (<150)
[2017-07-27 13:11] LABS: ESTIMATED AVERAGE GLUCOSE 134 MG/DL (60-110); HEMOGLOBIN A1c 6.3 %
[2017-07-27 13:26] LABS: TOTAL 25(OH) VITAMIN D 16.1 NG/ML (30.0-100.0)
== END ==
LOC: M SFHCPLAZ 09:49
DX: E55.9 Vitamin D deficiency, unspecified (principal); R73.01 Impaired fasting glucose

== ENCOUNTER 2017-07-30 09:44 | Outpatient (CLI) | payer MEDICARE, MEDICAID ==
[2017-07-30] MEDS: ACETAMINOPHEN TAB 650MG DOSE (2X325MG) PO (11:58)
[2017-07-30] MEDS: diphenhydrAMINE 25 MG CAP PO (11:58)
[2017-07-30 12:12] LABS: IMMEDIATE SPIN CROSSMATCH 1 2
== END 2017-07-30 18:25 | disposition home or self-care (01) ==
LOC: M OPCLI5PR 09:44 → M MS5PR 09:47 → M OPCLI5PR 18:25
PROVIDERS: Emergency Medicine Pediatric Emergency Medicine
DX: D64.9 Anemia, unspecified (principal); Z88.0 Allergy status to penicillin; Z88.2 Allergy status to sulfonamides; Z79.82 Long term (current) use of aspirin; Z79.899 Other long term (current) drug therapy
CPT/HCPCS: 36430

== ENCOUNTER → 2017-07-30 | Outpatient (REF) | payer MEDICARE ==
[2017-07-30 14:22] LABS: FERRITIN 10 NG/ML (8-252); IRON (FE) 24 UG/DL (50-170); PERCENT SATURATION 6.4 % (13.2-45.0); TOTAL IRON BINDING CAPACITY 373 UG/DL (250-450)
== END ==
LOC: M LAB REF 12:46
DX: D50.9 Iron deficiency anemia, unspecified (principal)

== ENCOUNTER 2017-08-02 17:21 | Emergency (ER) | payer MEDICARE ==
[2017-08-02 19:27] LABS: BASO % 0.4 % (0.0-1.0); EOS # 0.1 10^3/uL (0.0-0.50); EOS % 0.6 % (0.0-3.0); HEMATOCRIT 28.7 % (36.0-47.0); HEMOGLOBIN 8.4 g/dl (12.0-16.0); IMMATURE GRANULOCYTE % 3.9 % (0-3.0); LYMPH # 1.7 10^3/uL (1.5-4.5); LYMPH % 14.9 % (24.0-44.0); MEAN CORPUSCULAR HEMOGLOBIN 25.9 pg (27.0-33.0); MEAN CORPUSCULAR HGB CONC 29.3 g/dl (32.0-36.5); MEAN CORPUSCULAR VOLUME 88.6 fl (80.0-96.0); MONO # 1.4 10^3/uL (0.0-0.8); MONO % 12.5 % (0.0-5.0); NEUTROPHILS # 7.7 10^3/uL (1.8-7.7); NEUTROPHILS % 67.7 % (36.0-66.0); PLATELET COUNT, AUTOMATED 225 10^3/uL (150-450); RED BLOOD COUNT 3.24 10^6/uL (4.00-5.40); RED CELL DISTRIBUTION WIDTH 20.8 % (11.5-14.5); WHITE BLOOD COUNT 11.3 10^3/uL (4.0-10.0)
[2017-08-02 19:31] LABS: INR 0.98; PROTHROMBIN TIME 13.1 SECONDS (12.4-14.5)
[2017-08-02 19:37] LABS: ALBUMIN 3.5 GM/DL (3.2-5.2); ALBUMIN/GLOBULIN RATIO 1.03 (1.00-1.93); ALKALINE PHOSPHATASE 117 U/L (45-117); ANION GAP 5 MEQ/L (8-16); AST/SGOT 67 U/L (7-37); BILIRUBIN,DIRECT 0.1 MG/DL (0.0-0.2); BILIRUBIN,TOTAL 0.6 MG/DL (0.2-1.0); BLOOD UREA NITROGEN 23 MG/DL (7-18); CALCIUM LEVEL 8.6 MG/DL (8.8-10.2); CARBON DIOXIDE LEVEL 31 MEQ/L (21-32); CHLORIDE LEVEL 105 MEQ/L (98-107); CPK CREATINE PHOSPHOKINASE 136 U/L (26-192); CREATININE FOR GFR 0.81 MG/DL (0.55-1.30); GLOMERULAR FILTRATION RATE > 60.0 (>45); GLUCOSE, FASTING 277 MG/DL (70-100); POTASSIUM SERUM 4.9 MEQ/L (3.5-5.1); SODIUM LEVEL 141 MEQ/L (136-145); TOTAL PROTEIN 6.9 GM/DL (6.4-8.2); TROPONIN I 0.04 NG/ML (< 0.10)
[2017-08-02 19:41] LABS: ALT/SGPT 37 U/L (12-78); CK-MB VALUE MASS < 1.0 NG/ML (<3.6); MB/CK RELATIVE INDEX 0.73 (< OR =4)
[2017-08-02] MEDS ORDERED: ISOVUE-370 76% 100ML VIAL (Q9967) As Ordered (20:28)
[2017-08-02] MEDS: ONDANSETRON 4MG/2ML VIAL (J2405) IV (21:40)
[2017-08-02] MEDS: NS 500 ML IV (21:40)
[2017-08-02] MEDS: ASPIRIN 81 MG CHEW TABLET PO (21:40)
== END 2017-08-02 21:51 | disposition home or self-care (01) ==
LOC: M ED 17:21
DX: D64.9 Anemia, unspecified (principal); R06.02 Shortness of breath; I25.10 Atherosclerotic heart disease of native coronary artery without angina pectoris; Z79.899 Other long term (current) drug therapy; Z79.82 Long term (current) use of aspirin; Z88.0 Allergy status to penicillin; Z88.2 Allergy status to sulfonamides; Z88.8 Allergy status to other drugs, medicaments and biological substances
CPT/HCPCS: Q9967

== ENCOUNTER → 2017-08-05 | Outpatient (REF) | payer MEDICARE ==
[2017-08-05 10:51] LABS: RETIC HEMOGLOBIN EQUIVALENT 20.5 pg (24-36); RETICULOCYTE # 244.4 10^9/L (17-77); RETICULOCYTE % 8.2 % (0.5-1.5)
[2017-08-05 11:01] LABS: APPEARANCE, URINE CLEAR (CLEAR); BACTERIA, URINE AUTO NEGATIVE (NEGATIVE); BILIRUBIN, URINE AUTO NEGATIVE (NEGATIVE); BLOOD, URINE BLOOD NEGATIVE (NEGATIVE); COLOR, URINE YELLOW (YELLOW); GLUCOSE, URINE (UA) AUTO 3+ mg/dL (NEGATIVE); KETONE, URINE AUTO NEGATIVE (NEGATIVE); LEUKOCYTE ESTERASE, URINE AUTO NEGATIVE (NEGATIVE); MUCUS, URINE SMALL (NEGATIVE); NITRITE, URINE AUTO NEGATIVE (NEGATIVE); PROTEIN, URINE AUTO NEGATIVE (NEGATIVE); RBC, URINE AUTO 1 /HPF (0-3); SPECIFIC GRAVITY URINE AUTO 1.029 (1.002-1.035); SQUAMOUS EPITHELIAL CELL UR AU 3 /HPF (0-6); UROBILINOGEN, URINE AUTO 0.2 mg/dL (0.0-2.0); WBC, URINE AUTO 2 /HPF (0-3)
[2017-08-06 08:06] LABS: HAPTOGLOBIN < 10 mg/dL (34-200)
== END ==
LOC: M LAB REF 10:23
DX: D50.9 Iron deficiency anemia, unspecified (principal)

== ENCOUNTER → 2017-08-05 | Outpatient (CLI) | payer MEDICARE ==
[~2017-08-05] MED LIST changes: -/BISO10TA OR; -/PANT40TA; -/SUCR1TA OR; -ACET65TA OR; +ACETAMINOPHEN 325 MG TAB As Ordered; +ACETAMINOPHEN TAB 650MG DOSE (2X325MG) PO; -ALDA25TA2 OR; -ASPI1TAB PO; -ASPI325T; -ASPI325T OR; -ASPI81TA85 PO; -BISO5TAB5 PO; -CARA1TAB6 PO; -COLA100C2 OR; -DOXY100T OR; -DRIS50002 PO; -FERR1TAB8 PO; -FERR325T OR; -FURO20TA2 PO; -FURO40TA2 PO; -K-TA1TAB PO; -LIPI20TA OR; -LOPR50TA OR; -MULTIVIT OR; -OMEP20CA3 PO; -OMEP40CA2 PO; -PEG1POW PO; -PERC5TAB8 OR; -PERC7.5T8 OR; -POTA10CA PO; -POTA20TA2 OR; -PRIL40CA OR; -PROT1TAB2 PO; -SENO8.6T5 OR; -SPIR25TA2 PO; -SUCR1TA PO; -TRAM50TA2 OR; -VITA500C OR; -VITA500T88 PO; -VITMTA PO; -ZANT150T OR; -atenolol PO; +diphenhydrAMINE 25 MG CAP As Ordered; +diphenhydrAMINE 25 MG CAP PO; -protonix; -protonix PO
[2017-08-05 13:23] LABS: IMMEDIATE SPIN CROSSMATCH 1 2
== END ==
LOC: M INFU 10:44
DX: D50.9 Iron deficiency anemia, unspecified (principal)
CPT/HCPCS: 36430

== ENCOUNTER → 2017-08-19 | Outpatient (REF) | payer MEDICARE, MEDICAID ==
[2017-08-20 14:20] LABS: HAPTOGLOBIN < 10 mg/dL (34-200)
== END ==
LOC: M LAB REF 13:51
DX: D50.9 Iron deficiency anemia, unspecified (principal)
CPT/HCPCS: 83010

== ENCOUNTER 2017-09-16 12:03 | Inpatient (IN) | payer MEDICARE, MEDICAID ==
[2017-09-16 12:44] LABS: BASO % 0.3 % (0.0-1.0); EOS % 0.6 % (0.0-3.0); HEMATOCRIT 22.8 % (36.0-47.0); IMMATURE GRANULOCYTE % 0.3 % (0-3.0); LYMPH # 1.4 10^3/uL (1.5-4.5); MEAN CORPUSCULAR HEMOGLOBIN 20.7 pg (27.0-33.0); MEAN CORPUSCULAR HGB CONC 26.8 g/dl (32.0-36.5); MEAN CORPUSCULAR VOLUME 77.3 fl (80.0-96.0); MONO % 15.5 % (0.0-5.0); NEUTROPHILS # 3.8 10^3/uL (1.8-7.7); NEUTROPHILS % 61.3 % (36.0-66.0); PLATELET COUNT, AUTOMATED 200 10^3/uL (150-450); RED BLOOD COUNT 2.95 10^6/uL (4.00-5.40); RED CELL DISTRIBUTION WIDTH 19.4 % (11.5-14.5); WHITE BLOOD COUNT 6.3 10^3/uL (4.0-10.0)
[2017-09-16 12:49] LABS: HEMOGLOBIN 6.1 g/dl (12.0-15.5)
[2017-09-16 12:55] LABS: INR 1.02; PROTHROMBIN TIME 13.6 SECONDS (12.4-14.5)
[2017-09-16 13:09] LABS: ALBUMIN 3.5 GM/DL (3.2-5.2); ALBUMIN/GLOBULIN RATIO 0.83 (1.00-1.93); ALKALINE PHOSPHATASE 86 U/L (45-117); ALT/SGPT 17 U/L (12-78); ANION GAP 5 MEQ/L (8-16); AST/SGOT 16 U/L (7-37); BILIRUBIN,TOTAL 0.3 MG/DL (0.2-1.0); BLOOD UREA NITROGEN 17 MG/DL (7-18); CALCIUM LEVEL 8.3 MG/DL (8.8-10.2); CARBON DIOXIDE LEVEL 28 MEQ/L (21-32); CHLORIDE LEVEL 106 MEQ/L (98-107); CK-MB VALUE MASS < 1.0 NG/ML (<3.6); CPK CREATINE PHOSPHOKINASE 65 U/L (26-192); CREATININE FOR GFR 0.76 MG/DL (0.55-1.30); GLOMERULAR FILTRATION RATE > 60.0 (>45); GLUCOSE, FASTING 197 MG/DL (70-100); MB/CK RELATIVE INDEX 1.53 (< OR =4); POTASSIUM SERUM 3.7 MEQ/L (3.5-5.1); SODIUM LEVEL 139 MEQ/L (136-145); TOTAL PROTEIN 7.7 GM/DL (6.4-8.2); TROPONIN I < 0.02 NG/ML (< 0.10)
[2017-09-16] MEDS: PANTOPRAZOLE 40MG INJ (PROTONIX) (C9113) IV ×2 (13:43→22:07)
[2017-09-16 15:31] LABS: REASON FOR REVIEW ANEMIA / RBC MORPH; SLIDE REVIEW Report; SOURCE PERIPHERAL SMEAR
[2017-09-16 15:33] LABS: FERRITIN 3 NG/ML (8-252); IRON (FE) 13 UG/DL (50-170); LDH LACTATE DEHYDROGENASE 294 U/L (84-246); PERCENT SATURATION 2.9 % (13.2-45.0); TOTAL IRON BINDING CAPACITY 453 UG/DL (250-450)
[2017-09-16 15:40] LABS: RETICULOCYTE # 67.7 10^9/L (17-77); RETICULOCYTE % 2.3 % (0.5-1.5)
[2017-09-16 15:42] LABS: POSITIVE MORPH POS FLAG
[2017-09-16] MEDS: LISINOPRIL 5 MG TAB PO (15:43)
[2017-09-16] MEDS: MULTIVITAMINS/MINERALS THERAP 1 TAB PO (15:49)
[2017-09-16 16:21] LABS: VITAMIN B12 LEVEL 660 PG/ML (247-911)
[2017-09-16 16:22] LABS: CK-MB VALUE MASS < 1.0 NG/ML (<3.6); CPK CREATINE PHOSPHOKINASE 60 U/L (26-192); MB/CK RELATIVE INDEX 1.66 (< OR =4); TROPONIN I < 0.02 NG/ML (< 0.10)
[2017-09-16] MEDS: BISACODYL 5 MG TAB PO (17:30)
[2017-09-16] MEDS: SUCRALFATE 1 GM TAB PO ×2 (17:30→22:06)
[2017-09-16] MEDS ORDERED: ONDANSETRON 4MG/2ML VIAL (J2405) IV (17:30)
[2017-09-16 17:44] LABS: HEMATOCRIT 24.9 % (36.0-47.0)
[2017-09-16 18:07] LABS: CK-MB VALUE MASS < 1.0 NG/ML (<3.6); CPK CREATINE PHOSPHOKINASE 62 U/L (26-192); MB/CK RELATIVE INDEX 1.61 (< OR =4); TROPONIN I < 0.02 NG/ML (< 0.10)
[2017-09-16 18:08] LABS: IMMEDIATE SPIN CROSSMATCH 1 2
[2017-09-16] MEDS: GOLYTELY SOLN 4000 ML BTL PO (18:30)
[2017-09-16 22:24] LABS: IMMEDIATE SPIN CROSSMATCH 1 2
[2017-09-17 00:51] LABS: HEMATOCRIT 31.2 % (36.0-47.0)
[2017-09-17 00:53] LABS: HEMOGLOBIN 9.3 g/dl (12.0-15.5)
[2017-09-17 01:03] LABS: CK-MB VALUE MASS < 1.0 NG/ML (<3.6); CPK CREATINE PHOSPHOKINASE 67 U/L (26-192); MB/CK RELATIVE INDEX 1.49 (< OR =4); TROPONIN I < 0.02 NG/ML (< 0.10)
[2017-09-17 05:48] LABS: HEMATOCRIT 32.4 % (36.0-47.0); HEMOGLOBIN 9.5 g/dl (12.0-15.5); MEAN CORPUSCULAR HGB CONC 29.3 g/dl (32.0-36.5); MEAN CORPUSCULAR VOLUME 78.5 fl (80.0-96.0); PLATELET COUNT, AUTOMATED 174 10^3/uL (150-450); RED BLOOD COUNT 4.13 10^6/uL (4.00-5.40); RED CELL DISTRIBUTION WIDTH 17.7 % (11.5-14.5); WHITE BLOOD COUNT 5.9 10^3/uL (4.0-10.0)
[2017-09-17 06:03] LABS: INR 1.13; PROTHROMBIN TIME 14.7 SECONDS (12.4-14.5)
[2017-09-17 06:12] LABS: ALBUMIN 3.6 GM/DL (3.2-5.2); ALBUMIN/GLOBULIN RATIO 0.84 (1.00-1.93); ALKALINE PHOSPHATASE 93 U/L (45-117); ALT/SGPT 26 U/L (12-78); ANION GAP 7 MEQ/L (8-16); AST/SGOT 33 U/L (7-37); BILIRUBIN,TOTAL 1.1 MG/DL (0.2-1.0); BLOOD UREA NITROGEN 9 MG/DL (7-18); CALCIUM LEVEL 8.4 MG/DL (8.8-10.2); CARBON DIOXIDE LEVEL 26 MEQ/L (21-32); CHLORIDE LEVEL 107 MEQ/L (98-107); CREATININE FOR GFR 0.66 MG/DL (0.55-1.30); GLOMERULAR FILTRATION RATE > 60.0 (>45); GLUCOSE, FASTING 140 MG/DL (70-100); MAGNESIUM LEVEL 2.4 MG/DL (1.8-2.4); POTASSIUM SERUM 3.9 MEQ/L (3.5-5.1); SODIUM LEVEL 140 MEQ/L (136-145); TOTAL PROTEIN 7.9 GM/DL (6.4-8.2)
[2017-09-17] MEDS: SUCRALFATE 1 GM TAB PO ×4 (07:30→21:31)
[2017-09-17] MEDS ORDERED: LIDOCAINE 2% INJ 100 MG/5 ML SDV (FOR ANES.) As Ordered (07:38)
[2017-09-17] MEDS ORDERED: PROPOFOL 200 MG/20 ML VIAL As Ordered ×3 (07:38→13:42)
[2017-09-17] MEDS: PANTOPRAZOLE 40MG INJ (PROTONIX) (C9113) IV ×2 (09:00→21:31)
[2017-09-17] MEDS: MULTIVITAMINS/MINERALS THERAP 1 TAB PO (09:00)
[2017-09-17] MEDS: LISINOPRIL 5 MG TAB PO (10:01)
[2017-09-17 11:27] LABS: HEMATOCRIT 32.2 % (36.0-47.0); HEMOGLOBIN 9.7 g/dl (12.0-15.5)
[2017-09-17] MEDS ORDERED: ESMOLOL INJ 100MG/10ML VIAL As Ordered (13:15)
[2017-09-17 17:49] LABS: HEMATOCRIT 30.8 % (36.0-47.0); HEMOGLOBIN 9.1 g/dl (12.0-15.5)
[2017-09-17 23:03] LABS: HEMATOCRIT 33.3 % (36.0-47.0); HEMOGLOBIN 9.6 g/dl (12.0-15.5)
[2017-09-18 05:52] LABS: INR 1.05; PROTHROMBIN TIME 13.8 SECONDS (12.4-14.5)
[2017-09-18 05:55] LABS: ALBUMIN/GLOBULIN RATIO 0.94 (1.00-1.93); ALKALINE PHOSPHATASE 92 U/L (45-117); ALT/SGPT 32 U/L (12-78); ANION GAP 6 MEQ/L (8-16); AST/SGOT 21 U/L (7-37); BILIRUBIN,TOTAL 0.4 MG/DL (0.2-1.0); BLOOD UREA NITROGEN 18 MG/DL (7-18); CARBON DIOXIDE LEVEL 29 MEQ/L (21-32); CHLORIDE LEVEL 107 MEQ/L (98-107); CREATININE FOR GFR 0.74 MG/DL (0.55-1.30); GLOMERULAR FILTRATION RATE > 60.0 (>45); GLUCOSE, FASTING 175 MG/DL (70-100); POTASSIUM SERUM 4.2 MEQ/L (3.5-5.1); SODIUM LEVEL 142 MEQ/L (136-145); TOTAL PROTEIN 6.2 GM/DL (6.4-8.2)
[2017-09-18 06:45] LABS: HEMATOCRIT 30.1 % (36.0-47.0); HEMOGLOBIN 8.9 g/dl (12.0-15.5); MEAN CORPUSCULAR HEMOGLOBIN 23.4 pg (27.0-33.0); MEAN CORPUSCULAR HGB CONC 29.6 g/dl (32.0-36.5); MEAN CORPUSCULAR VOLUME 79.2 fl (80.0-96.0); PLATELET COUNT, AUTOMATED 144 10^3/uL (150-450); RED CELL DISTRIBUTION WIDTH 18.8 % (11.5-14.5); WHITE BLOOD COUNT 6.9 10^3/uL (4.0-10.0)
[2017-09-18 07:20] LABS: POS COUNT POS FLAG
[2017-09-18] MEDS: SUCRALFATE 1 GM TAB PO ×4 (07:52→20:46)
[2017-09-18 08:06] LABS: HAPTOGLOBIN 12 mg/dL (34-200)
[2017-09-18] MEDS: LISINOPRIL 5 MG TAB PO (09:14)
[2017-09-18] MEDS: MULTIVITAMINS/MINERALS THERAP 1 TAB PO (09:14)
[2017-09-18] MEDS: PANTOPRAZOLE 40MG INJ (PROTONIX) (C9113) IV ×2 (09:14→20:46)
[2017-09-18 15:06] LABS: HEMATOCRIT 30.4 % (36.0-47.0); HEMOGLOBIN 8.8 g/dl (12.0-15.5); MEAN CORPUSCULAR HEMOGLOBIN 23.2 pg (27.0-33.0); MEAN CORPUSCULAR HGB CONC 28.9 g/dl (32.0-36.5); MEAN CORPUSCULAR VOLUME 80.2 fl (80.0-96.0); PLATELET COUNT, AUTOMATED 152 10^3/uL (150-450); RED BLOOD COUNT 3.79 10^6/uL (4.00-5.40); RED CELL DISTRIBUTION WIDTH 19.3 % (11.5-14.5); WHITE BLOOD COUNT 6.3 10^3/uL (4.0-10.0)
[2017-09-19 05:39] LABS: HEMATOCRIT 28.8 % (36.0-47.0); HEMOGLOBIN 8.3 g/dl (12.0-15.5); MEAN CORPUSCULAR HGB CONC 28.8 g/dl (32.0-36.5); MEAN CORPUSCULAR VOLUME 79.8 fl (80.0-96.0); PLATELET COUNT, AUTOMATED 145 10^3/uL (150-450); RED BLOOD COUNT 3.61 10^6/uL (4.00-5.40); RED CELL DISTRIBUTION WIDTH 19.3 % (11.5-14.5); WHITE BLOOD COUNT 6.3 10^3/uL (4.0-10.0)
[2017-09-19 05:40] LABS: POS COUNT POS FLAG
[2017-09-19 05:46] LABS: INR 1.07
[2017-09-19 05:52] LABS: ALBUMIN 2.9 GM/DL (3.2-5.2); ALBUMIN/GLOBULIN RATIO 0.81 (1.00-1.93); ALKALINE PHOSPHATASE 86 U/L (45-117); ALT/SGPT 23 U/L (12-78); ANION GAP 4 MEQ/L (8-16); AST/SGOT 13 U/L (7-37); BILIRUBIN,TOTAL 0.4 MG/DL (0.2-1.0); BLOOD UREA NITROGEN 16 MG/DL (7-18); CALCIUM LEVEL 7.7 MG/DL (8.8-10.2); CARBON DIOXIDE LEVEL 29 MEQ/L (21-32); CHLORIDE LEVEL 108 MEQ/L (98-107); CREATININE FOR GFR 0.61 MG/DL (0.55-1.30); GLOMERULAR FILTRATION RATE > 60.0 (>45); GLUCOSE, FASTING 135 MG/DL (70-100); SODIUM LEVEL 141 MEQ/L (136-145); TOTAL PROTEIN 6.5 GM/DL (6.4-8.2)
[2017-09-19] MEDS: SUCRALFATE 1 GM TAB PO ×4 (08:50→21:58)
[2017-09-19] MEDS: PANTOPRAZOLE 40MG INJ (PROTONIX) (C9113) IV ×2 (08:50→20:33)
[2017-09-19] MEDS: LISINOPRIL 5 MG TAB PO (08:51)
[2017-09-19] MEDS: MULTIVITAMINS/MINERALS THERAP 1 TAB PO (08:51)
[2017-09-19 10:15] LABS: IMMEDIATE SPIN CROSSMATCH 1 1
[2017-09-19 15:43] LABS: HEMATOCRIT 34.5 % (36.0-47.0); HEMOGLOBIN 10.2 g/dl (12.0-15.5); MEAN CORPUSCULAR HEMOGLOBIN 23.8 pg (27.0-33.0); MEAN CORPUSCULAR HGB CONC 29.6 g/dl (32.0-36.5); MEAN CORPUSCULAR VOLUME 80.4 fl (80.0-96.0); PLATELET COUNT, AUTOMATED 172 10^3/uL (150-450); RED BLOOD COUNT 4.29 10^6/uL (4.00-5.40); RED CELL DISTRIBUTION WIDTH 18.6 % (11.5-14.5); WHITE BLOOD COUNT 6.8 10^3/uL (4.0-10.0)
[2017-09-20 05:55] LABS: HEMOGLOBIN 9.7 g/dl (12.0-15.5); MEAN CORPUSCULAR HEMOGLOBIN 23.7 pg (27.0-33.0); MEAN CORPUSCULAR HGB CONC 29.4 g/dl (32.0-36.5); MEAN CORPUSCULAR VOLUME 80.5 fl (80.0-96.0); PLATELET COUNT, AUTOMATED 147 10^3/uL (150-450); RED CELL DISTRIBUTION WIDTH 18.6 % (11.5-14.5); WHITE BLOOD COUNT 6.5 10^3/uL (4.0-10.0)
[2017-09-20] MEDS: ACETAMINOPHEN TAB 650MG DOSE (2X325MG) PO (06:05)
[2017-09-20 06:09] LABS: INR 1.03; PROTHROMBIN TIME 13.6 SECONDS (12.4-14.5)
[2017-09-20 06:22] LABS: ALBUMIN 3.1 GM/DL (3.2-5.2); ALBUMIN/GLOBULIN RATIO 0.78 (1.00-1.93); ALKALINE PHOSPHATASE 97 U/L (45-117); ALT/SGPT 23 U/L (12-78); ANION GAP 3 MEQ/L (8-16); AST/SGOT 14 U/L (7-37); BILIRUBIN,TOTAL 0.3 MG/DL (0.2-1.0); BLOOD UREA NITROGEN 15 MG/DL (7-18); CARBON DIOXIDE LEVEL 31 MEQ/L (21-32); CHLORIDE LEVEL 107 MEQ/L (98-107); CREATININE FOR GFR 0.68 MG/DL (0.55-1.30); GLOMERULAR FILTRATION RATE > 60.0 (>45); GLUCOSE, FASTING 163 MG/DL (70-100); POTASSIUM SERUM 4.1 MEQ/L (3.5-5.1); SODIUM LEVEL 141 MEQ/L (136-145); TOTAL PROTEIN 7.1 GM/DL (6.4-8.2)
[2017-09-20] MEDS: SUCRALFATE 1 GM TAB PO ×2 (07:58→12:07)
[2017-09-20] MEDS: PANTOPRAZOLE 40MG INJ (PROTONIX) (C9113) IV (07:58)
[2017-09-20] MEDS: LISINOPRIL 5 MG TAB PO (07:59)
[2017-09-20] MEDS: MULTIVITAMINS/MINERALS THERAP 1 TAB PO (07:59)
[2017-09-20 12:23] LABS: BASO % 0.4 % (0.0-1.0); EOS # 0.1 10^3/uL (0.0-0.50); EOS % 1.6 % (0.0-3.0); HEMATOCRIT 34.3 % (36.0-47.0); HEMOGLOBIN 10.1 g/dl (12.0-15.5); IMMATURE GRANULOCYTE % 0.4 % (0-3.0); LYMPH # 1.1 10^3/uL (1.5-4.5); LYMPH % 19.6 % (24.0-44.0); MEAN CORPUSCULAR HEMOGLOBIN 23.8 pg (27.0-33.0); MEAN CORPUSCULAR HGB CONC 29.4 g/dl (32.0-36.5); MEAN CORPUSCULAR VOLUME 80.9 fl (80.0-96.0); MONO # 0.9 10^3/uL (0.0-0.8); NEUTROPHILS # 3.6 10^3/uL (1.8-7.7); PLATELET COUNT, AUTOMATED 148 10^3/uL (150-450); RED BLOOD COUNT 4.24 10^6/uL (4.00-5.40); RED CELL DISTRIBUTION WIDTH 18.6 % (11.5-14.5); WHITE BLOOD COUNT 5.7 10^3/uL (4.0-10.0)
== END 2017-09-20 14:42 | disposition home or self-care (01) | DRG 378 ==
LOC: M PCU 09-17 01:55 → M MSPAV 09-19 19:50 → M ED 12:03 → M ED INP 17:22 → M PCU 19:53
PROC: 0DJ08ZZ Inspection of Upper Intestinal Tract, Via Natural or Artificial Opening Endoscopic (ICD-10-PCS; principal; 2017-09-17 12:31)
PROC: 0W3P8ZZ Control Bleeding in Gastrointestinal Tract, Via Natural or Artificial Opening Endoscopic (ICD-10-PCS; 2017-09-17 12:31)
PROC: 30233N1 Transfusion of Nonautologous Red Blood Cells into Peripheral Vein, Percutaneous Approach (ICD-10-PCS; 2017-09-17 12:31)
DX: K92.2 Gastrointestinal hemorrhage, unspecified (principal); D62 Acute posthemorrhagic anemia; I50.32 Chronic diastolic (congestive) heart failure; E66.01 Morbid (severe) obesity due to excess calories; D50.9 Iron deficiency anemia, unspecified; K64.4 Residual hemorrhoidal skin tags; I11.0 Hypertensive heart disease with heart failure; K64.8 Other hemorrhoids; K57.30 Diverticulosis of large intestine without perforation or abscess without bleeding; K55.20 Angiodysplasia of colon without hemorrhage; Q27.33 Arteriovenous malformation of digestive system vessel; Z88.0 Allergy status to penicillin; Z88.2 Allergy status to sulfonamides; Z88.1 Allergy status to other antibiotic agents; Z90.710 Acquired absence of both cervix and uterus; Z90.49 Acquired absence of other specified parts of digestive tract; Z90.722 Acquired absence of ovaries, bilateral; Z79.82 Long term (current) use of aspirin; Z79.899 Other long term (current) drug therapy; Z95.2 Presence of prosthetic heart valve; Z68.35 Body mass index [BMI] 35.0-35.9, adult

== ENCOUNTER → 2017-09-27 | Outpatient (REF) | payer MEDICARE ==
[2017-09-27 13:41] LABS: BASO % 0.5 % (0.0-1.0); EOS # 0.1 10^3/uL (0.0-0.50); EOS % 1.2 % (0.0-3.0); HEMATOCRIT 35.4 % (36.0-47.0); IMMATURE GRANULOCYTE % 0.4 % (0-3.0); LYMPH # 1.2 10^3/uL (1.5-4.5); LYMPH % 15.2 % (24.0-44.0); MEAN CORPUSCULAR HGB CONC 28.2 g/dl (32.0-36.5); MEAN CORPUSCULAR VOLUME 81.6 fl (80.0-96.0); MONO # 1.2 10^3/uL (0.0-0.8); MONO % 15.9 % (0.0-5.0); NEUTROPHILS # 5.1 10^3/uL (1.8-7.7); NEUTROPHILS % 66.8 % (36.0-66.0); PLATELET COUNT, AUTOMATED 176 10^3/uL (150-450); RED BLOOD COUNT 4.34 10^6/uL (4.00-5.40); RED CELL DISTRIBUTION WIDTH 18.9 % (11.5-14.5); WHITE BLOOD COUNT 7.6 10^3/uL (4.0-10.0)
== END ==
LOC: M SFHCADAM 13:07
DX: K92.2 Gastrointestinal hemorrhage, unspecified (principal)
CPT/HCPCS: 85025

== ENCOUNTER → 2017-10-22 | Outpatient (REF) | payer MEDICARE ==
[2017-10-22 13:56] LABS: FERRITIN 5 NG/ML (8-252); IRON (FE) 32 UG/DL (50-170); PERCENT SATURATION 7.8 % (13.2-45.0); TOTAL IRON BINDING CAPACITY 411 UG/DL (250-450)
[2017-10-23 08:06] LABS: HAPTOGLOBIN 22 mg/dL (34-200)
== END ==
LOC: M LAB REF 13:12
DX: D50.9 Iron deficiency anemia, unspecified (principal)
CPT/HCPCS: 83010

== ENCOUNTER → 2018-09-30 | Outpatient (CLI) | payer MEDICARE, MEDICAID ==
[~2018-09-30] MED LIST changes: +ACET65TA OR; -ACETAMINOPHEN 325 MG TAB As Ordered; -ACETAMINOPHEN TAB 650MG DOSE (2X325MG) PO; +ALDA25TA2 OR; +ASPI325T; +ASPI325T OR; +ASPI81TA26 PO; +ASPI81TA85 PO; +BISO5TAB5 PO; +CARA1TAB6 PO; +COLA100C2 OR; +DOXY100T OR; +DRIS50003 PO; +FERR1TAB8 PO; +FERR325T OR; +FURO20TA2 PO; +FURO40TA2 PO; +K-TA1TAB PO; +KLOR10TA76 PO; +LIPI20TA OR; +LISI-542 PO; +LOPR50TA OR; +LOSA25TA14 PO; +MULTIVIT OR; +OMEP20CA3 PO; +OMEP40CA2 PO; +PEG1POW PO; +PERC5TAB8 OR; +PERC7.5T8 OR; +POTA20TA2 OR; +PRIL40CA OR; +PROHANCE 279.3MG/ML 15ML VIAL (A9576) As Ordered ONE; +PROT1TAB2; +PROT1TAB2 PO; +SENO8.6T5 OR; +SPIR-10 PO; +SUCR1TA PO; +SUCR1TAB56 OR; +TRAM50TA2 OR; +VITA500C OR; +VITA500T88 PO; +VITMTA PO; +ZANT150T OR; +ZEBE1TAB OR; +atenolol PO; -diphenhydrAMINE 25 MG CAP As Ordered; -diphenhydrAMINE 25 MG CAP PO; +protonix; +protonix PO
--- NOTE | 2018-10-13 17:11 | REP ---
MRCP: MRCP exam is accomplished utilizing multiple heavily T2-weighted sequences in the axial and coronal planes. The patient has had a prior cholecystectomy. There is mild prominence of central intrahepatic bile ducts. The common hepatic and common bile ducts are mildly prominent in caliber with maximum diameter 11 mm. There is no evidence of choledocholithiasis and no evidence of common bile duct stricture. Pancreatic duct is slightly dilated in the region of the pancreatic head, measuring 4 mm in diameter. The remainder of the pancreatic duct in the body and tail of the pancreas is normal in caliber. IMPRESSION: Status post cholecystectomy. Prominent diameter of common hepatic and common bile duct, maximally 11 mm with no evidence of choledocholithiasis or stricture. There is slight dilatation of the pancreatic duct in the region of the pancreatic head measuring 4 mm. Electronically Signed by Baltazar Escamilla MD 10/17/2018 04:59 P
--- NOTE | 2018-10-13 17:22 | REP ---
MRI PANCREAS: Comparison CT [facility] 10/07/2017 which showed a 5 mm cyst in the head of the pancreas. TECHNIQUE: Multiple sequences were obtained in the axial and coronal planes prior to and following the intravenous administration of 15 mL ProHance. I do not see a cyst or mass of the pancreas. There is no pancreatic duct dilatation. Correlating with the prior CT of 10/07/2017 the suspected cyst appears to have represented a portion of an accessory duct in the head of the pancreas. The patient has had a prior cholecystectomy. There is mild prominence of the common bile duct as expected. Visualized liver, spleen, left adrenal are unremarkable. A subcentimeter cyst is seen in the lower pole of the left kidney. I do not see evidence of lymphadenopathy or free fluid in the visualized abdomen. IMPRESSION: No evidence of mass or cyst on the pancreas. No pancreatic duct dilatation. Correlating with the prior CT of 10/07/2017 the suspected cyst appears to have represented a portion of an accessory duct in the head of the pancreas. Electronically Signed by Baltazar Escamilla MD 10/17/2018 04:59 P
== END ==
LOC: M RAD 16:25
PROVIDERS: ATTEND Internal Medicine Gastroenterology
DX: D50.9 Iron deficiency anemia, unspecified (principal); Z87.738 Personal history of other specified (corrected) congenital malformations of digestive system; Z90.49 Acquired absence of other specified parts of digestive tract
CPT/HCPCS: 74181; 74183; A9576

== ENCOUNTER → 2018-10-20 | Outpatient (CLI) | payer MEDICARE, MEDICAID ==
[~2018-10-20] MED LIST changes: -PROHANCE 279.3MG/ML 15ML VIAL (A9576) As Ordered ONE
[2018-10-20 14:30] LABS: PARTIAL THROMBOPLASTIN TIME 30.3 SECONDS (25.4-37.6); PROTHROMBIN TIME 13.3 SECONDS (12.1-14.4)
[2018-10-20 14:42] LABS: ALBUMIN 3.6 GM/DL (3.2-5.2); BILIRUBIN,DIRECT 0.2 MG/DL (0.0-0.2); BILIRUBIN,TOTAL 0.4 MG/DL (0.2-1.0); TOTAL PROTEIN 7.2 GM/DL (6.4-8.2)
[2018-10-25 10:39] LABS: IgA SERUM (part of Subclasses) 191 mg/dL (87-352); PANCREATIC ELASTASE STOOL >500 (>200); TISSUE TRANSGLUTAMINASE IgA <2 U/mL (0-3)
== END ==
LOC: M LAB 13:13
PROVIDERS: ATTEND Internal Medicine Gastroenterology
DX: D50.9 Iron deficiency anemia, unspecified (principal)

== ENCOUNTER → 2018-11-01 | Outpatient (REF) | payer MEDICARE ==
[~2018-11-01] MED LIST changes: -OMEP20CA3 PO; +OMEP20CA4 PO
[2018-11-01 19:42] LABS: ALBUMIN 3.6 GM/DL (3.2-5.2); ALT/SGPT 28 U/L (12-78); BILIRUBIN,TOTAL 0.4 MG/DL (0.2-1.0); BLOOD UREA NITROGEN 12 MG/DL (7-18); CALCIUM LEVEL 8.6 MG/DL (8.8-10.2); CARBON DIOXIDE LEVEL 33 MEQ/L (21-32); CHLORIDE LEVEL 100 MEQ/L (98-107); CHOLESTEROL LEVEL 120 MG/DL (<200); CREATININE FOR GFR 0.67 MG/DL (0.55-1.30); GLOMERULAR FILTRATION RATE > 60.0 (>45); GLUCOSE, FASTING 270 MG/DL (70-100); HDL CHOLESTEROL 40 MG/DL (>40); LDL CHOLESTEROL 57 MG/DL (<100); NON-HDL-C 80 MG/DL; SODIUM LEVEL 139 MEQ/L (136-145); TOTAL PROTEIN 7.2 GM/DL (6.4-8.2); TRIGLYCERIDES LEVEL 113 MG/DL (<150)
[2018-11-01 19:58] LABS: APPEARANCE, URINE HAZY (CLEAR); BACTERIA, URINE AUTO 1+ (NEGATIVE); BILIRUBIN, URINE AUTO NEGATIVE (NEGATIVE); BLOOD, URINE BLOOD NEGATIVE (NEGATIVE); COLOR, URINE YELLOW (YELLOW); GLUCOSE, URINE (UA) AUTO 3+ mg/dL (NEGATIVE); KETONE, URINE AUTO NEGATIVE (NEGATIVE); LEUKOCYTE ESTERASE, URINE AUTO 2+ (NEGATIVE); MUCUS, URINE SMALL (NEGATIVE); NITRITE, URINE AUTO NEGATIVE (NEGATIVE); PROTEIN, URINE AUTO NEGATIVE (NEGATIVE); RBC, URINE AUTO 2 /HPF (0-3); SPECIFIC GRAVITY URINE AUTO 1.026 (1.002-1.035); SQUAMOUS EPITHELIAL CELL UR AU 8 /HPF (0-6); UROBILINOGEN, URINE AUTO 0.2 mg/dL (0.0-2.0); WBC, URINE AUTO 6 /HPF (0-3)
[2018-11-01 20:00] LABS: MAU/CREAT RATIO 10.9 MCG/MG (0.0-30.0)
[2018-11-01 20:18] LABS: HEMOGLOBIN A1c 11.5 %
== END ==
LOC: M SFHCADAM 14:06
PROVIDERS: ATTEND Physician Assistant Medical
DX: R06.83 Snoring (principal); R73.01 Impaired fasting glucose; E78.5 Hyperlipidemia, unspecified
CPT/HCPCS: 80053; 80061; 81001; 82043; 83036; G0463

== ENCOUNTER → 2019-02-14 | Outpatient (CLI) | payer MEDICARE, MEDICAID ==
[~2019-02-14] MED LIST changes: -BISO5TAB5 PO; +BISO5TAB9 PO; -OMEP40CA2 PO; +OMEP40CA97 PO
--- NOTE | 2019-02-14 11:27 | REP ---
BILATERAL MAMMOGRAM WITH 3D TOMOSYNTHESIS: FAMILY HISTORY: Sister with breast cancer at age 56 and sister with breast cancer at age 60. Tyrer-zick lifetime risk of breast cancer 8.3%. COMPARISON: 07/29/2015 and 07/23/2015. There is again moderate fibroglandular tissue bilaterally. Stable intramammary lymph node is seen in the upper outer quadrant of the right breast. There are grouped tiny calcifications posteriorly in the upper left breast only seen on the MLO view. These were present on the prior study and appear to have increased in number. They are not seen on the mL view. IMPRESSION: BIRADS 0: BI-RADS/ACR category 0 mammogram, Incomplete: Need additional imaging evaluation and/or prior mammograms for comparison. Grouping of tiny microcalcifications posteriorly and superiorly in the left breast on the MLO view. These appear to have increased in number since the prior study did recommend stereotactic biopsy of these calcifications. Apparently that was not performed. Given the increased number of calcifications since the prior study, I would recommend re-evaluation with magnification views. ACR 0 in complete. This mammogram was interpreted with the aid of an FDA-approved computer-aided detection system. A. Negative x-ray reports should not delay biopsy if a dominant or clinically suspicious mass is present. B. Four to eight percent of cancers are not identified by x-ray. C. Adenosis and dense breasts may obscure an underlying neoplasm. The patient states she/he had a clinical breast exam in February 2019. The patient letter being requested is M0.
--- NOTE | 2019-02-16 09:37 | DEXA ---
AP SPINE L1 - L4 1.272 0.6 1.5 LT FEMUR TOTAL 0.922 -0.7 -0.4 LT NECK 0.781 -1.9 -1.3 RT FEMUR TOTAL 0.914 -0.7 -0.5 RT NECK 0.750 -2.1 -1.5 TOTAL BODY TOTAL OTHER COMMENTS: Normal bone densitometry of the spine. There is low bone density of the hips. The density of the spine has decreased 3.1% since 07/23/2015. The density of the left hip has decreased 3.6% since 07/23/2015. The density of the right hip has increased 2.6% since 07/23/2015. The decreased density of the spine does represent a significant change. The decreased density of the left hip does represent a significant change. The increased density of the right hip does represent a significant change. FOLLOW-UP: Recommendation for the next bone density exam: 2 years. ANTONIETA
== END ==
LOC: M WHC 09:37
PROVIDERS: ATTEND Physician Assistant Medical
DX: Z01.419 Encounter for gynecological examination (general) (routine) without abnormal findings (principal); Z12.31 Encounter for screening mammogram for malignant neoplasm of breast; Z78.0 Asymptomatic menopausal state; Z80.3 Family history of malignant neoplasm of breast; R92.1 Mammographic calcification found on diagnostic imaging of breast
CPT/HCPCS: 77063; 77067; 77080; 87210; G0101

== ENCOUNTER → 2019-02-22 | Outpatient (CLI) | payer MEDICARE, MEDICAID ==
--- NOTE | 2019-02-22 17:25 | REP ---
Digital diagnostic unilateral left breast mammography with CAD. History: Screening mammography February 14, 2019 was BIRADS category zero because of a grouping of microcalcifications posteriorly and superiorly in the left breast. Comparison mammography is also reviewed from July 28 and July 23, 2015. Findings: Magnified focal spot compression views are obtained along with a laterally exaggerated craniocaudad view. The micro calcific grouping is confirmed in the posterior aspect upper outer quadrant left breast. These have increased in number. There are polymorphic as before and must be considered somewhat suspicious. They occupy a grouping approximately 6 mm in diameter. There is some questionable spiculation on the MLO and magnified view. Calcifications are apparent on the true MLO view although there is no evidence of nodularity or spiculation on this view or on the laterally exaggerated CC view. Impression: Suspicious micro calcific grouping upper outer quadrant left breast with progression in number of calcifications since the 2016 study. Malignancy cannot be excluded. Histologic sampling is recommended. BIRADS category four suspicious left breast mammogram. Recommend stereotactic needle biopsy. BIRADS 4: BI-RADS/ACR category 4 mammogram. Suspicious Abnormality - biopsy should be considered. This mammogram was interpreted with the aid of an FDA-approved computer-aided detection system. The patient states she had a clinical breast exam in February 26, 2019 The patient letter being requested is m4. Electronically Signed by Israel Anderson MD 02/22/2019 05:48 P
== END ==
LOC: M RAD 11:46
PROVIDERS: ATTEND Physician Assistant Medical
DX: R92.2 Inconclusive mammogram (principal)

== ENCOUNTER → 2019-03-22 | Outpatient (CLI) | payer MEDICARE, MEDICAID ==
[~2019-03-22] MED LIST changes: +JANU100T PO; +LIDOCAINE 1% MDV 20ML VIAL As Ordered ONE; +METF-791 PO
[2019-03-22 10:27] VITALS: BP 141/77
--- NOTE | 2019-03-23 12:09 | REP ---
Focused left breast sonography: History: The patient was referred for stereotactic needle biopsy of a posteriorly positioned microcalcific grouping in the left breast upper outer quadrant. The stereotactic needle biopsy failed because of inability to project the calcifications in the field of view for stereotactic needle biopsy. Since the calcifications were tightly grouped, sonographic evaluation was performed at my request in an attempt to identify the target for ultrasound-guided needle biopsy and clip placement. Sonographic findings: The left breast was scanned from 1 o'clock to 3 o'clock. Heterogeneous fibroglandular background echotexture was observed. We were not able to identify a grouping of echogenic foci or an area of acoustic shadowing to correlate with the mammographic findings. Impression: We were not able to identify the mammographically visible calcific target by ultrasound. The stereotactic needle biopsy failed because of inability to project the area of interest in the field for needle biopsy. Needle localization directed excisional biopsy could be considered. Electronically Signed by Israel Anderson MD 03/23/2019 12:29 P
== END ==
LOC: M IRPRO 10:08
PROVIDERS: ATTEND Surgery
DX: R92.0 Mammographic microcalcification found on diagnostic imaging of breast (principal)

== ENCOUNTER 2019-04-18 07:37 | Observation (INO) | payer MEDICARE, MEDICAID ==
[~2019-04-18] VITALS: Ht 157.5 cm; Wt 86.4 kg
[~2019-04-18 07:37] MED LIST changes: -LIDOCAINE 1% MDV 20ML VIAL As Ordered ONE; +LIDOCAINE 2% INJ 100 MG/5 ML SDV (FOR ANES.) As Ordered ONE; +LIDOCAINE 5% (LIDODERM) PATCH TD ONE; +LR 1,000 ML IV ONE; +OMEP-172 PO; -OMEP20CA4 PO; +ONDANSETRON 4MG/2ML VIAL (J2405) As Ordered ONE; +PROPOFOL 200 MG/20 ML VIAL As Ordered ONE; +dexameTHASONE 4 MG/ML 1ML VIAL (J1100) As Ordered ONE
[2019-04-18] MEDS ORDERED: SITagliptin 50 MG TAB (JANUVIA) PO SCH (09:00)
[2019-04-18] MEDS ORDERED: metFORMIN XR 500MG TAB *GLUCOPHAGE XR PO SCH (09:00)
[2019-04-18] MEDS ORDERED: LIDOCAINE 1% MDV 20ML VIAL As Ordered ONE (09:07)
[2019-04-18] MEDS ORDERED: fentaNYL 100 MCG/2 ML INJECTION (J3010) As Ordered ONE (10:07)
[2019-04-18] MEDS ORDERED: MIDAZOLAM INJ 5 MG/ML VIAL (J2250) As Ordered ONE (10:07)
[2019-04-18] MEDS ORDERED: KETAMINE INJ 500 MG/5 ML VIAL As Ordered ONE (10:16)
[2019-04-18] MEDS ORDERED: KETOROLAC 60 MG/2 ML VIAL (J1885) As Ordered ONE (11:57)
[2019-04-18] MEDS: LIDOCAINE 1% SDV INJ 30 ML VIAL As Ordered ONE (12:10)
[2019-04-18] MEDS: BUPIVACAINE HCL 0.25% 30 ML VIAL As Ordered ONE (12:10)
--- NOTE | 2019-04-18 12:23 | REP ---
SPECIMEN RADIOGRAPH: A specimen radiograph is performed following needle localization for surgical lumpectomy and biopsy of the left breast. The obtained surgical specimen contains the multiple clustered pleomorphic microcalcifications which were previously identified of the left breast on prior mammograms of 02/24/2019 and 02/22/2019. Electronically Signed by Baltazar Escamilla MD 04/21/2019 05:10 P
[2019-04-18] MEDS ORDERED: oxyCODONE 5MG TAB PO PRN (13:00)
[2019-04-18] MEDS ORDERED: METOCLOPRAMIDE INJ 10MG/2ML VIAL (J2765) IV PRN (13:00)
[2019-04-18] MEDS ORDERED: ONDANSETRON 4MG/2ML VIAL (J2405) IV PRN (13:00)
[2019-04-18] MEDS ORDERED: LR 1,000 ML IV SCH (13:00)
[2019-04-18] MEDS ORDERED: fentaNYL 100 MCG/2 ML INJECTION (J3010) IV PRN (13:00)
[2019-04-18] MEDS ORDERED: NORCO, ANEXSIA 5/325MG TABLET (HYDROcodone/ACETAMINOPHEN) PO PRN (13:00)
[2019-04-18 16:12] LABS: IONIZED CALCIUM 4.5 MG/DL (4.5-5.3)
[2019-04-18 16:17] LABS: BASO % 0.2 % (0.0-1.0); HEMATOCRIT 47.2 % (36.0-47.0); LYMPH # 0.7 10^3/uL (1.5-5.0); LYMPH % 4.7 % (24.0-44.0); MEAN CORPUSCULAR HEMOGLOBIN 29.9 pg (27.0-33.0); MEAN CORPUSCULAR HGB CONC 29.7 g/dl (32.0-36.5); MEAN CORPUSCULAR VOLUME 100.6 fl (80.0-96.0); MONO # 0.4 10^3/uL (0.0-0.8); MONO % 2.7 % (0.0-5.0); NEUTROPHILS # 12.6 10^3/uL (1.5-8.5); NEUTROPHILS % 91.8 % (36.0-66.0); PLATELET COUNT, AUTOMATED 168 10^3/uL (150-450); RED BLOOD COUNT 4.69 10^6/uL (4.00-5.40); WHITE BLOOD COUNT 13.8 10^3/uL (4.0-10.0)
[2019-04-18] MEDS ORDERED: GLUCAGON FOR INJ 1 MG VIAL (J1610) SC PRN (16:45)
[2019-04-18] MEDS ORDERED: GLUCOSE 4 GM CHEW TABLET PO PRN (16:45)
[2019-04-18] MEDS ORDERED: DEXTROSE 50% 50 ML SYRINGE IV PRN (16:45)
--- NOTE | 2019-04-18 16:46 | REP ---
PORTABLE CHEST: AP portable view of the chest is performed. COMPARISON: 03/31/2017. There is poor ventilation with bibasilar fibroatelectatic change similar to the prior exam. Heart and mediastinum appear unchanged. Prosthetic heart valve and multiple mediastinal clips are present. IMPRESSION: Stable chronic changes. Electronically Signed by Baltazar Escamilla MD 04/21/2019 05:17 P
[2019-04-18 16:54] LABS: ALBUMIN 3.6 GM/DL (3.2-5.2); ALT/SGPT 48 U/L (12-78); BILIRUBIN,TOTAL 0.4 MG/DL (0.2-1.0); BLOOD UREA NITROGEN 18 MG/DL (7-18); CALCIUM LEVEL 8.4 MG/DL (8.8-10.2); CARBON DIOXIDE LEVEL 33 MEQ/L (21-32); CHLORIDE LEVEL 103 MEQ/L (98-107); CK-MB VALUE MASS 1.9 NG/ML (<3.6); CPK CREATINE PHOSPHOKINASE 120 U/L (26-192); CREATININE FOR GFR 0.68 MG/DL (0.55-1.30); GLOMERULAR FILTRATION RATE > 60.0 (>45); GLUCOSE, FASTING 183 MG/DL (70-100); MB/CK RELATIVE INDEX 1.58 (< OR =4); SODIUM LEVEL 140 MEQ/L (136-145); THYROID STIMULATING HORMONE 0.481 uIU/ML (0.358-3.740); TOTAL PROTEIN 6.9 GM/DL (6.4-8.2); TROPONIN I < 0.02 NG/ML (< 0.10)
--- NOTE | 2019-04-18 16:56 | ECGEPIP ---
[facility] Test Date: 2019-04-18 Pat Name: GHADA GARNICA Department: Room: - Gender: Female Vulnerability Researcher: [place] : 1955 Requested By: TOBY Boss Order Number: [id number] Reading MD: Genaro Wilson Measurements Intervals [place] Rate: 97 P: 47 CO: 171 QRS: 62 QRSD: 90 T: 221 QT: 369 QTc: 470 Interpretive Statements SINUS RHYTHM LEFT VENTRICULAR HYPERTROPHY AND ST-T CHANGE POSSIBLE SEPTAL MYOCARDIAL INFARCTION, OF INDETERMINATE AGE Electronically Signed on 04-18-2019 16:56:10 EST by Genaro Wilson
[2019-04-18] MEDS ORDERED: OMEPRAZOLE 20 MG CAP PO ONE (17:15)
[2019-04-18] MEDS: HumaLOG INSULIN (NovoLOG) PER UNIT SC SCH ×3 (17:30→21:25)
[2019-04-18 17:40] VITALS: BP 126/67
[2019-04-18] MEDS: LOSARTAN 25 MG TAB PO SCH (18:28)
[2019-04-18] MEDS: MULTIVITAMINS/MINERALS THERAP 1 TAB PO SCH (18:28)
[2019-04-18] MEDS: ACETAMINOPHEN TAB 650MG DOSE (2X325MG) PO PRN (18:28)
[2019-04-18 18:45] VITALS: BP 127/70
--- NOTE | 2019-04-18 18:54 | HPE ---
DATE OF ADMISSION: 04/18/2019 PRIMARY CARE PHYSICIAN: Mattie Moseley CHIEF COMPLAINT: Chest pain. HISTORY OF PRESENT ILLNESS: A 63-year-old female with a history of aortic valve replacement, on chronic aspirin, arteriovenous malformation (AVM), causing gastrointestinal (GI) bleed, requiring blood transfusion, complaint of abrupt onset of left-sided chest pain described as achy, radiating up the neck, now the left arm after left breast biopsy. Patient received fentanyl for pain control, as the pain was initially thought to be secondary to recent left breast biopsy. Patient states that she has been very stressed out at home and has had on and off chest pains at home due to her daughter being hospitalized. Chest pain at home lasted for about 1-2 hours. Usually occurs at rest and abates without any intervention. During this hospital stay, patient was then brought back to recovery and was not discharged home due to complaints of chest pain. Troponin is less than 0.02. Cardiac markers remain negative with total CK of 120, MB fraction of 1.9. Patient's EKG, however, shows left ventricular hypertrophy (LVH), ST-T changes, and possible septal myocardial infarction (TX) of indeterminate age. Hospitalist was called to admit. Patient otherwise denies any coffee-ground emesis, nausea, vomiting, shortness of breath, palpitations, lightheadedness, dizziness, epigastric discomfort, feeling of impending doom, or diaphoresis. No history of deep vein thrombosis (DVT) or pulmonary emboli (PEs) in the past and no recent history of any trauma to the chest. PAST MEDICAL HISTORY: 1. Diabetes. 2. Hypertension. 3. Gastric ulcer. 4. Nephrolithiasis status post lithotripsy. 5. Antrum dysplasia, requiring cauterization, causing GI bleed. 6. Severe aortic stenosis, status post aortic valve replacement 2011 at [facility]. 7. Left breast calcifications, status post biopsy February 2019 and April 2019. 8. Acute on chronic gastritis. 9. Diastolic congestive heart failure. 10. October 2011, LVH, grade 2 diastolic dysfunction, moderate left atrial enlargement, moderate to severe elevated right ventricular (RV) systolic pressures. 11. Bovine aortic valve replacement. 12. Nuclear stress test 2013, low risk. 14. LVH repolarization. 15. Hypertensive heart disease. 16. Morbid obesity. 17. Depression. 18. Vitamin D deficiency. 19. Nephrolithiasis January 2002 with extracorporeal shockwave lithotripsy (ESWL). 20. Colonoscopy September 2017. Nonbleeding internal/external hemorrhoids. 21. Diverticulosis. 22. Nocturnal hypoxia. Refuses obstructive sleep apnea (OBSTRUCTIVE SLEEP APNEA) treatment. ALLERGIES: PENICILLIN, SULFA. PAST SURGICAL HISTORY: 1. Hysterectomy. 2. Cholecystectomy. 3. ESWL. 4. section. 5. Cystoscopy. 6. Aortic valve replacement with bovine valves October 2011. 7. Colonoscopy. 8. Endoscopy. FAMILY HISTORY: Father , age 72, trach with infection. Mother , age 71 with cancer. Sister with pancreatic cancer ([place]). Patient never smoked cigarettes. Does not drink alcohol. . Mother of 4 with an adopted daughter. HOME MEDICATIONS: - aspirin 81 mg daily - losartan 25 daily - metformin 500 daily - multivitamin one tablet daily - Januvia 100 mg daily REVIEW OF SYSTEMS: Per history of present illness (HPI). A 12-point system otherwise negative. PHYSICAL EXAMINATION: Temperature 97.4, pulse 94, respiratory rate 16, blood pressure 120/56, 100% on 2 liters nasal cannula. GENERAL: Patient is awake, alert, oriented to person, place, and time, answering questions appropriately. Anicteric sclerae. No jaundice. Moist mucous membranes. No jugular venous distention (JVD), thyromegaly , cervical lymphadenopathy. LUNGS: Clear to auscultation. No wheezes, rales, or rhonchi. Patient is status post left upper-outer quadrant breast biopsy with dressing. HEART: S1, S2, sinus rhythm. Systolic ejection murmur at the apex, radiating up to the carotids. Nondisplaced point of maximal impulse. ABDOMEN: Soft, nontender, nondistended. Positive bowel sounds times four quadrants. No rebound. No guarding. EXTREMITIES: No clubbing, cyanosis, or any pitting edema. LABORATORY DATA: White count 13.8, hemoglobin 14, hematocrit 47, platelet count 168. Sodium 140, potassium 4, chloride 103, bicarbonate 33, BUN 18, creatinine 0.68, glucose of 183. A1c of 11.5 on 11/01/2018. Calcium of 8.4. Ionized calcium 4.5. Magnesium of 2. EKG: Read by Dr. Genaro Wilson 04/18/2019. Sinus rhythm, ventricular rate of 97, [place] interval 171, QRS duration 90, QT 369, QTC 470. Left ventricular hypertrophy and ST change. Possible septal TX of indeterminate age. Chest x-ray 04/18/2019: Stable chronic changes. Poor ventilation with bibasilar fibroatelectasis, similar to prior exam. Heart and mediastinum appear unchanged. Prosthetic heart valve and multiple mediastinal clips are present. ASSESSMENT AND PLAN: A 63-year-old female with past medical history significant for hypertension, diabetes, severe aortic stenosis, status post bovine aortic valve replacement in 2011 at [facility]. Follows with Dr. Wilson. Gastric ulcer with arteriovenous malformation (AVM). Nephrolithiasis. Had left upper-outer quadrant abdominal findings on the mammogram with failed ultrasound-guided biopsy in March, preceded with surgical biopsy on April 18, then developed postoperative left-sided chest pain, initially thought to be secondary to the procedure and subsequently now with radiation up the neck and down the left arm, currently admitted for observation. ACTIVE ISSUES: 1. Chest pain. Patient has pain radiating up the neck and down the left arm. Troponin is negative. EKG shows possible septal infarct, age indeterminate. Patient is admitted for observation. Telemetry for 24 hours and cycle cardiac markers and serial EKGs. Patient's chest pain subsided without any intervention. She is on nitroglycerine as needed currently. Will resume aspirin in the morning. Start on empiric proton pump inhibitor (PPI) 20 mg daily as well. 2. Hypertension. Currently controlled. Will start on home dose of losartan 25 daily. 3. Type 2 diabetes, on consistent-carbohydrate diet. sliding scale insulin with coverage. fingersticks qachs. 4. Aortic valve replacement with bovine valve. Resume on aspirin 81 mg. 5. History of gastric ulcer, arteriovenous malformation (AVM). No active complaints of hematemesis, bright red blood per rectum, melena, black tarry stools. Hemoglobin and hematocrit remain stable. PPI for now. Will dose Prilosec 20 daily. 6. Compression stockings for deep vein thrombosis (DVT) prophylaxis. Patient has been signed out to Dr. Regino Baca. [facility]
[2019-04-18 20:00] VITALS: BP 159/78
[2019-04-18 21:00] VITALS: BP 147/76
[2019-04-18 22:00] VITALS: BP 126/57
[2019-04-18 23:00] VITALS: BP 121/68
--- NOTE | 2019-04-18 23:23 | RO ---
DATE OF PROCEDURE: 04/18/2019 PREOPERATIVE DIAGNOSIS: Microcalcifications upper outer quadrant left breast. POSTOPERATIVE DIAGNOSIS: Microcalcifications upper outer quadrant left breast. PROCEDURE PERFORMED: Needle localized excisional biopsy of calcifications left breast upper outer quadrant. SURGEON: Dr. Raheem Zafar FIELD SUPPORT SPECIALIST: ANESTHESIA: General. The patient had been started with monitored anesthesia care but became apneic with hypoventilation after minimal sedation and so was rapidly transitioned to general endotracheal anesthesia. INDICATIONS FOR THE PROCEDURE: The patient is a 63-year-old woman who on routine screening mammography was found to have a cluster of microcalcifications in the upper outer quadrant of the left breast. These were not accessible by stereotactic biopsy, and she was scheduled for a needle localized excisional biopsy. DESCRIPTION OF PROCEDURE: The patient was sent to the x-ray department where she underwent needle localization using mammographic guidance. She was brought to the operating room and placed on the table in a supine position. As noted, she was started with some sedation but developed hypoventilation with minimal sedation and so was placed under general endotracheal anesthesia. The patient's left breast and chest wall were prepped and draped in a sterile fashion. The localizing wire entered the left breast in the far lateral portion extending actually anterior and medial into the upper midportion of the breast. The guidewire appeared to extend approximately 6 cm into the breast. A skin marker was used to outline the course of the needle, and its estimated depth into the breast. Local anesthesia of a mixture of 1% Xylocaine with 0.25% Marcaine was infiltrated along the line for an incision. This incision was begun at the needle insertion site and extended medially approximately 3 to 3-1/2 cm. Tissues were opened down to the guidewire. Hemostasis was ensured with the cautery. Then, using curved Nava scissors, a core of tissue surrounding the localizing wire was excised. This was approximately 2-3 cm in diameter x 5 cm in depth. This was placed on the scanning grid and a specimen mammogram was obtained using the BumpTop system. The initial image showed the concerning cluster of microcalcifications nicely centered in the middle of the specimen at the tip of the guidewire. The wound was then inspected for hemostasis. The smaller vessels were controlled with cautery. Several bleeding points were oversewn with [id number] sutures of #3-0 chromic. Several fragments of breast tissue were excised, and these were sent as an additional specimen of breast tissue. Several medium hemoclips were placed on the inner aspect of the breast wound in the general area where the specimen had been excised to zach this in case repeat localization of this area were necessary. After ensuring hemostasis, the wound was approximated with interrupted sutures of #3-0 chromic. The subcutaneous tissues were closed with #3-0 chromic, and the skin edges were approximated with a running subcuticular #4-0 Vicryl and Steri-Strips. A light dressing was applied. The patient was awakened and extubated. On extubation, she again had some issues with hypoventilation, which required additional anesthesia intervention. There was consideration of reintubation but ultimately her respirations improved, and reintubation was not required. She was transported to the recovery room in stable condition.
[2019-04-18 23:54] LABS: CPK CREATINE PHOSPHOKINASE 158 U/L (26-192); MB/CK RELATIVE INDEX 1.27 (< OR =4); TROPONIN I < 0.02 NG/ML (< 0.10)
[2019-04-19] VITALS (10 sets, daily range): BP systolic 108–130; BP diastolic 59–67
[2019-04-19] MEDS: NITROGLYCERIN 0.4 MG SUBL TABLET SL PRN ×3 (06:06→06:19)
[2019-04-19] MEDS: ACETAMINOPHEN TAB 650MG DOSE (2X325MG) PO PRN ×2 (06:16→10:12)
[2019-04-19 06:49] LABS: CPK CREATINE PHOSPHOKINASE 153 U/L (26-192); MB/CK RELATIVE INDEX 1.31 (< OR =4); TROPONIN I < 0.02 NG/ML (< 0.10)
[2019-04-19] MEDS: HumaLOG INSULIN (NovoLOG) PER UNIT SC SCH ×4 (07:30→20:22)
[2019-04-19] MEDS: LOSARTAN 25 MG TAB PO SCH (07:53)
[2019-04-19] MEDS: ASPIRIN 81 MG CHEW TABLET PO SCH (07:53)
[2019-04-19] MEDS: OMEPRAZOLE 20 MG CAP PO SCH (07:53)
[2019-04-19] MEDS: MULTIVITAMINS/MINERALS THERAP 1 TAB PO SCH (07:53)
--- NOTE | 2019-04-19 08:40 | REP ---
CHEST X-RAY: Two views. HISTORY: Chest pain. COMPARISON CHEST X-RAY: April 18, 2019. FINDINGS: The patient is status post aortic valve replacement. Sternotomy clips are seen. Today's radiograph is again exposed at a quite low level of inspiration and there is coarse bilateral lower lobe discoid atelectatic change again noted similar to chest x-ray done on the previous day. These atelectatic changes are more prominent. No definite new infiltrate is seen. The pleural angles are sharp. Heart is difficult to evaluate for size because of the low level of inspiration. IMPRESSION: Poor level of inspiration. Bilateral basilar atelectatic changes increased from April 18, 2019 prior study. No definite new infiltrate. Status post aortic valve replacement. Electronically Signed by Israel Anderson MD 04/19/2019 05:36 P
--- NOTE | 2019-04-19 10:31 | REP ---
LEFT BREAST LOCALIZATION The procedure was performed under the direct supervision of Dr. Escamilla. The patient has a history of A suspicious microcalcification in the upper outer quadrant of the left breast seen on a previous mammogram dated 02/22/2019. The left breast stereotactic biopsy was attempted on 03/22/2019, however, the calcifications were too far posterior to be seen in the aperture for biopsy. The risks and benefits of the procedure were explained to the patient and informed consent was obtained. A lateral medial approach was utilized. The calcifications were localized using mammographic guidance. The skin was prepped and draped in a sterile fashion. 1% lidocaine was used as a local anesthetic. A 7.5 cm [place] needle wire system was inserted. Follow-up mammographic images demonstrate good needle placement. The patient tolerated the procedure well and there were no immediate complications. Electronically Signed by DIDI Bowman 04/18/2019 04:14 P Electronically Signed by Baltazar Escamilla MD 04/19/2019 10:21 A
[2019-04-19] MEDS ORDERED: ISOVUE-370 76% 100ML VIAL (Q9967) As Ordered ONE (10:54)
--- NOTE | 2019-04-19 12:13 | REP ---
CT PULMONARY ANGIOGRAM: With IV contrast. HISTORY: Chest discomfort COMPARISON STUDIES: August 02, 2017 CONTRAST DOSE: 75 mL of Isovue [address] TECHNIQUE: Helical scanning is acquired and overlapping 1.5 mm and contiguous 3 mm axial images are reformatted. In addition, maximum intensity projection and multiplanar re-formation images are generated in sagittal and coronal imaging projections. CT PULMONARY ANGIOGRAPHIC FINDINGS: There is good opacification of the pulmonary arterial tree and there is no CT evidence of pulmonary embolus. No evidence of aortic aneurysm or dissection is seen. The patient is status post aortic valve replacement. A poor level of inspiration is noted as seen on today's chest x-ray. There is diffuse fatty infiltration in the liver. There is extensive bibasilar atelectasis involving the lower lobes, right middle lobe, and lingular segment left upper lobe. No hilar or mediastinal mass or adenopathy is observed. No pleural or pericardial effusion is seen. The distribution and extent of the bibasilar atelectatic change is similar to the prior study, perhaps somewhat heavier in the left lower lobe than on the prior exam. There are post thoracotomy changes in the right anterolateral chest wall with a small lung hernia anteriorly and inferiorly unchanged. IMPRESSION: No CT evidence of pulmonary embolus. Coarse bibasilar atelectatic changes and poor level of inspiration. Atelectasis increased in the left lower lobe compared to the August 02, 2017 study. Otherwise the atelectatic changes are similar to the prior study. Post thoracotomy changes on the right. Status post aortic valve replacement. Some fatty liver change. Electronically Signed by Israel Anderson MD 04/19/2019 05:38 P
[2019-04-19] MEDS ORDERED: CALCIUM CARBONATE 500 MG CHEW U/D PO PRN (12:45)
--- NOTE | 2019-04-19 17:17 | IPNPDOC ---
Subjective Date Seen The patient was seen on 04/19/19. Subjective Chief Complaint/HPI Seen in Med-Surg, with some chest discomfort intermittently. It involves her L arm, neck and back. Denies any tenderness to palpation. Constitutional: Reports: Malaise; Denies: Chills, Fever Pulmonary: Reports: Cough; Denies: Dyspnea Cardiovascular: Reports: Chest Pain; Denies: Palpitations Gastrointestinal: Denies: Nausea, Vomiting, Diarrhea, Constipation Neurological: Denies: Weakness Psych: Reports: Mood Normal Objective Physical Examination General Exam: Positive: Alert, Cooperative, No Acute Distress Eye Exam: Positive: Conjunctiva & lids normal; Negative: Sclera icteric Chest Exam: Positive: Clear to auscultation, Diminished Heart Exam: Positive: Rate Normal; Negative: Tachycardic Abdomen Exam: Positive: Normal bowel sounds, Soft; Negative: Tenderness Extremity Exam: Negative: Edema Skin Exam: Positive: Nl turgor and temperature; Negative: Rash Neuro Exam: Positive: Normal Speech Psych Exam: Positive: Mental status NL, Mood NL Assessment /Plan Problems (1) Chest pain Status: Acute Problem Text: Cardiac markers negative, CT angio negative and without signs of pneumonia. Atelectasis is noticed, and lung expansion therapy ordered. (2) Diabetes mellitus type 2 in obese Status: Chronic Problem Text: on insulin while inpatient; poorly controlled. (3) Abnormal mammogram Status: Acute Problem Text: She was admitted following a surgical biopsy, results not currently available, will require outpatient followup. (4) Hypertension Status: Chronic Plan/VTE VTE Prophylaxis Ordered?: Yes VS, I&O, 24H, Fishbone Vital Signs/I&O Vital Signs Date Time Temp Pulse Resp B/P (MAP) Pulse Ox O2 Delivery O2 Flow Rate FiO2 04/19/19 14:00 97.5 91 18 119/66 (83) 93 Nasal Cannula 1.0 I&O- Last 24 Hours up to 6 AM 04/19/19 06:00 Intake Total 2870 ml Output Total 600 ml Balance 2270 ml Laboratory Data 24H LABS Laboratory Tests 2 04/18/19 18:17: Bedside Glucose (Misc Panel) 169H 04/18/19 19:40: Bedside Glucose (Misc Panel) 252H 04/18/19 23:09: Total Creatine Kinase 158, Creatine Kinase MB 2.0, Creatine Kinase MB Relative Index 1.27, Troponin I < 0.02 04/19/19 05:57: Bedside Glucose (Misc Panel) 107 04/19/19 06:13: Total Creatine Kinase 153, Creatine Kinase MB 2.0, Creatine Kinase MB Relative Index 1.31, Troponin I < 0.02 04/19/19 11:55: Bedside Glucose (Misc Panel) 172H 04/19/19 16:35: Bedside Glucose (Misc Panel) 181H LISA MORIN DO Apr 19, 2019 17:17
--- NOTE | 2019-04-19 21:10 | ECGEPIP ---
[facility] Test Date: 2019-04-18 Pat Name: GHADA GARNICA Department: Room: S4586-85 Gender: Female Auto Appraiser: : [id number] Requested By: JOHNY Massey Order Number: [id number] Reading MD: Genaro Wilson Measurements Intervals [place] Rate: 105 P: 53 [place]: 161 QRS: 59 QRSD: 89 T: 244 QT: 320 QTc: 424 Interpretive Statements SINUS TACHYCARDIA LEFT VENTRICULAR HYPERTROPHY AND ST-T CHANGE No significant change compared with 04/18/2019. Electronically Signed on 04-19-2019 21:09:51 EST by Genaro Wilson
[2019-04-20] MEDS: ACETAMINOPHEN TAB 650MG DOSE (2X325MG) PO PRN ×2 (00:08→08:44)
[2019-04-20 02:00] VITALS: BP 119/64
[2019-04-20 06:00] VITALS: BP 137/70
[2019-04-20 08:43] VITALS: BP 133/71
[2019-04-20] MEDS: LOSARTAN 25 MG TAB PO SCH (08:43)
[2019-04-20] MEDS: MULTIVITAMINS/MINERALS THERAP 1 TAB PO SCH (08:44)
[2019-04-20] MEDS: ASPIRIN 81 MG CHEW TABLET PO SCH (08:44)
[2019-04-20] MEDS: OMEPRAZOLE 20 MG CAP PO SCH (08:44)
[2019-04-20] MEDS: HumaLOG INSULIN (NovoLOG) PER UNIT SC SCH ×2 (08:45→12:00)
[2019-04-20 10:00] VITALS: BP 115/57
--- NOTE | 2019-04-20 10:44 | IPNPDOC ---
Subjective Date Seen The patient was seen on 04/20/19. Subjective Chief Complaint/HPI Ambulated to and in hallway with nurses without any further CP. Denies SOB. Sats remained in 90s on RA with ambulation this am. Constitutional: Denies: Chills, Fever Pulmonary: Denies: Dyspnea, Cough Cardiovascular: Denies: Chest Pain, Palpitations, Orthopnea Gastrointestinal: Denies: Nausea, Vomiting, Abdominal Pain, Diarrhea, Constipation, Melena, Hematochezia Objective Physical Examination General Exam: Positive: Alert, Cooperative, No Acute Distress Eye Exam: Positive: Conjunctiva & lids normal; Negative: Sclera icteric Chest Exam: Positive: Clear to auscultation, Rales (Left basialr insp creps) Heart Exam: Positive: Rate Normal; Negative: Tachycardic Abdomen Exam: Positive: Normal bowel sounds, Soft; Negative: Tenderness Extremity Exam: Positive: Edema (trace edema BL) Skin Exam: Positive: Nl turgor and temperature; Negative: Rash Neuro Exam: Positive: Normal Speech Psych Exam: Positive: Mental status NL, Mood NL Assessment /Plan Problems (1) Chest pain Status: Acute Problem Text: Resolved - will 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 Atelectasis is noticed, and lung expansion therapy ordered. (2) Diabetes mellitus type 2 in obese Status: Chronic Problem Text: on insulin while inpatient; poorly controlled. (3) Abnormal mammogram Status: Acute Problem Text: She was admitted following a surgical biopsy, results not currently available, will require outpatient followup. (4) Hypertension Status: Chronic Plan/VTE VTE Prophylaxis Ordered?: Yes Disposition d/c home today VS, I&O, 24H, Fishbone Vital Signs/I&O Vital Signs Date Time Temp Pulse Resp B/P (MAP) Pulse Ox O2 Delivery O2 Flow Rate FiO2 04/20/19 08:48 0.5 04/20/19 08:43 133/71 04/20/19 06:00 97.6 83 21 97 Nasal Cannula I&O- Last 24 Hours up to 6 AM 04/20/19 06:00 Intake Total 1290 ml Output Total 500 ml Balance 790 ml Laboratory Data 24H LABS Laboratory Tests 2 04/19/19 11:55: Bedside Glucose (Misc Panel) 172H 04/19/19 16:35: Bedside Glucose (Misc Panel) 181H 04/19/19 20:18: Bedside Glucose (Misc Panel) 157H 04/20/19 06:04: Bedside Glucose (Misc Panel) 153H DALLAS TALAVERA PA-C Apr 20, 2019 10:44
[2019-04-20] MEDS ORDERED: OMEP-218 PO (10:47)
[2019-04-20] MEDS ORDERED: ASPI81CH8 PO (10:47)
--- NOTE | 2019-04-21 20:03 | IPN ---
DATE: 04/19/2019 HISTORY: The patient came in for an outpatient left breast needle localized excisional biopsy of calcifications. In the recovery area, she complained of some left upper chest pain with some radiation to her left upper extremity. She had an EKG obtained which suggested a possible septal myocardial infarction (IN) of undetermined age. The hospitalist was consulted, and she was admitted for further evaluation of possible cardiac etiology. Overnight she had a series of cardiac injury profiles with troponins that were all normal. Today she has undergone a CT angiogram which showed no evidence of pulmonary embolus. She does have some chronic changes in her chest with some bilateral lower lobe atelectasis or scarring with generally elevated appearing diaphragm. Vital Signs: Show that she has been afebrile since surgery. Her pulse has ranged from the upper 90s to as high as 105 or so. Her blood pressure has been in the normal range. Intake and output show that yesterday she had 2500 in with 400 recorded out, only 350 of which was urine output. PHYSICAL EXAMINATION: The patient is sitting up today and looking fairly comfortable. She is not having any chest pain right at this point. Heart exam shows a regular rhythm. The dressing on her left breast is intact without any evidence of bleeding and the breast is soft with only expected tenderness. Laboratory studies show the cardiac injury profiles as noted. IMPRESSION: Patient has had some chest pain without any evidence of cardiac injury by laboratory testing. Her breast wound appears to be healing appropriately. She has been requiring some oxygen as well for somewhat depressed oxygen saturations today. PLAN: I will continue to follow the patient while she is here, but her primary management remains with the hospitalist. Thankfully so far no serious cardiac problem has been identified.
== END 2019-04-20 12:27 | disposition home or self-care (01) ==
LOC: M SDC 07:37 → M MSPAV 15:29
PROVIDERS: ADMIT General Practice; ATTEND Family Medicine
DX: R92.0 Mammographic microcalcification found on diagnostic imaging of breast (principal); R07.9 Chest pain, unspecified; I11.9 Hypertensive heart disease without heart failure; I50.30 Unspecified diastolic (congestive) heart failure; E11.9 Type 2 diabetes mellitus without complications; E55.9 Vitamin D deficiency, unspecified; E66.01 Morbid (severe) obesity due to excess calories; Z95.2 Presence of prosthetic heart valve; Z79.82 Long term (current) use of aspirin; Z79.84 Long term (current) use of oral hypoglycemic drugs; Z79.899 Other long term (current) drug therapy; Z88.0 Allergy status to penicillin; Z88.2 Allergy status to sulfonamides
CPT/HCPCS: 19125; 36415; 71045; 71046; 71275; 76098; 80053; 82330; 82550; 82553; 83735; 84443; 84484; 85025; 88305; 93005; G0378; J1100; J1885; J2250; J2405; J3010; Q9967

== ENCOUNTER → 2019-05-01 | Outpatient (REF) | payer MEDICARE, MEDICAID ==
[~2019-05-01] MED LIST changes: +ASPI81CH8 PO; -LIDOCAINE 2% INJ 100 MG/5 ML SDV (FOR ANES.) As Ordered ONE; -LIDOCAINE 5% (LIDODERM) PATCH TD ONE; -LR 1,000 ML IV ONE; +OMEP-218 PO; -ONDANSETRON 4MG/2ML VIAL (J2405) As Ordered ONE; -PROPOFOL 200 MG/20 ML VIAL As Ordered ONE; -dexameTHASONE 4 MG/ML 1ML VIAL (J1100) As Ordered ONE
[2019-05-01 19:15] LABS: BASO % 0.3 % (0.0-1.0); EOS # 0.1 10^3/uL (0.0-0.5); EOS % 0.8 % (0.0-3.0); HEMATOCRIT 45.3 % (36.0-47.0); HEMOGLOBIN 13.8 g/dl (12.0-15.5); LYMPH # 1.4 10^3/uL (1.5-5.0); LYMPH % 15.6 % (24.0-44.0); MEAN CORPUSCULAR HEMOGLOBIN 30.4 pg (27.0-33.0); MEAN CORPUSCULAR HGB CONC 30.5 g/dl (32.0-36.5); MEAN CORPUSCULAR VOLUME 99.8 fl (80.0-96.0); MONO % 10.5 % (0.0-5.0); NEUTROPHILS # 6.7 10^3/uL (1.5-8.5); NEUTROPHILS % 72.2 % (36.0-66.0); PLATELET COUNT, AUTOMATED 206 10^3/uL (150-450); RED BLOOD COUNT 4.54 10^6/uL (4.00-5.40); WHITE BLOOD COUNT 9.2 10^3/uL (4.0-10.0)
[2019-05-01 19:48] LABS: ALBUMIN 3.6 GM/DL (3.2-5.2); ALT/SGPT 30 U/L (12-78); BILIRUBIN,TOTAL 0.4 MG/DL (0.2-1.0); BLOOD UREA NITROGEN 18 MG/DL (7-18); CALCIUM LEVEL 8.9 MG/DL (8.8-10.2); CARBON DIOXIDE LEVEL 34 MEQ/L (21-32); CHLORIDE LEVEL 102 MEQ/L (98-107); CHOLESTEROL LEVEL 116 MG/DL (<200); CHOLESTEROL RISK RATIO 2.974 (<5); CREATININE FOR GFR 0.73 MG/DL (0.55-1.30); FERRITIN 134 NG/ML (8-252); FREE T4 1.05 NG/DL (0.76-1.46); GLOMERULAR FILTRATION RATE > 60.0 (>45); GLUCOSE, FASTING 212 MG/DL (70-100); HDL CHOLESTEROL 39 MG/DL (>40); IRON (FE) 58 UG/DL (50-170); LDL CHOLESTEROL 44 MG/DL (<100); MAGNESIUM LEVEL 2.1 MG/DL (1.8-2.4); NON-HDL-C 77 MG/DL; POTASSIUM SERUM 3.8 MEQ/L (3.5-5.1); SODIUM LEVEL 142 MEQ/L (136-145); THYROID STIMULATING HORMONE 0.553 uIU/ML (0.358-3.740); TOTAL IRON BINDING CAPACITY 305 UG/DL (250-450); TOTAL PROTEIN 7.4 GM/DL (6.4-8.2); TRIGLYCERIDES LEVEL 166 MG/DL (<150)
[2019-05-01 19:52] LABS: TOTAL 25(OH) VITAMIN D 15.1 NG/ML (30.0-100.0)
[2019-05-01 19:58] LABS: MALB URINE SIEMENS 45.3 MG/L; MAU/CREAT RATIO 14.9 MCG/MG (0.0-30.0)
[2019-05-01 20:16] LABS: HEMOGLOBIN A1c 7.9 %
== END ==
LOC: M SFHCADAM 14:56
PROVIDERS: ATTEND Physician Assistant Medical
DX: D50.9 Iron deficiency anemia, unspecified (principal); E55.9 Vitamin D deficiency, unspecified; I11.0 Hypertensive heart disease with heart failure; E78.5 Hyperlipidemia, unspecified; E11.36 Type 2 diabetes mellitus with diabetic cataract
CPT/HCPCS: 80053; 80061; 82043; 82306; 82728; 83036; 83550; 83735; 84439; 84443; 85025; 99495; G0463

== ENCOUNTER → 2019-10-27 | Outpatient (CLI) | payer MEDICARE, MEDICAID ==
[~2019-10-27] MED LIST changes: +BISO5TAB14 PO; -BISO5TAB9 PO; -METF-791 PO; +METF-838 PO; -OMEP-172 PO; +OMEP1CAP73 PO
[2019-10-27 14:19] LABS: BASO % 0.1 % (0.0-1.0); EOS # 0.1 10^3/uL (0.0-0.5); EOS % 0.7 % (0.0-3.0); LYMPH # 1.7 10^3/uL (1.5-5.0); LYMPH % 19.6 % (24.0-44.0); MEAN CORPUSCULAR HEMOGLOBIN 27.4 pg (27.0-33.0); MEAN CORPUSCULAR VOLUME 91.2 fl (80.0-96.0); MONO # 1.1 10^3/uL (0.0-0.8); MONO % 12.1 % (0.0-5.0); NEUTROPHILS # 5.8 10^3/uL (1.5-8.5); PLATELET COUNT, AUTOMATED 245 10^3/uL (150-450); RED BLOOD COUNT 3.29 10^6/uL (4.00-5.40); WHITE BLOOD COUNT 8.7 10^3/uL (4.0-10.0)
[2019-10-27 14:51] LABS: PERCENT SATURATION 4.8 % (13.2-45.0)
== END ==
LOC: M PLALAB 13:05
PROVIDERS: ATTEND Physician Assistant Medical
DX: D50.9 Iron deficiency anemia, unspecified (principal)

== ENCOUNTER → 2019-11-03 | Outpatient (REF) | payer MEDICARE, MEDICAID ==
[~2019-11-03] MED LIST changes: -ASPI81TA85 PO; +ASPI81TA86 PO; -LISI-542 PO; +LISI-898 PO
[2019-11-03 14:54] LABS: BASO % 0.1 % (0.0-1.0); EOS # 0.1 10^3/uL (0.0-0.5); EOS % 0.8 % (0.0-3.0); HEMATOCRIT 27.7 % (36.0-47.0); HEMOGLOBIN 7.9 g/dl (12.0-15.5); LYMPH # 1.5 10^3/uL (1.5-5.0); LYMPH % 19.3 % (24.0-44.0); MEAN CORPUSCULAR HEMOGLOBIN 25.4 pg (27.0-33.0); MEAN CORPUSCULAR HGB CONC 28.5 g/dl (32.0-36.5); MEAN CORPUSCULAR VOLUME 89.1 fl (80.0-96.0); MONO % 12.7 % (0.0-5.0); NEUTROPHILS # 5.3 10^3/uL (1.5-8.5); NEUTROPHILS % 66.6 % (36.0-66.0); PLATELET COUNT, AUTOMATED 190 10^3/uL (150-450); RED BLOOD COUNT 3.11 10^6/uL (4.00-5.40)
[2019-11-03 15:06] LABS: PERCENT SATURATION 5.2 % (13.2-45.0)
== END ==
LOC: M LABDRWAD 13:15
PROVIDERS: ATTEND Internal Medicine Hematology
DX: E55.9 Vitamin D deficiency, unspecified (principal); E78.5 Hyperlipidemia, unspecified; E11.36 Type 2 diabetes mellitus with diabetic cataract; D50.9 Iron deficiency anemia, unspecified

== ENCOUNTER → 2019-11-03 | Outpatient (REF) | payer MEDICARE, MEDICAID ==
[~2019-11-03] MED LIST changes: +ASPI81TA85 PO; -ASPI81TA86 PO; +LISI-542 PO; -LISI-898 PO
[2019-11-03 15:02] LABS: ALBUMIN 3.2 GM/DL (3.2-5.2); ALT/SGPT 24 U/L (12-78); BILIRUBIN,TOTAL 0.2 MG/DL (0.2-1.0); BLOOD UREA NITROGEN 17 MG/DL (7-18); CALCIUM LEVEL 8.5 MG/DL (8.8-10.2); CARBON DIOXIDE LEVEL 29 MEQ/L (21-32); CHLORIDE LEVEL 106 MEQ/L (98-107); CHOLESTEROL LEVEL 80 MG/DL (<200); CHOLESTEROL RISK RATIO 2.424 (<5); GLOMERULAR FILTRATION RATE > 60.0 (>45); GLUCOSE, FASTING 207 MG/DL (70-100); HDL CHOLESTEROL 33 MG/DL (>40); LDL CHOLESTEROL 35 MG/DL (<100); NON-HDL-C 47 MG/DL; SODIUM LEVEL 141 MEQ/L (136-145); TOTAL PROTEIN 6.7 GM/DL (6.4-8.2); TRIGLYCERIDES LEVEL 61 MG/DL (<150)
[2019-11-03 15:27] LABS: HEMOGLOBIN A1c 7.6 %
[2019-11-03 15:34] LABS: MALB URINE SIEMENS 39.8 MG/L; MAU/CREAT RATIO 10.6 MCG/MG (0.0-30.0)
== END ==
LOC: M SFHCADAM 10:52
PROVIDERS: ATTEND Physician Assistant Medical
DX: E55.9 Vitamin D deficiency, unspecified (principal); E78.5 Hyperlipidemia, unspecified; E11.36 Type 2 diabetes mellitus with diabetic cataract

== ENCOUNTER 2019-11-07 11:57 | Outpatient (CLI) | payer MEDICARE, MEDICAID ==
[~2019-11-07] VITALS: Ht 158.8 cm; Wt 85.6 kg
[~2019-11-07 11:57] MED LIST changes: +ACETAMINOPHEN TAB 650MG DOSE (2X325MG) PO SCH; +diphenhydrAMINE 25MG CAP PO SCH
[2019-11-07 12:20] VITALS: BP 112/90
== END 2019-11-07 16:00 | disposition home or self-care (01) ==
LOC: M INFU 11:57
PROVIDERS: ATTEND Internal Medicine Medical Oncology
DX: D50.9 Iron deficiency anemia, unspecified (principal); Z88.0 Allergy status to penicillin; Z88.2 Allergy status to sulfonamides
CPT/HCPCS: 36430; P9016

== ENCOUNTER 2020-01-12 10:21 | Outpatient (CLI) | payer MEDICARE, MEDICAID ==
[~2020-01-12] VITALS: Ht 158.8 cm; Wt 81.4 kg
[~2020-01-12 10:21] MED LIST changes: -ACETAMINOPHEN TAB 650MG DOSE (2X325MG) PO SCH; -ASPI81TA85 PO; +ASPI81TA86 PO; -diphenhydrAMINE 25MG CAP PO SCH
[2020-01-12 10:30] VITALS: BP 163/70
[2020-01-12] MEDS ORDERED: ACETAMINOPHEN TAB 650MG DOSE (2X325MG) PO ONE (10:30)
[2020-01-12] MEDS ORDERED: diphenhydrAMINE 25MG CAP PO ONE (10:30)
[2020-01-12] MEDS ORDERED: IRON SUCROSE 500 MG in NS 250 ML OVER 4 HRS IV ONE (10:30)
[2020-01-12] MEDS ORDERED: diphenhydrAMINE 25MG CAP As Ordered ONE (10:33)
[2020-01-12] MEDS ORDERED: ACETAMINOPHEN TAB 650MG DOSE (2X325MG) As Ordered ONE (10:34)
[2020-01-12 11:11] VITALS: BP 135/62
[2020-01-12 12:15] VITALS: BP 151/71
[2020-01-12 13:15] VITALS: BP 144/68
[2020-01-12 14:25] VITALS: BP 141/65
== END 2020-01-12 14:30 | disposition home or self-care (01) ==
LOC: M INFU 10:21
PROVIDERS: ATTEND Internal Medicine Medical Oncology
DX: D50.9 Iron deficiency anemia, unspecified (principal); Z88.0 Allergy status to penicillin; Z88.2 Allergy status to sulfonamides; Z88.8 Allergy status to other drugs, medicaments and biological substances
CPT/HCPCS: 96365; 96366; J1756

== ENCOUNTER → 2021-01-17 | Outpatient (REF) | payer MEDICARE, MEDICAID ==
[~2021-01-17] MED LIST changes: +ATOR1TAB19; +CLEO300C2 PO; +HYDR-3713 PO; +IBUP200C25 PO; +KETO10TAB PO; +LIDO2SOL9 SSP; -LISI-542 PO; +LISI-898 PO; +MULT-90 PO; +OMEP40CA4 PO; -OMEP40CA97 PO; -PEG1POW PO; +POLY17PO18 PO
[2021-01-17 13:40] LABS: CHOLESTEROL RISK RATIO 2.978 (<5)
[2021-01-17 13:51] LABS: MALB URINE SIEMENS 12.5 MG/L; MAU/CREAT RATIO 7.9 MCG/MG (0.0-30.0)
[2021-01-17 13:57] LABS: HEMOGLOBIN A1c 8.8 %
== END ==
LOC: M SFHCADAM 10:48
PROVIDERS: ATTEND Physician Assistant Medical
DX: E11.36 Type 2 diabetes mellitus with diabetic cataract (principal); E55.9 Vitamin D deficiency, unspecified

== ENCOUNTER → 2021-01-23 | Outpatient (CLI) | payer MEDICARE, MEDICAID ==
[~2021-01-23] MED LIST changes: -KLOR10TA76 PO; +POTA-136 PO
[2021-01-23 14:20] LABS: BLOOD UREA NITROGEN 18 MG/DL (7-18); CALCIUM LEVEL 9.2 MG/DL (8.8-10.2); CARBON DIOXIDE LEVEL 37 MEQ/L (21-32); CHLORIDE LEVEL 99 MEQ/L (98-107); CREATININE FOR GFR 0.61 MG/DL (0.55-1.30); GLOMERULAR FILTRATION RATE > 60.0 (>45); GLUCOSE, FASTING 142 MG/DL (70-100); NT-PRO BNP 101 PG/ML (<125); POTASSIUM SERUM 4.1 MEQ/L (3.5-5.1); SODIUM LEVEL 138 MEQ/L (136-145)
== END ==
LOC: M PLALAB 09:35
PROVIDERS: ATTEND Physician Assistant
DX: I50.32 Chronic diastolic (congestive) heart failure (principal)

== ENCOUNTER → 2021-02-25 | Outpatient (CLI) | payer MEDICARE, MEDICAID ==
[2021-02-25 15:55] LABS: BLOOD UREA NITROGEN 23 MG/DL (7-18); CALCIUM LEVEL 9.1 MG/DL (8.8-10.2); CARBON DIOXIDE LEVEL 38 MEQ/L (21-32); CHLORIDE LEVEL 100 MEQ/L (98-107); CREATININE FOR GFR 1.01 MG/DL (0.55-1.30); GLOMERULAR FILTRATION RATE > 60.0 (>45); GLUCOSE, FASTING 145 MG/DL (70-100); NT-PRO BNP 92 PG/ML (<125); SODIUM LEVEL 140 MEQ/L (136-145)
== END ==
LOC: M PLALAB 14:01
PROVIDERS: ATTEND Physician Assistant
DX: I50.32 Chronic diastolic (congestive) heart failure (principal)

== ENCOUNTER → 2021-05-05 | Outpatient (CLI) | payer MEDICARE, MEDICAID ==
[~2021-05-05] MED LIST changes: -ATOR1TAB19; +ATOR1TAB19 PO; -LISI-898 PO; +LISI5TAB11 PO; +LOSA25TA13 PO; -LOSA25TA14 PO; +METF-877 PO; +OMEP-173 PO; -OMEP-218 PO; +TORS10TA3 PO
== END ==
LOC: M LABSMTC 11:23
PROVIDERS: ATTEND Anesthesiology
DX: Z01.812 Encounter for preprocedural laboratory examination (principal); Z11.52 Encounter for screening for COVID-19

== ENCOUNTER 2021-05-08 10:27 | Day surgery (SDC) | payer MEDICARE, MEDICAID ==
[~2021-05-08] VITALS: Ht 157.5 cm; Wt 85.7 kg
[~2021-05-08 10:27] MED LIST changes: +LISI-898 PO; -LISI5TAB11 PO; -LOSA25TA13 PO; +LOSA25TA14 PO; +NS 1,000 ML IV ONE; -OMEP-173 PO; +OMEP-218 PO
[2021-05-08] MEDS ORDERED: LIDOCAINE 2% 100MG/5ML SDV (FOR ANES.) As Ordered ONE (11:33)
[2021-05-08] MEDS ORDERED: fentaNYL 100 MCG/2 ML INJECTION (J3010) As Ordered ONE (11:33)
[2021-05-08] MEDS ORDERED: propofoL 200 MG/20 ML VIAL As Ordered ONE (11:33)
--- NOTE | 2021-05-08 13:03 | ROOR ---
Patient Name: Nedra Astudillo Procedure Date: 05/08/2021 12:00 PM Date of : 1955 Age: 65 Room: [facility] Gender: Female Note Status: Finalized Procedure: Upper GI endoscopy Indications: Iron deficiency anemia Providers: Berto Mitchell MD Referring MD: JESSE Parker Requesting Provider: Medicines: Monitored Anesthesia Care Complications: No immediate complications. Procedure: Pre-Anesthesia Assessment: - Prior to the procedure, a History and Physical was performed, and patient medications and allergies were reviewed. The patient is competent. The risks and benefits of the procedure and the sedation options and risks were discussed with the patient. All questions were answered and informed consent was obtained. Patient identification and proposed procedure were verified by the physician, the nurse and the anesthesiologist in the procedure room. Mental Status Examination: alert and oriented. Airway Examination: normal oropharyngeal airway and neck mobility. Respiratory Examination: clear to auscultation. CV Examination: normal. Prophylactic Antibiotics: The patient does not require prophylactic antibiotics. Prior Anticoagulants: The patient has taken no previous anticoagulant or antiplatelet agents. ASA Grade Assessment: III - A patient with severe systemic disease. After reviewing the risks and benefits, the patient was deemed in satisfactory condition to undergo the procedure. The anesthesia plan was to use monitored anesthesia care (MAC). Immediately prior to administration of medications, the patient was re-assessed for adequacy to receive sedatives. The heart rate, respiratory rate, oxygen saturations, blood pressure, adequacy of pulmonary ventilation, and response to care were monitored throughout the procedure. The physical status of the patient was re-assessed after the procedure. The Colonoscope was introduced through the mouth, and advanced to the second part of duodenum. The upper GI endoscopy was accomplished without difficulty. The patient tolerated the procedure well. Findings: The examined esophagus was normal. The Z-line was regular and was found at the gastroesophageal junction. Scattered moderate inflammation characterized by congestion (edema), erythema and granularity was found in the gastric body and in the gastric antrum. There is no endoscopic evidence of bleeding or angioectasia in the entire examined stomach. No gross lesions were noted in the entire examined duodenum. Two 5 to 10 mm angioectasias with stigmata of recent bleeding were found in the jejunum. Coagulation for destruction of remaining portion of lesion using argon plasma at 0.8 liters/minute and 20 leach was successful. Estimated blood loss: none. Impression: - Normal esophagus. - Z-line regular, at the gastroesophageal junction. - Gastritis. - No gross lesions in the entire examined duodenum. - Two recently bleeding angioectasias in the jejunum. Treated with argon plasma coagulation (APC). - No specimens collected. Recommendation: - Patient has a contact number available for emergencies. The signs and symptoms of potential delayed complications were discussed with the patient. Return to normal activities tomorrow. Written discharge instructions were provided to the patient. - High fiber diet. - Follow an antireflux regimen. - Use Protonix (pantoprazole) 40 mg PO twice daily - to be taken in morning (1/2 hour before breakfast) and at bedtime ( atleast 3 hours after last meal) for 6 weeks. - Check CBC, serum iron , transferrin and ferritin levels (fasting labs) in 2 months. - Return to GI clinic in 2 months. - Return to primary care physician. Procedure Code(s): --- Professional --- 90949, Esophagogastroduodenoscopy, flexible, transoral; with ablation of tumor(s), polyp(s), or other lesion(s) (includes pre- and post-dilation and guide wire passage, when performed) Diagnosis Code(s): --- Professional --- K29.70, Gastritis, unspecified, without bleeding K55.21, Angiodysplasia of colon with hemorrhage D50.9, Iron deficiency anemia, unspecified CPT copyright 2019 [employer] [place] [employer]. All rights reserved. The codes documented in this report are preliminary and upon preparatory technician review may be revised to meet current compliance requirements. Berto Mitchell MD Berto Mitchell MD 05/08/2021 1:03:24 PM Electronically signed by Berto Mitchell MD Number of Addenda: 0 Note Initiated On: 05/08/2021 12:00 PM Estimated Blood Loss: Estimated blood loss was minimal.
--- NOTE | 2021-05-08 13:11 | ROOR ---
Patient Name: Nedra Astudillo Procedure Date: 05/08/2021 12:01 PM Date of : 1955 Age: 65 Room: [facility] Gender: Female Note Status: Finalized Procedure: Colonoscopy Indications: Iron deficiency anemia Providers: Berto Mitchell MD Referring MD: JESSE Parker Requesting Provider: Medicines: Monitored Anesthesia Care Complications: No immediate complications. Procedure: Pre-Anesthesia Assessment: - Prior to the procedure, a History and Physical was performed, and patient medications and allergies were reviewed. The patient is competent. The risks and benefits of the procedure and the sedation options and risks were discussed with the patient. All questions were answered and informed consent was obtained. Patient identification and proposed procedure were verified by the physician, the nurse and the anesthesiologist in the procedure room. Mental Status Examination: alert and oriented. Airway Examination: normal oropharyngeal airway and neck mobility. Respiratory Examination: clear to auscultation. CV Examination: normal. Prophylactic Antibiotics: The patient does not require prophylactic antibiotics. Prior Anticoagulants: The patient has taken no previous anticoagulant or antiplatelet agents. ASA Grade Assessment: II - A patient with mild systemic disease. After reviewing the risks and benefits, the patient was deemed in satisfactory condition to undergo the procedure. The anesthesia plan was to use monitored anesthesia care (MAC). Immediately prior to administration of medications, the patient was re-assessed for adequacy to receive sedatives. The heart rate, respiratory rate, oxygen saturations, blood pressure, adequacy of pulmonary ventilation, and response to care were monitored throughout the procedure. The physical status of the patient was re-assessed after the procedure. The Colonoscope was introduced through the anus and advanced to the terminal ileum, with identification of the appendiceal orifice and IC valve. The colonoscopy was performed without difficulty. The patient tolerated the procedure poorly due to the patient's inability to tolerate anesthesia. The quality of the bowel preparation was fair. Scope insertion time was 2 minutes. Scope withdrawal time was 9 minutes. The total duration of the procedure was 12 minutes. Findings: The perianal and digital rectal examinations were normal. The terminal ileum appeared normal. Multiple small and large-mouthed diverticula were found in the sigmoid colon. There was evidence of diverticular spasm. Lorene-diverticular erythema was seen. Purulent discharge was seen in association with the diverticular opening, suspicious of diverticulitis. There was no evidence of diverticular bleeding. There is no endoscopic evidence of bleeding in the entire colon. Non-bleeding external and internal hemorrhoids were found during retroflexion. The hemorrhoids were medium-sized. Impression: - Preparation of the colon was fair. - The examined portion of the ileum was normal. - Moderate diverticulosis in the sigmoid colon. There was evidence of diverticular spasm. Lorene-diverticular erythema was seen. Purulent discharge was seen in association with the diverticular opening, suspicious of diverticulitis. There was no evidence of diverticular bleeding. - Non-bleeding external and internal hemorrhoids. - No specimens collected. Recommendation: - Patient has a contact number available for emergencies. The signs and symptoms of potential delayed complications were discussed with the patient. Return to normal activities tomorrow. Written discharge instructions were provided to the patient. - High fiber diet. - Continue present medications. - Cipro (ciprofloxacin) 500 mg PO BID for 5 days. - Flagyl (metronidazole) 500 mg PO TID for 5 days. - Use fiber, for example Citrucel, Fibercon, Konsyl or Metamucil. - Follow the recommendations as per the other procedure note. - Return to GI clinic in 2 months. - Return to primary care physician. Procedure Code(s): --- Professional --- 80246, Colonoscopy, flexible; diagnostic, including collection of specimen(s) by brushing or washing, when performed (separate procedure) Diagnosis Code(s): --- Professional --- K64.8, Other hemorrhoids D50.9, Iron deficiency anemia, unspecified K57.30, Diverticulosis of large intestine without perforation or abscess without bleeding CPT copyright 2019 [employer]. All rights reserved. The codes documented in this report are preliminary and upon vp scientific affairs review may be revised to meet current compliance requirements. Berto Mitchell MD Berto Mitchell MD 05/08/2021 1:11:41 PM Electronically signed by Berto Mitchell MD Number of Addenda: 0 Note Initiated On: 05/08/2021 12:01 PM Estimated Blood Loss: Estimated blood loss was minimal.
[2021-05-08 13:30] VITALS: BP 133/60
== END 2021-05-08 13:42 | disposition home or self-care (01) ==
LOC: M OPP 10:27
PROVIDERS: ATTEND Internal Medicine Gastroenterology
DX: K57.30 Diverticulosis of large intestine without perforation or abscess without bleeding (principal); K64.8 Other hemorrhoids; D50.9 Iron deficiency anemia, unspecified; K29.70 Gastritis, unspecified, without bleeding; K55.21 Angiodysplasia of colon with hemorrhage; Z80.0 Family history of malignant neoplasm of digestive organs; Z79.82 Long term (current) use of aspirin; Z79.84 Long term (current) use of oral hypoglycemic drugs; Z79.891 Long term (current) use of opiate analgesic; Z79.899 Other long term (current) drug therapy; Z95.4 Presence of other heart-valve replacement; Z87.19 Personal history of other diseases of the digestive system; Z11.59 Encounter for screening for other viral diseases
CPT/HCPCS: 43270; 45378; J3010; U0002

== ENCOUNTER → 2021-10-24 | Outpatient (REF) | payer MEDICARE, MEDICAID ==
[~2021-10-24] MED LIST changes: -LISI-898 PO; +LISI5TAB11 PO; +LOSA25TA13 PO; -LOSA25TA14 PO; -NS 1,000 ML IV ONE; +OMEP-173 PO; -OMEP-218 PO
[2021-10-24 18:03] LABS: BASO % 0.2 % (0.0-1.0); EOS # 0.1 10^3/uL (0.0-0.5); EOS % 0.5 % (0.0-3.0); HEMATOCRIT 49.9 % (36.0-47.0); HEMOGLOBIN 15.2 g/dl (12.0-15.5); LYMPH # 1.4 10^3/uL (1.5-5.0); LYMPH % 14.7 % (24.0-44.0); MEAN CORPUSCULAR HEMOGLOBIN 29.1 pg (27.0-33.0); MEAN CORPUSCULAR HGB CONC 30.5 g/dl (32.0-36.5); MEAN CORPUSCULAR VOLUME 95.4 fl (80.0-96.0); MONO # 1.2 10^3/uL (0.0-0.8); NEUTROPHILS % 72.2 % (36.0-66.0); PLATELET COUNT, AUTOMATED 149 10^3/uL (150-450); RED BLOOD COUNT 5.23 10^6/uL (4.00-5.40); WHITE BLOOD COUNT 9.7 10^3/uL (4.0-10.0)
[2021-10-24 18:31] LABS: ALBUMIN 3.5 GM/DL (3.2-5.2); ALT/SGPT 18 U/L (12-78); BILIRUBIN,TOTAL 0.4 MG/DL (0.2-1.0); BLOOD UREA NITROGEN 22 MG/DL (7-18); CALCIUM LEVEL 8.3 MG/DL (8.8-10.2); CARBON DIOXIDE LEVEL 36 MEQ/L (21-32); CHLORIDE LEVEL 101 MEQ/L (98-107); CHOLESTEROL LEVEL 126 MG/DL (<200); CREATININE FOR GFR 0.74 MG/DL (0.55-1.30); FERRITIN 97 NG/ML (8-252); GLOMERULAR FILTRATION RATE > 60.0 (>45); GLUCOSE, FASTING 206 MG/DL (70-100); HDL CHOLESTEROL 45 MG/DL (>40); IRON (FE) 85 UG/DL (50-170); LDL CHOLESTEROL 60 MG/DL (<100); NON-HDL-C 81 MG/DL; POTASSIUM SERUM 3.9 MEQ/L (3.5-5.1); SODIUM LEVEL 140 MEQ/L (136-145); THYROID STIMULATING HORMONE 0.629 uIU/ML (0.358-3.740); TOTAL PROTEIN 7.3 GM/DL (6.4-8.2); TRIGLYCERIDES LEVEL 105 MG/DL (<150)
[2021-10-24 18:37] LABS: MALB URINE SIEMENS 61.3 MG/L; MAU/CREAT RATIO 25.2 MCG/MG (0.0-30.0)
[2021-10-24 18:50] LABS: HEMOGLOBIN A1c 9.4 %
== END ==
LOC: M SFHCADAM 14:44
PROVIDERS: ATTEND Physician Assistant Medical
DX: E55.9 Vitamin D deficiency, unspecified (principal); E78.5 Hyperlipidemia, unspecified; E11.65 Type 2 diabetes mellitus with hyperglycemia

== ENCOUNTER → 2022-04-07 | Outpatient (REF) | payer MEDICARE, MEDICAID ==
[2022-04-07 17:50] LABS: BASO % 0.4 % (0.0-1.0); EOS # 0.1 10^3/uL (0.0-0.5); EOS % 0.8 % (0.0-3.0); HEMATOCRIT 51.2 % (36.0-47.0); HEMOGLOBIN 15.1 g/dl (12.0-15.5); LYMPH # 1.4 10^3/uL (1.5-5.0); LYMPH % 18.5 % (24.0-44.0); MEAN CORPUSCULAR HEMOGLOBIN 29.4 pg (27.0-33.0); MEAN CORPUSCULAR HGB CONC 29.5 g/dl (32.0-36.5); MEAN CORPUSCULAR VOLUME 99.6 fl (80.0-96.0); MONO # 1.1 10^3/uL (0.0-0.8); MONO % 14.9 % (2.0-8.0); NEUTROPHILS # 4.9 10^3/uL (1.5-8.5); PLATELET COUNT, AUTOMATED 155 10^3/uL (150-450); RED BLOOD COUNT 5.14 10^6/uL (4.00-5.40); WHITE BLOOD COUNT 7.6 10^3/uL (4.0-10.0)
[2022-04-07 18:28] LABS: HEMOGLOBIN A1c 9.2 % (4.0-6.0)
[2022-04-07 19:17] LABS: CHLORIDE LEVEL 98 MMOL/L (98-107); POTASSIUM SERUM 4.5 MMOL/L (3.5-5.1); SODIUM LEVEL 140 MMOL/L (136-145)
[2022-04-07 19:18] LABS: ALBUMIN 3.6 G/DL (3.2-5.2); CARBON DIOXIDE LEVEL 37 MMOL/L (20-31)
[2022-04-07 19:21] LABS: BLOOD UREA NITROGEN 21 MG/DL (9-23)
[2022-04-07 19:23] LABS: ALKALINE PHOSPHATASE 105 U/L (46-116); GLUCOSE, FASTING 146 MG/DL (74-106); TRIGLYCERIDES LEVEL 84 MG/DL (<150)
[2022-04-07 19:25] LABS: ALT/SGPT 20 U/L (7.0-40); AST/SGOT 19 U/L (<34); BILIRUBIN,TOTAL 0.4 MG/DL (0.3-1.2); CHOLESTEROL LEVEL 104 MG/DL (<200); CREATININE FOR GFR 0.58 MG/DL (0.55-1.30); GLOMERULAR FILTRATION RATE > 60.0 (>45); HDL CHOLESTEROL 41.6 MG/DL (>40); LDL CHOLESTEROL 45.6 MG/DL (<100); NON-HDL-C 62 MG/DL; TOTAL PROTEIN 7.2 G/DL (5.7-8.2)
[2022-04-07 19:29] LABS: THYROID STIMULATING HORMONE 1.415 uIU/ML (0.55-4.78)
[2022-04-07 19:30] LABS: TOTAL 25(OH) VITAMIN D 26.5 NG/ML (20.0-100.0)
== END ==
LOC: M SFHCADAM 13:18
PROVIDERS: ATTEND Physician Assistant Medical
DX: I50.33 Acute on chronic diastolic (congestive) heart failure (principal); I11.0 Hypertensive heart disease with heart failure; G47.34 Idiopathic sleep related nonobstructive alveolar hypoventilation; J96.20 Acute and chronic respiratory failure, unspecified whether with hypoxia or hypercapnia; E78.5 Hyperlipidemia, unspecified; E55.9 Vitamin D deficiency, unspecified; E11.65 Type 2 diabetes mellitus with hyperglycemia; K31.89 Other diseases of stomach and duodenum; Z79.899 Other long term (current) drug therapy

== ENCOUNTER → 2022-04-07 | Outpatient (CLI) | payer MEDICARE, MEDICAID | LOC: M ADAMS 13:22 | PROVIDERS: ATTEND Physician Assistant Medical | DX: I50.33 Acute on chronic diastolic (congestive) heart failure (principal); I11.0 Hypertensive heart disease with heart failure; G47.34 Idiopathic sleep related nonobstructive alveolar hypoventilation; J96.20 Acute and chronic respiratory failure, unspecified whether with hypoxia or hypercapnia; Z95.2 Presence of prosthetic heart valve ==

== ENCOUNTER → 2022-04-24 | Outpatient (CLI) | payer MEDICARE | LOC: M WHC 06:40 | PROVIDERS: ATTEND Internal Medicine Critical Care Medicine | DX: R16.0 Hepatomegaly, not elsewhere classified (principal); Z90.49 Acquired absence of other specified parts of digestive tract ==

== ENCOUNTER → 2022-08-18 | Outpatient (CLI) | payer MEDICARE, MEDICAID ==
[~2022-08-18] MED LIST changes: +LIDO2SOBTL SSP; -LIDO2SOL9 SSP
== END ==
LOC: M SLEEP 20:00
PROVIDERS: ATTEND Internal Medicine Critical Care Medicine
DX: G47.30 Sleep apnea, unspecified (principal)

== ENCOUNTER → 2022-09-08 | Outpatient (REF) | payer MEDICARE, MEDICAID ==
[2022-09-08 13:37] LABS: ALBUMIN 3.7 G/DL (3.2-5.2); ALKALINE PHOSPHATASE 95 U/L (46-116); ALT/SGPT 18 U/L (7.0-40); AST/SGOT 18 U/L (<34); BILIRUBIN,TOTAL 0.5 MG/DL (0.3-1.2); BLOOD UREA NITROGEN 20 MG/DL (9-23); CALCIUM LEVEL 8.5 MG/DL (8.3-10.6); CARBON DIOXIDE LEVEL 35 MMOL/L (20-31); CHLORIDE LEVEL 104 MMOL/L (98-107); CREATININE FOR GFR 0.54 MG/DL (0.55-1.30); GLOMERULAR FILTRATION RATE > 60.0 (>45); GLUCOSE, FASTING 128 MG/DL (74-106); POTASSIUM SERUM 4.2 MMOL/L (3.5-5.1); SODIUM LEVEL 142 MMOL/L (136-145); TOTAL PROTEIN 6.7 G/DL (5.7-8.2)
[2022-09-08 13:38] LABS: TOTAL 25(OH) VITAMIN D 24.3 NG/ML (20.0-100.0)
== END ==
LOC: M SFHCADAM 10:31
PROVIDERS: ATTEND Physician Assistant Medical
DX: E78.5 Hyperlipidemia, unspecified (principal); E55.9 Vitamin D deficiency, unspecified; E11.65 Type 2 diabetes mellitus with hyperglycemia

== ENCOUNTER → 2022-11-13 | Outpatient (CLI) | payer MEDICARE, MEDICAID | LOC: M RADPRO 10:15 | PROVIDERS: ATTEND Internal Medicine Critical Care Medicine | DX: J98.6 Disorders of diaphragm (principal) ==

== ENCOUNTER → 2023-01-18 | Outpatient (CLI) | payer MEDICAID, MEDICARE | LOC: M RAD 13:52 | PROVIDERS: ATTEND Internal Medicine Critical Care Medicine | DX: R06.00 Dyspnea, unspecified (principal); R91.8 Other nonspecific abnormal finding of lung field | CPT/HCPCS: 71046; 78582; A9540; A9567 ==

== ENCOUNTER → 2023-03-09 | Outpatient (REF) | payer MEDICARE, MEDICAID ==
[2023-03-09 17:58] LABS: ALBUMIN 3.5 G/DL (3.2-5.2); ALKALINE PHOSPHATASE 106 U/L (46-116); ALT/SGPT 21 U/L (7.0-40); AST/SGOT 15 U/L (<34); BILIRUBIN,TOTAL 0.4 MG/DL (0.3-1.2); BLOOD UREA NITROGEN 20 MG/DL (9-23); CALCIUM LEVEL 9.4 MG/DL (8.3-10.6); CARBON DIOXIDE LEVEL 40 MMOL/L (20-31); CHLORIDE LEVEL 100 MMOL/L (98-107); CHOLESTEROL LEVEL 119 MG/DL (<200); CHOLESTEROL RISK RATIO 2.57 (<5); CREATININE FOR GFR 0.54 MG/DL (0.55-1.30); GLOMERULAR FILTRATION RATE > 60.0 (>45); GLUCOSE, FASTING 186 MG/DL (74-106); HDL CHOLESTEROL 46.3 MG/DL (>40); LDL CHOLESTEROL 44.7 MG/DL (<100); NON-HDL-C 72.7 MG/DL; POTASSIUM SERUM 4.1 MMOL/L (3.5-5.1); SODIUM LEVEL 145 MMOL/L (136-145); TOTAL PROTEIN 7.1 G/DL (5.7-8.2); TRIGLYCERIDES LEVEL 140 MG/DL (<150)
[2023-03-09 18:00] LABS: THYROID STIMULATING HORMONE 0.872 uIU/ML (0.55-4.78)
[2023-03-09 18:03] LABS: HEMOGLOBIN A1c 7.4 % (4.0-6.0)
== END ==
LOC: M SFHCADAM 14:12
PROVIDERS: ATTEND Physician Assistant Medical
DX: I11.0 Hypertensive heart disease with heart failure (principal); E78.5 Hyperlipidemia, unspecified; E55.9 Vitamin D deficiency, unspecified; Z79.899 Other long term (current) drug therapy

== ENCOUNTER → 2023-07-19 | Outpatient (CLI) | payer MEDICARE ==
[~2023-07-19] MED LIST changes: +LIDO100S29 SSP; -LIDO2SOBTL SSP
== END ==
LOC: M WHC 13:34
PROVIDERS: ATTEND Physician Assistant Medical
DX: Z12.31 Encounter for screening mammogram for malignant neoplasm of breast (principal)

== ENCOUNTER → 2023-08-30 | Outpatient (CLI) | payer MEDICARE | LOC: M SLEEP 20:00 | PROVIDERS: ATTEND Internal Medicine Critical Care Medicine | DX: G47.33 Obstructive sleep apnea (adult) (pediatric) (principal) ==

== ENCOUNTER → 2023-10-22 | Outpatient (CLI) | payer MEDICARE ==
[2023-10-22 16:41] LABS: BLOOD UREA NITROGEN 20 MG/DL (9-23); CALCIUM LEVEL 9.2 MG/DL (8.3-10.6); CARBON DIOXIDE LEVEL > 40.0 MMOL/L (20-31); CHLORIDE LEVEL 101 MMOL/L (98-107); CREATININE FOR GFR 0.57 MG/DL (0.55-1.30); GLOMERULAR FILTRATION RATE > 60.0 (>45); GLUCOSE, FASTING 171 MG/DL (74-106); POTASSIUM SERUM 4.8 MMOL/L (3.5-5.1); SODIUM LEVEL 142 MMOL/L (136-145)
== END ==
LOC: M PLALAB 11:45
PROVIDERS: ATTEND Physician Assistant
DX: I50.32 Chronic diastolic (congestive) heart failure (principal)

== ENCOUNTER → 2023-12-15 | Outpatient (CLI) | payer MEDICARE ==
[2023-12-16 11:52] LABS: BLOOD UREA NITROGEN 14 MG/DL (9-23); CALCIUM LEVEL 9.3 MG/DL (8.3-10.6); CARBON DIOXIDE LEVEL > 40.0 MMOL/L (20-31); CHLORIDE LEVEL 103 MMOL/L (98-107); CREATININE FOR GFR 0.61 MG/DL (0.55-1.30); GLOMERULAR FILTRATION RATE > 60.0 (>39); GLUCOSE, FASTING 111 MG/DL (74-106); POTASSIUM SERUM 5.9 MMOL/L (3.5-5.1); SODIUM LEVEL 142 MMOL/L (136-145)
== END ==
LOC: M PLALAB 16:40
PROVIDERS: ATTEND Physician Assistant
DX: I50.32 Chronic diastolic (congestive) heart failure (principal)

== ENCOUNTER → 2024-05-17 | Outpatient (CLI) | payer MEDICARE ==
[2024-05-17 14:02] LABS: BLOOD UREA NITROGEN 22 MG/DL (9-23); CALCIUM LEVEL 9.1 MG/DL (8.3-10.6); CARBON DIOXIDE LEVEL 36 MMOL/L (20-31); CHLORIDE LEVEL 103 MMOL/L (98-107); CREATININE FOR GFR 0.54 MG/DL (0.55-1.30); GLOMERULAR FILTRATION RATE > 60.0 (>39); GLUCOSE, FASTING 106 MG/DL (74-106); POTASSIUM SERUM 4.6 MMOL/L (3.5-5.1); SODIUM LEVEL 143 MMOL/L (136-145)
== END ==
LOC: M PLALAB 09:35
PROVIDERS: ATTEND Physician Assistant
DX: I50.32 Chronic diastolic (congestive) heart failure (principal)

== ENCOUNTER 2024-06-27 20:37 | Inpatient (IN) | payer MEDICAID, MEDICARE ==
[~2024-06-27] VITALS: Ht 157.5 cm; Wt 78.4 kg
[~2024-06-27 20:37] MED LIST changes: -ASPI81CH33 PO; -FARX1TAB3 PO; -FERR325T3 PO; -LEVO75TAB PO; -METR-265 PO; -PANT40TA29 PO; -TORS20TA2 PO; -VITA200035 PO
[2024-06-27 21:43] LABS: BASO % 0.4 % (0.0-1.0); EOS # 0.1 10^3/uL (0.0-0.5); EOS % 0.6 % (0.0-3.0); HEMATOCRIT 21.1 % (36.0-47.0); LYMPH # 1.4 10^3/uL (1.5-5.0); MEAN CORPUSCULAR HEMOGLOBIN 19.5 pg (27.0-33.0); MEAN CORPUSCULAR HGB CONC 25.6 g/dl (32.0-36.5); MEAN CORPUSCULAR VOLUME 76.2 fl (80.0-96.0); MONO # 1.4 10^3/uL (0.0-0.8); NEUTROPHILS # 4.9 10^3/uL (1.5-8.5); NEUTROPHILS % 62.7 % (36.0-66.0); PLATELET COUNT, AUTOMATED 215 10^3/uL (150-450); RED BLOOD COUNT 2.77 10^6/uL (4.00-5.40); WHITE BLOOD COUNT 7.8 10^3/uL (4.0-10.0)
[2024-06-27 21:47] LABS: HEMOGLOBIN 5.4 g/dl (12.0-15.5)
[2024-06-27 22:04] LABS: CPK CREATINE PHOSPHOKINASE 71 U/L (34-145)
[2024-06-27 22:05] LABS: ALBUMIN 3.4 G/DL (3.2-5.2); ALKALINE PHOSPHATASE 85 U/L (35-104); ALT/SGPT 12 U/L (7.0-40); AST/SGOT 12 U/L (<34); BILIRUBIN,DIRECT 0.2 MG/DL (<0.4); BILIRUBIN,TOTAL 0.4 MG/DL (0.3-1.2); BLOOD UREA NITROGEN 25 MG/DL (9-23); CALCIUM LEVEL 8.5 MG/DL (8.3-10.6); CARBON DIOXIDE LEVEL 35 MMOL/L (20-31); CHLORIDE LEVEL 101 MMOL/L (98-107); CREATININE FOR GFR 0.87 MG/DL (0.55-1.30); GLOMERULAR FILTRATION RATE > 60.0 (>39); GLUCOSE, FASTING 133 MG/DL (74-106); POTASSIUM SERUM 4.3 MMOL/L (3.5-5.1); SODIUM LEVEL 144 MMOL/L (136-145); TOTAL PROTEIN 7.1 G/DL (5.7-8.2)
[2024-06-27 22:08] LABS: CK-MB VALUE MASS < 1.0 NG/ML (<3.6)
[2024-06-28] VITALS (14 sets, daily range): BP systolic 91–146; BP diastolic 51–74; TEMP 96.8–98.2; O2SAT 99–100
[2024-06-28 00:03] LABS: IRON (FE) 13 UG/DL (50-170)
[2024-06-28] MEDS ORDERED: FARX1TAB3 PO (00:03)
[2024-06-28] MEDS ORDERED: ASPI81CH33 PO (00:03)
[2024-06-28] MEDS ORDERED: MED REC IN PROGRESS XX SCH (00:10)
[2024-06-28] MEDS ORDERED: VITA200035 PO (00:20)
[2024-06-28 00:43] LABS: PERCENT SATURATION 3.3 % (13.2-45.0); TOTAL IRON BINDING CAPACITY 395 UG/DL (250-425)
[2024-06-28] MEDS ORDERED: MAALOX 30 ML SUSP *UDC PO PRN (01:45)
[2024-06-28] MEDS ORDERED: MOM 30ML SUSPENSION UDC PO PRN (01:45)
[2024-06-28] MEDS: SODIUM CHLORIDE 0.9% 1000 ML IV SCH (01:45)
[2024-06-28] MEDS ORDERED: ACETAMINOPHEN 325 MG TAB PO PRN (01:45)
[2024-06-28] MEDS: PANTOPRAZOLE 40MG VIAL IV ONE (03:20)
[2024-06-28] MEDS: FUROSEMIDE 40MG/4ML VIAL IV ONE (03:21)
[2024-06-28] MEDS ORDERED: DEXTROSE 50% 50ML SYRINGE IV PRN (07:15)
[2024-06-28] MEDS ORDERED: GLUCOSE 4 GM CHEW PO PRN (07:15)
[2024-06-28] MEDS ORDERED: GLUCAGON INJ 1MG VIAL SC PRN (07:15)
[2024-06-28] MEDS: INSULIN LISPRO (NovoLOG) PER UNIT SC SCH (07:30)
[2024-06-28] MEDS ORDERED: ISOVUE-370 76% 100ML VIAL As Ordered ONE (07:34)
[2024-06-28 08:03] LABS: FERRITIN 3.8 NG/ML (7.3-270.7)
[2024-06-28] MEDS ORDERED: HOME MED LIST COMPLETE! XX SCH (08:20)
[2024-06-28] MEDS: DOCUSATE SODIUM 100MG CAPSULE PO SCH (08:31)
[2024-06-28] MEDS: ATORVASTATIN 10 MG TAB PO SCH (08:31)
[2024-06-28] MEDS: PANTOPRAZOLE 40MG VIAL IV SCH (08:31)
[2024-06-28] MEDS: DAPAGLIFLOZIN PROPANEDIOL 10MG TABLET (FARXIGA) PO SCH (08:31)
[2024-06-28] MEDS ORDERED: TORSEMIDE 20 MG TAB PO SCH (09:00)
[2024-06-28] MEDS ORDERED: LOSARTAN 25 MG TAB PO SCH (09:00)
[2024-06-28 11:06] LABS: MEAN CORPUSCULAR HEMOGLOBIN 21.6 pg (27.0-33.0); MEAN CORPUSCULAR HGB CONC 28.3 g/dl (32.0-36.5); MEAN CORPUSCULAR VOLUME 76.5 fl (80.0-96.0); PLATELET COUNT, AUTOMATED 198 10^3/uL (150-450); RED BLOOD COUNT 3.19 10^6/uL (4.00-5.40); WHITE BLOOD COUNT 7.2 10^3/uL (4.0-10.0)
[2024-06-28 11:10] LABS: HEMOGLOBIN 6.9 g/dl (12.0-15.5)
[2024-06-28 11:15] LABS: HEMATOCRIT 24.4 % (36.0-47.0)
[2024-06-28] MEDS: LevoFLOXacin 750 MG TABLET PO SCH (13:14)
[2024-06-28] MEDS: metroNIDAZOLE (FLAGYL) 500MG TABLET PO SCH (13:14)
[2024-06-28] MEDS: TORSEMIDE 20 MG TAB PO SCH (13:14)
[2024-06-28] MEDS: VITAMIN D 1,000 INTERNATIONAL UNITS TABLET PO SCH (13:14)
[2024-06-28] MEDS: FERRIC CARBOXYMALTOSE INJ 750 MG, VIAL MATE ADAPTER 1 EACH in NS 100 ML IV ONE (14:34)
[2024-06-28 19:20] LABS: HEMATOCRIT 30.2 % (36.0-47.0); MEAN CORPUSCULAR HEMOGLOBIN 22.9 pg (27.0-33.0); MEAN CORPUSCULAR HGB CONC 29.5 g/dl (32.0-36.5); MEAN CORPUSCULAR VOLUME 77.6 fl (80.0-96.0); PLATELET COUNT, AUTOMATED 191 10^3/uL (150-450); RED BLOOD COUNT 3.89 10^6/uL (4.00-5.40); WHITE BLOOD COUNT 7.5 10^3/uL (4.0-10.0)
[2024-06-28 19:25] LABS: HEMOGLOBIN 8.9 g/dl (12.0-15.5)
[2024-06-29] VITALS: BP 154/67; TEMP 97.2; O2SAT 99
[2024-06-29 03:46] VITALS: BP 141/63; TEMP 97.9; O2SAT 96
[2024-06-29 07:25] LABS: HEMATOCRIT 27.8 % (36.0-47.0); HEMOGLOBIN 8.2 g/dl (12.0-15.5); MEAN CORPUSCULAR HEMOGLOBIN 22.7 pg (27.0-33.0); MEAN CORPUSCULAR HGB CONC 29.5 g/dl (32.0-36.5); MEAN CORPUSCULAR VOLUME 76.8 fl (80.0-96.0); PLATELET COUNT, AUTOMATED 192 10^3/uL (150-450); RED BLOOD COUNT 3.62 10^6/uL (4.00-5.40); WHITE BLOOD COUNT 7.7 10^3/uL (4.0-10.0)
[2024-06-29 07:51] VITALS: BP 125/93; TEMP 98; O2SAT 100
[2024-06-29 08:12] LABS: PROCALCITONIN 0.11 ng/ml
[2024-06-29 08:21] LABS: BLOOD UREA NITROGEN 18 MG/DL (9-23); CALCIUM LEVEL 8.8 MG/DL (8.3-10.6); CARBON DIOXIDE LEVEL > 40.0 MMOL/L (20-31); CHLORIDE LEVEL 98 MMOL/L (98-107); CREATININE FOR GFR 0.78 MG/DL (0.55-1.30); GLOMERULAR FILTRATION RATE > 60.0 (>39); GLUCOSE, FASTING 97 MG/DL (74-106); MAGNESIUM LEVEL 2.1 MG/DL (1.8-2.4); POTASSIUM SERUM 3.9 MMOL/L (3.5-5.1); SODIUM LEVEL 144 MMOL/L (136-145)
[2024-06-29] MEDS: TORSEMIDE 20 MG TAB PO SCH (09:00)
[2024-06-29] MEDS: PREVNAR-20 VACCINE 0.5ML SYRINGE IM.IMMUN ONE (09:17)
[2024-06-29 12:06] VITALS: BP 127/60; TEMP 97.6; O2SAT 99
[2024-06-29 12:50] LABS: HEMATOCRIT 29.4 % (36.0-47.0); HEMOGLOBIN 8.6 g/dl (12.0-15.5); MEAN CORPUSCULAR HEMOGLOBIN 22.8 pg (27.0-33.0); MEAN CORPUSCULAR HGB CONC 29.3 g/dl (32.0-36.5); PLATELET COUNT, AUTOMATED 187 10^3/uL (150-450); RED BLOOD COUNT 3.77 10^6/uL (4.00-5.40); WHITE BLOOD COUNT 7.2 10^3/uL (4.0-10.0)
[2024-06-29] MEDS ORDERED: TORS20TA2 PO (14:17)
[2024-06-29] MEDS ORDERED: METR-265 PO (14:17)
[2024-06-29] MEDS ORDERED: LEVO75TAB PO (14:17)
[2024-06-29] MEDS ORDERED: PANT40TA29 PO (14:17)
[2024-06-29] MEDS ORDERED: FERR325T3 PO (14:20)
== END 2024-06-29 16:06 | disposition home health service (06) | DRG 811 ==
LOC: M ED 20:37 → M ED INP 06-28 01:43 → M PCU 06-28 23:53
PROVIDERS: ADMIT Student in an Organized Health Care Education/Training Program; ATTEND Student in an Organized Health Care Education/Training Program
PROC: 30233N1 Transfusion of Nonautologous Red Blood Cells into Peripheral Vein, Percutaneous Approach (ICD-10-PCS; principal; 2024-06-28)
DX: D50.0 Iron deficiency anemia secondary to blood loss (chronic) (principal); I50.33 Acute on chronic diastolic (congestive) heart failure; J96.11 Chronic respiratory failure with hypoxia; K92.2 Gastrointestinal hemorrhage, unspecified; K57.32 Diverticulitis of large intestine without perforation or abscess without bleeding; K63.2 Fistula of intestine; K86.9 Disease of pancreas, unspecified; I11.0 Hypertensive heart disease with heart failure; K21.9 Gastro-esophageal reflux disease without esophagitis; E11.9 Type 2 diabetes mellitus without complications; E78.5 Hyperlipidemia, unspecified; G47.33 Obstructive sleep apnea (adult) (pediatric); Z79.899 Other long term (current) drug therapy; Z79.84 Long term (current) use of oral hypoglycemic drugs; Z99.81 Dependence on supplemental oxygen; Z79.82 Long term (current) use of aspirin; Z88.0 Allergy status to penicillin; Z88.2 Allergy status to sulfonamides; Z88.8 Allergy status to other drugs, medicaments and biological substances; Z95.2 Presence of prosthetic heart valve; Z90.49 Acquired absence of other specified parts of digestive tract

== ENCOUNTER → 2024-06-27 | Outpatient (REF) | payer MEDICARE, MEDICAID ==
[~2024-06-27] MED LIST changes: +ASPI81CH33 PO; +FARX1TAB3 PO; +FERR325T3 PO; +LEVO75TAB PO; +METR-265 PO; +PANT40TA29 PO; +TORS20TA2 PO; +VITA200035 PO
[2024-06-27 18:35] LABS: BASO % 0.2 % (0.0-1.0); EOS % 0.3 % (0.0-3.0); HEMATOCRIT 21.1 % (36.0-47.0); LYMPH # 1.5 10^3/uL (1.5-5.0); LYMPH % 17.5 % (24.0-44.0); MEAN CORPUSCULAR HEMOGLOBIN 19.9 pg (27.0-33.0); MEAN CORPUSCULAR HGB CONC 25.6 g/dl (32.0-36.5); MEAN CORPUSCULAR VOLUME 77.9 fl (80.0-96.0); MONO # 1.6 10^3/uL (0.0-0.8); MONO % 18.5 % (2.0-8.0); NEUTROPHILS # 5.5 10^3/uL (1.5-8.5); NEUTROPHILS % 62.9 % (36.0-66.0); PLATELET COUNT, AUTOMATED 221 10^3/uL (150-450); RED BLOOD COUNT 2.71 10^6/uL (4.00-5.40); WHITE BLOOD COUNT 8.7 10^3/uL (4.0-10.0)
[2024-06-27 19:03] LABS: FERRITIN 4.5 NG/ML (7.3-270.7); IRON (FE) 8 UG/DL (50-170)
[2024-06-27 19:04] LABS: ALBUMIN 3.4 G/DL (3.2-5.2); ALKALINE PHOSPHATASE 81 U/L (35-104); ALT/SGPT 13 U/L (7.0-40); AST/SGOT 12 U/L (<34); BILIRUBIN,TOTAL 0.5 MG/DL (0.3-1.2); BLOOD UREA NITROGEN 21 MG/DL (9-23); CALCIUM LEVEL 9.2 MG/DL (8.3-10.6); CARBON DIOXIDE LEVEL 38 MMOL/L (20-31); CHLORIDE LEVEL 102 MMOL/L (98-107); CHOLESTEROL LEVEL 64 MG/DL (<200); CHOLESTEROL RISK RATIO 1.99 (<5); CREATININE FOR GFR 0.64 MG/DL (0.55-1.30); GLOMERULAR FILTRATION RATE > 60.0 (>39); GLUCOSE, FASTING 93 MG/DL (74-106); HDL CHOLESTEROL 32.1 MG/DL (>40); LDL CHOLESTEROL 21.7 MG/DL (<100); NON-HDL-C 31.9 MG/DL; POTASSIUM SERUM 4.4 MMOL/L (3.5-5.1); SODIUM LEVEL 145 MMOL/L (136-145); THYROID STIMULATING HORMONE 1.014 uIU/ML (0.55-4.78); TOTAL IRON BINDING CAPACITY 391 UG/DL (250-425); TOTAL PROTEIN 7.2 G/DL (5.7-8.2); TRIGLYCERIDES LEVEL 51 MG/DL (<150)
[2024-06-27 19:05] LABS: VITAMIN B12 LEVEL 999 PG/ML (211-911)
[2024-06-27 19:06] LABS: FOLATE 17.8 NG/ML (>5.4); FREE T4 1.07 NG/DL (0.89-1.76)
[2024-06-27 19:59] LABS: HEMOGLOBIN 5.4 g/dl (12.0-15.5)
[2024-06-29 08:38] LABS: Estimated Ave Glu(eAG) 7.6 mmol/L; Hemoglobin A1c 6.4 (<5.7)
== END ==
LOC: M SFHCADAM 14:10
PROVIDERS: ATTEND Physician Assistant Medical
DX: D50.9 Iron deficiency anemia, unspecified (principal); E78.5 Hyperlipidemia, unspecified; I11.0 Hypertensive heart disease with heart failure; E55.9 Vitamin D deficiency, unspecified

== ENCOUNTER → 2025-02-05 | Outpatient (CLI) | payer MEDICARE ==
[~2025-02-05] MED LIST changes: +ASPI81CH33 PO; +FARX1TAB3 PO; +FERR325T3 PO; +LEVO75TAB PO; +METR-265 PO; +PANT40TA29 PO; +TORS20TA2 PO; +VITA200035 PO
== END ==
LOC: M CARPUL 12:56
PROVIDERS: ATTEND Physician Assistant
DX: I08.0 Rheumatic disorders of both mitral and aortic valves (principal); Z95.3 Presence of xenogenic heart valve

== ENCOUNTER → 2025-03-09 | Outpatient (CLI) | payer MEDICARE ==
[~2025-03-09] MED LIST changes: +PROHANCE 279.3MG/ML 15ML VIAL As Ordered ONE
== END ==
LOC: M RAD 12:52
PROVIDERS: ATTEND Nurse Practitioner Family
DX: K86.9 Disease of pancreas, unspecified (principal); K92.2 Gastrointestinal hemorrhage, unspecified; R93.3 Abnormal findings on diagnostic imaging of other parts of digestive tract; Z90.49 Acquired absence of other specified parts of digestive tract
CPT/HCPCS: 74183; A9576

== ENCOUNTER → 2025-03-12 | Outpatient (REF) | payer MEDICARE ==
[~2025-03-12] MED LIST changes: -PROHANCE 279.3MG/ML 15ML VIAL As Ordered ONE
[2025-03-13 15:00] LABS: ESTIMATED AVERAGE GLUCOSE 174.0 MG/DL (60-110)
== END ==
LOC: M LAB REF 14:36
PROVIDERS: ATTEND Physician Assistant Medical
DX: K86.89 Other specified diseases of pancreas (principal); E11.65 Type 2 diabetes mellitus with hyperglycemia

== ENCOUNTER 2025-04-26 13:03 | Outpatient (CLI) | payer MEDICARE ==
[~2025-04-26] VITALS: Ht 157.5 cm; Wt 81.8 kg
[~2025-04-26 13:03] MED LIST changes: +ALBUTEROL SULFATE 2.5 MG/0.5 ML INH CONCENTRATE NEB SOLN INH PRN; +EPINEPHrine INJ 1 MG/ML 1ML AMP IM PRN; +diphenhydrAMINE 50 MG/ML VIAL IV PRN
[2025-04-26 13:45] VITALS: BP 170/68; O2SAT 100
[2025-04-26] MEDS: diphenhydrAMINE 25MG PO PRIOR TO INFUSION PO ONE (13:53)
[2025-04-26] MEDS: ACETAMINOPHEN 650MG PO PRIOR TO INFUSION PO ONE (13:53)
[2025-04-26] MEDS: IRON SUCROSE 200MG IVP IV ONE (14:22)
[2025-04-26 15:00] VITALS: BP 140/60; O2SAT 99
== END 2025-04-26 15:01 | disposition home or self-care (01) ==
LOC: M INFU 13:03
PROVIDERS: ATTEND Internal Medicine Medical Oncology
DX: D50.9 Iron deficiency anemia, unspecified (principal); Z88.0 Allergy status to penicillin; Z88.2 Allergy status to sulfonamides; Z88.8 Allergy status to other drugs, medicaments and biological substances
CPT/HCPCS: 96374; J1756

== ENCOUNTER 2025-05-08 14:20 | Outpatient (CLI) | payer MEDICARE ==
[~2025-05-08] VITALS: Ht 157.5 cm; Wt 81.8 kg
[2025-05-08] MEDS: diphenhydrAMINE 25MG PO PRIOR TO INFUSION PO ONE (14:22)
[2025-05-08] MEDS: ACETAMINOPHEN 650MG PO PRIOR TO INFUSION PO ONE (14:22)
[2025-05-08] MEDS: IRON SUCROSE 200MG IVP IV ONE (14:23)
[2025-05-08 14:25] VITALS: BP 151/68; O2SAT 97
[2025-05-08 15:11] VITALS: BP 166/77; O2SAT 99
[2025-05-08] MEDS: dexameTHASONE 20 MG IV PRIOR TO INFUSION IV ONE (15:22)
== END 2025-05-08 15:20 ==
LOC: M INFU 14:20
PROVIDERS: ATTEND Internal Medicine Medical Oncology
DX: D50.9 Iron deficiency anemia, unspecified (principal); Z88.0 Allergy status to penicillin; Z88.2 Allergy status to sulfonamides; Z88.8 Allergy status to other drugs, medicaments and biological substances
CPT/HCPCS: 96374; J1756